=== PATIENT | male | born 1955 | race Caucasian/White ===

== ENCOUNTER 2021-09-06 11:10 | Emergency (ER) | payer MEDICARE, SELFPAY ==
--- NOTE | ~2021-09-06 | CT_ITS ---
EXAMINATION: CT abdomen pelvis w con EXAM DATE: 09/06/2021 12:29 INDICATION: Hematochezia, abdominal pain, GI bleeding, 3 episodes. History of bowel perforation. TECHNIQUE: Spiral CT of the abdomen and pelvis was performed following intravenous injection of 100 m L Omnipaque 350. Axial, coronal and sagittal images of the abdomen and pelvis were reviewed. The do se-length product (DLP) for this examination was 1071.52 mGy-cm. The exposure was tailored according to patient size (auto mA exposure control), and iterative reconstruction (ASIR) was used as addition al dose reduction technique. There is no prior study for comparison. FINDINGS: There is hepatic steatosis without suspicious focal lesion identified. Spleen, adrenal glan ds, pancreas are unremarkable. Gallbladder is unremarkable. No biliary obstruction. Portal and spl enic veins are patent. Kidneys enhance symmetrically. There is no hydronephrosis. 2.7 cm left renal cyst. Mild prostatomegaly. Some diffuse bladder wall thickening, could indicate chronic cystitis. Acute cystitis not excludable. There is no retroperitoneal or pelvic lymphadenopathy. There is mod erate scattered arteriosclerotic disease. Evaluation of the colon demonstrates moderate sigmoid diverticulosis without evidence of diverticulit is. There is some fluid within the sigmoid colon, but not proximally. This could indicate that source of bleeding is somewhere within this region rather than more proximal. The appendix is normal. The stomach and small bowel are unremarkable. No free intraperitoneal gas. Heart is normal in size wi th endocardial fat along the inferior wall, evidence of old infarction. The lung bases are unremarka ble. There are no osteoblastic or osteolytic lesions identified. IMPRESSION: 1. Small amount of sigmoid fluid, moderate diverticulosis. No colonic fluid elsewhere, which could in dicate that source of bleeding is sigmoid region. No perisigmoid inflammation. 2. Endocardial fat along the anterior wall consistent with prior infarction. 3. Hepatic steatosis. Reviewed, dictated and finalized at location A. IMPRESSION: 1. Small amount of sigmoid fluid, moderate diverticulosis. No colonic fluid els ewhere, which could indicate that source of bleeding is sigmoid region. No lolly sigmoid inflammation. 2. Endocardial fat along the anterior wall consistent with prior infarction. 3. Hepatic steatosis.
[2021-09-06 11:13] VITALS: BP 163/85; PULSE 63; RESP 16; TEMP 36.6; O2SAT 97
--- NOTE | 2021-09-06 11:21 | ED.GIBLEED ---
HPI - GI Bleed General Chief complaint: GI Bleed Stated complaint: GI Bleeding Time Seen by Provider: 09/06/21 11:21 Source: patient Mode of arrival: ambulatory Limitations: no limitations History of Present Illness HPI Narrative: Patient is a 65-year-old male with a history of acid reflux, hypertension, coronary artery disease, type 2 diabetes presenting for evaluation of bright red blood per rectum. Patient states that over the course of the morning, he has had 2 bowel movements with bright red blood present in them. Patient denies any pain. He denies any fever, chills, night sweats. No unintentional weight loss. Patient states that he ate shrimp, Mohawk fries for dinner last night. Does not think that any food was undercooked. No recent travel. Patient denies any dark or melanotic stool. No recent Pepto-Bismol, ibuprofen, beet ingestion. Patient denies history of this in the past. Patient states he does have a history of bowel perforation many years ago for which he had 5 pus pockets. Patient states that he required a large surgery of [facility], but never received a diagnosis as to why he had a bowel perforation. Patient does not follow with a french instructor. He is compliant with his medications including Plavix. Related Data Home Medications Medication Instructions Recorded Confirmed famotidine 20 mg tablet 20 mg PO BID tablet 01/07/21 05/17/21 atorvastatin 10 mg tablet 10 mg PO DAILY tablet 05/17/21 05/17/21 glipizide 10 mg tablet 10 mg PO BID tablet 05/17/21 05/17/21 metoprolol tartrate 25 mg tablet 25 mg PO BID tablet 05/17/21 05/17/21 Allergies Allergy/AdvReac Type Severity Reaction Status Date / Time No Known Allergies Allergy Mild Verified 09/06/21 11:18 Review of Systems Review of Systems: CONSTITUTIONAL: Denies fever, chills, or sweats. EYES: Denies visual changes, redness, or discharge. ENT: Denies rhinorrhea, congestion, sore throat, or otalgia. CARDIOVASCULAR: Denies chest pain, palpitations, or edema. RESPIRATORY: Denies cough or dyspnea. GASTROINTESTINAL: Denies abdominal pain, nausea, vomiting, reports loose stools this morning, reports bright red blood per rectum GENITOURINARY: Denies dysuria or hematuria. SKIN: Denies rash or itching. MUSCULOSKELETAL: Denies back pain, joint pain, or myalgia. NEUROLOGIC: Denies headache, numbness, or weakness. [facility] Past Medical History Medical History CAD in [place] artery Coronary artery disease Dyslipidemia, goal LDL below 100 Erectile dysfunction 06/11/2018 Essential (primary) hypertension GERD without esophagitis Myocardial infarction Type 2 diabetes mellitus without complication, without long-term current use of insulin Surgical History Surgical History History of angioplasty (~2010) History of cardiac cath 09/2010 History of coronary artery stent placement (~2010) x2 History of exploratory laparotomy 1980 for perforated intestine Family History Family History Father Family history of cardiovascular disease, Onset Age: 44 Acute myocardial infarction, Onset Age: 44 Family history of coronary artery disease, Onset Age: 44 Other Diabetes mellitus Social History Social History Smoking packs per day: 1 Smoking cigarettes per day: 20.0 Years smoked: 48 Smoking pack-years: 48.00 Smoking status: Current every day smoker Tobacco type: cigarettes Alcohol intake: current Alcohol use details: consumes 5 beers occasionally Substance use: never Substance use type: does not use Exam Narrative: GENERAL: Awake, alert, conversant HEAD: Normocephalic, atraumatic. EYES: PERRLA and EOMI. ENT: Nares clear, no rhinorrhea or epistaxis. Mucous membranes moist. NECK: Supple
[2021-09-06 11:29] LABS: Basophils Absolute Auto 0.1 K/mm3 (0.0-0.1); Eosinophils Absolute Auto 0.3 K/mm3 (0-0.3); Eosinophils Percent Auto 2.4 % (0-4.4); Hematocrit 47.9 % (42.0-52.0); Hemoglobin 15.7 g/dL (14.0-18.0); Immature Granulocyte Absolute 0.02 K/mm3 (0.00-0.031); Immature Granulocyte Percent A 0.2 % (0-0.5); Lymphocytes Absolute Auto 3.18 K/mm3 (0.9-3.2); Lymphocytes Percent Auto 30.3 % (18.3-44.2); Mean Corpuscular HGB Conc 32.8 g/dl (32-36); Mean Corpuscular Hemoglobin 30.4 pg (26-34); Mean Corpuscular Volume 92.6 fl (80-100); Mean Platelet Volume 9.7 fl (7.4-10.4); Monocytes Absolute Auto 0.6 K/mm3 (0.1-0.6); Neutrophils Absolute Auto 6.3 K/mm3 (1.3-6.7); Neutrophils Percent Auto 60.1 % (45.5-73.1); Platelet Count Result 273 k/mm3 (150-375); Red Blood Count 5.17 M/mm3 (4.6-6.20); Red Cell Distribution Width 13.2 % (11.5-14.5); White Blood Count 10.5 K/mm3 (4.5-10.0)
[2021-09-06 11:42] LABS: Prothrombin Time 12.8 Seconds (11.1-14.7)
[2021-09-06 11:43] LABS: Partial Thromboplastin Time 25.5 SECONDS (22.3-36.8)
[2021-09-06 11:54] LABS: Alanine Aminotransferase 43 U/L (4-50); Albumin Level 4.6 g/dL (3.5-5.1); Alkaline Phosphatase 72 U/L (38-126); Anion Gap 7 mmol/L (8-16); Aspartate Amino Transferase 27 U/L (17-59); Bilirubin,Total 0.5 mg/dL (0.2-1.3); Blood Urea Nitrogen 14 mg/dL (9-20); Calcium 10.2 mg/dL (8.4-10.2); Carbon Dioxide 28 mmol/L (22-30); Chloride 105 mmol/L (98-107); Estimated CRCL calculation 79 ml/min; Estimated Glomerular Filt Rate > 60; Glucose 159 mg/dL (65-110); Potassium 4.8 mmol/L (3.4-5.0); Sodium 140 mmol/L (137-145)
[2021-09-06 13:09] VITALS: BP 149/74; PULSE 61; RESP 16; O2SAT 99
== END 2021-09-06 13:12 | disposition home or self-care (01) ==
PROVIDERS: Emergency Provider Emergency Medicine; PCP Family Medicine
DX: K57.90 Diverticulosis of intestine, part unspecified, without perforation or abscess without bleeding (principal); K62.5 Hemorrhage of anus and rectum; I25.10 Atherosclerotic heart disease of native coronary artery without angina pectoris; I10 Essential (primary) hypertension; I25.2 Old myocardial infarction; E78.5 Hyperlipidemia, unspecified; E11.9 Type 2 diabetes mellitus without complications; K21.9 Gastro-esophageal reflux disease without esophagitis; Z95.5 Presence of coronary angioplasty implant and graft; F17.210 Nicotine dependence, cigarettes, uncomplicated; K76.0 Fatty (change of) liver, not elsewhere classified; Z79.84 Long term (current) use of oral hypoglycemic drugs
CPT/HCPCS: 36415; 74177; 80053; 85025; 85610; 85730; 86850; 86900; 86901; 99284; Q9967

== ENCOUNTER 2024-11-25 09:56 | Outpatient (CLI) | payer MEDICARE, SELFPAY ==
--- NOTE | 2024-11-25 | ECHO_ITS ---
Patient Info Name: Jatinder Hassan Age: 69 years : 1955 Gender: Male Ht: 72 in Wt: 215 lbs BSA: 2.25 m2 HR: 82 bpm BP: 122 / 81 mmHg Technical Quality: Fair Exam Date: 11/25/2024 10:24 AM Exam Location: Echo Lab Patient Status: Outpatient Admit Date: 11/25/2024 Staff Ordering Physician: AlexGumaro MD [employer]: Karishma Pacheco RDCS Attending Provider: AlexGumaro MD Referring Physician: Bill RAMIREZ; Exam Type: CA echo dop color flow w con Study Info Indications I10 - Essential (primary) hypertension Complete two-dimensional, color flow and Doppler transthoracic echocardiogram is performed with contrast to opacify the left ventricle and to improve the deliniation of the left ventricle endocardial borders. Contrast/Agitated Saline Contrast/Ag. Saline: Definity Amount: 2.00 ml Administered By: Karishma Pacheco RDCS New IV Access: Antecubital Space and Right Site Condition: No extravasation, Site dressing applied and IV removed Summary 1. Left ventricular systolic function is normal, estimated at 50-55%. 2. Left ventricular septal wall motion is abnormal with septal motion related to bundle branch block. 3. The left ventricular diastolic function is grade I diastolic dysfunction. 4. There is trace tricuspid valve regurgitation. 5. No pulmonary hypertension, estimated pulmonary arterial systolic pressure is 24 mmHg. Left Ventricle Left ventricular chamber dimension is normal. Left ventricular systolic function is normal, estimated at 50-55%. There is no increased left ventricular wall thickness. Left ventricular septal wall motion is abnormal with septal motion related to bundle branch block. The left ventricular diastolic function is grade I diastolic dysfunction. Right Ventricle Right ventricular chamber dimension is normal. Right ventricular systolic function is normal. Left Atria Left atrial chamber dimension is normal. Right Atria Right atrial chamber dimension is normal. Atrial Septum Intact interatrial septum visualized by color flow imaging. Aortic Valve The aortic valve is trileaflet. There is mild aortic valve sclerosis. There is no aortic valve stenosis. There is no aortic valve regurgitation. Pulmonic Valve The pulmonic valve is normal. There is no pulmonic valve stenosis. There is no pulmonic regurgitation. Mitral Valve The mitral valve has normal leaflets. There is no mitral valve stenosis. There is no mitral valve regurgitation. Tricuspid Valve The tricuspid valve leaflets are normal. There is no significant tricuspid valve stenosis. There is trace tricuspid valve regurgitation. No pulmonary hypertension, estimated pulmonary arterial systolic pressure is 24 mmHg. Pericardium/Pleural The pericardium appears normal. There is no pericardial effusion. Inferior Vena Cava Normal inferior vena cava with >50% collapse upon inspiration consistent with Empty right atrial pressure, 5 mmHg. Aorta The aortic root size at the sinus of Valsalva is normal. The prox ascending aorta size is normal. Left Ventricular Outflow Tract Name Value Normal LVOT 2D LVOT Diameter 1.91 cm LVOT Doppler LVOT Peak Gradient 5 mmHg LVOT Mean Gradient 3 mmHg LVOT VTI 19.31 cm LVOT VTI/AV VTI Ratio 0.88 LVOT Stroke Volume 55.49 ml LVOT CO 3.90 l/min LVOT CI 1.74 L/min/m2 Pulmonic Valve Name Value Normal RVOT Doppler RVOT Peak Gradient 2 mmHg PV Doppler PV Peak Gradient 3 mmHg Mitral Valve Name Value Normal MV Doppler MV Decel [place] 248.16 cm/s2 MV PHT 0 s MV Area (PHT) 3.84 cm2 4.00-5.00 MV Diastolic Function MV E Peak Velocity 49.01 cm/s MV A Peak Velocity 84.30 cm/s MV E/A 0.58 MV Decel Time 0 s Tricuspid Valve Name Value Normal TV Regurgitation Doppler TR Peak Velocity 216.54 cm/s TR Peak Gradient 13 mmHg Estimated PAP/RSVP RA Pressure 5 mmHg <=5 PA Systolic Pressure 24 mmHg <36 RV Systolic Pressure 24 mmHg <36 Aorta Name Value Normal Ascending Aorta Ao Root Diameter (MM) 4.21 cm Ao Root Diam Index (MM) 1.87 cm/m2 Aortic Valve Name Value Normal AV Doppler AV Peak Velocity 127.80 cm/s AV Peak Gradient 7 mmHg AV Mean Gradient 4 mmHg AV VTI 22.06 cm AV Area (Cont Eq VTI) 2.52 cm2 >=3.00 AV Area (Cont Eq Dom) 2.42 cm2 AV Regurgitation 2D LVOT Area 2.87 cm2 Ventricles Name Value Normal LV Dimensions 2D/MM IVS Diastolic Thickness (2D) 1.38 cm 0.60-1.00 IVS Diastole Thickness (MM) 0.86 cm 0.60-1.00 LVID Diastole (2D) 4.39 cm 4.20-5.80 LVID Diastole (MM) 7.39 cm 4.20-5.80 LVIW Diastolic Thickness (2D) 0.88 cm 0.60-1.00 LVIW Diastolic Thickness (MM) 1.57 cm 0.60-1.00 LVID Systole (2D) 2.75 cm 2.50-4.00 LVID Systole (MM) 4.35 cm 2.50-4.00 LVOT Diameter 1.91 cm LV Mass (2D Cubed) 174.92 g 88.00-224.00 LV Mass Index (2D Cubed) 0.01 g/cm2 0.00-0.01 Relative Wall Thickness (2D) 0.40 LV Mass (MM Cubed) 453.33 g 88.00-224.00 LV Mass Index (MM Cubed) 0.02 g/cm2 0.00-0.01 Relative Wall Thickness (MM) 0.43 LV Fractional Shortening/Ejection Fraction 2D/MM LV Fractional Shortening (2D) 37 % 25-43 LV Fractional Shortening (MM) 41 % 25-43 LV EF (MM Teicholz) 70 % 52-72 LV EF (2D Teicholz) 68 % 52-72 LV Diastolic Volume (4C MOD) 127.99 ml LV EF (4C MOD) 69 % LV Diastolic Volume (2C MOD) 132.86 ml LV EF (2C MOD) 57 % LV Diastolic Volume (BP MOD) 131.53 ml 62.00-150.00 LV Diastolic Volume Index (BP MOD) 0.06 l/m2 0.03-0.07 LV Systolic Volume (BP MOD) 49.62 ml 21.00-61.00 LV Systolic Volume Index (BP MOD) 0.02 l/m2 0.01-0.03 LV EF (BP MOD) 62 % 52-72 LV Diastolic Length (4C) 7.88 cm LV Systolic Length (4C) 6.58 cm LV Stroke Volume (4C MOD) 87.87 ml Atria Name Value Normal LA Dimensions LA Dimension (MM) 3.73 cm 3.00-4.10 LA Volume (4C A-L) 55.69 ml LA Volume (BP A-L) 61.40 ml RA Dimensions RA Area (4C) 16.85 cm2 <=18.00 Report Signatures
[2024-11-25] MEDS: PERFLUTREN LIPID MICROSPHERES 1.5 ML VIAL DILUTED TO 10 ML TOTAL VOLUME IV PUSH (11:00)
--- NOTE | 2024-11-25 11:18 | IVDEFINITY ---
Prior to administration of IV Definity the patient was educated on the risks and benefits of the imaging enhancing agent including potential adverse side effects. The patient verbalized understanding. Allergies were verified. No exclusion criteria were identified and at least one of the following inclusion criteria were met: 1) physician request, 2) patient technically difficult to image (per the [place] [employer]ocardi[employer] guidelines of two or more segments not discernable within the apical view), or 3) questionable left ventricular function. ?
== END 2024-11-25 09:57 | disposition home or self-care (01) ==
LOC: ANHCARD 09:59
PROVIDERS: PCP Family Medicine; Visit Provider Internal Medicine Cardiovascular Disease
DX: I11.9 Hypertensive heart disease without heart failure (principal); I44.7 Left bundle-branch block, unspecified
CPT/HCPCS: 93306; C8929; Q9957

== ENCOUNTER 2025-09-09 11:09 | Outpatient (CLI) | payer MEDICARE, SELFPAY ==
--- OUTSIDE RECORDS SUMMARY | 2020-09-09 04:20 | XMS_ITS | Continuity of Care Document ---
Author Organization [facility] Address [address] [place] [address] Phone Care Team Providers Care Noodle Maker Name Role Phone Antonio Flores MD, MD Unavailable Unavailable Allergies, Adverse Reactions, Alerts Substance Reaction Status Criticality No Known Allergies Active No Inform ation Medications Medication Instructions Dosage Effective Dates (start - stop) Status Comments Plavix 75 mg tablet - Active metformin 1,000 mg tablet take 1 tablet by oral route 2 times every day with morning and evening meals 1000 MG - Active lisinopril 5 mg tablet - Active metoprolol succinate ER 50 mg tablet,extended release 24 hr - Active atorvastatin 10 mg tablet - Active glipizide 10 mg tablet take 1 tablet by oral route every day before a meal 10 MG - Active Procedures Procedure Date X-ray exam shoulder minimum 2 views Kenalog Triamcinolone acetonide inj Asp/Injection, Major Joint W/ Ultrasound Office/outpatient visit,[facility] 2019 Advance Directives Directive Yes / No Effective Date File Name No Information Encounters Encounter Description Practice Location Reason(s) For Visit Diagnoses Date Provider Providers Copied on Encounter Office/outpa tient visit,new, [facility], [address] [facility] [facility], [place], [place], [id number], [place] tel:[phone] [facility] right shoulder pain (chief complaint) Calcific tendinitis of right shoulderIncomplet e rotatr-cuff tear/ruptr of r shoulder, not traumaBursitis of right shoulder 0 Sandra Alvarez. [address] [facility] [address], [address], [place], [place], [id number] , [place]. tel:[phone] Referring Provider: Antonio Flores MD T, [address] [facility] [address], [place], [address] . tel:[phone] Family History Family Member Type Diagnosis Age At Onset No Information Payers Payer name Insurance type Covered republican ID Authoriza tiian(s) [facility] [id number] Social History Type Description Quantity Date Captured Comments Alcohol Use Details Unknown Caffeine Use Details Unknown Tobacco Use Status Smoking Status Current every day smoker 2019 Non-Smoking Tobacco Use Details : No Details Available : 2.00 per day Sex Male Vital Signs Date / Time: Height Weight BMI Pulse Rate Blood Pressure Temperature Respiratory Rate Body Surface Area Head Circumference Head Circ. Percentile Wt./John. Percentile BMI percentile Pulse Ox Inhaled Ox 11:02 AM 72.00 in 100.698 kg (222.00 lbs) 30.1 1 kg/m anaid (2) Chief Complaint And Reason For Visit From encounter dated '09/09/2020 10:20'. right shoulder pain (chief complaint). Description: Mr Hassan is a 64 year old male who complains of right shoulder pain. He presents with pain on the right side. He states that the symptoms have been acute non-traumatic and began 6 weeks ago. The symptoms occur constantly. The problem is unchanged. Currently the patient states that the symptoms are moderate-severe. The pain is described as aching and stabbing. The symptoms occur with activity. He rates his current pain as 8/10. The symptoms are aggravated by daily activities, lifting away from the body, reaching behind, reaching overhead and sleeping in any position. Jatinder states that the symptoms are relieved by otc medicines and rest. In addition to right shoulder pain the patient is also experiencing decreased mobility, weakness and joint tenderness. Pertinent negatives include fever, joint instability and tingling in the arms. Prior NSAIDs include unspecified NSAIDS. He has had no previous treatment. Patient has not had any pertinent therapy for this condition. Patient has had no prior surgeries. There were no previous episodes. He experienced no previous injury. 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 He presents with pain on the right side. He states that the symptoms have been acute non-traumatic and began 6 weeks ago. The symptoms occur constantly. The problem is unchanged. Currently the patient states that the symptoms are moderate-severe. The pain is described as aching and stabbing. The symptoms occur with activity. He rates his current pain as 8/10. The symptoms are aggravated by daily activities, lifting away from the body, reaching behind, reaching overhead and sleeping in any position. Jatinder states that the symptoms are relieved by otc medicines and rest. In addition to right shoulder pain the patient is also experiencing decreased mobility, weakness and joint tenderness. Pertinent negatives include fever, joint instability and tingling in the arms. Prior NSAIDs include unspecified NSAIDS. He has had no previous treatment. Patient has not had any pertinent therapy for this condition. Patient has had no prior surgeries. There were no previous episodes. He experienced no previous injury. Functional Status Date Functional Assessmen t No Information Instructions Date Instruction Additional Infor mation The patient would li ke to proceed with a subacromial injection today, along with continued icing, NSAIDs/Tylenol, activity modifications, and physical therapy guided rehab and/or home strengthening exercises as appropriate. We discussed we could repeat an injection again in 12 weeks or more vs. more likely obtaining an MRI if not improved. The patient will follow up on an as needed basis and was instructed to call with any issues or concerns. Questions answered, verbalized understanding. Related to Bursitis of right shoulder Assessments Type Assessment Date assessment Calcific tendinitis of right dany ulder assessment Incomplete rotatr-cuff tear/rupt r of r shoulder, not trauma assessment Bursitis of right shoulder impression We discussed in deta il the symptoms, causes, treatment options, and expected outcomes of the patient's rotator cuff calcific tendonitis/bursitis and likely partial thickness tearing. We discussed the role of initial non-operative management strategies, including icing, the judicious use of anti-inflammatory medications with the approval of the patient's primary care physician, activity modifications, physical therapy and/or home exercises. We discussed the role of cortisone injections as well as biologic injections such as PRP, and the possible need for surgical intervention should non-surgical treatments fail. After a detailed discussion the patient and I have elected to proceed with the following plan. Mental Status Date Cognitive Assessment Orientation - [place] ed to time, place, person, situation.Normal Orientation Patient Care Teams Name Effective Dates (start - stop) Status Members No Information
[2025-09-09 13:10] LABS: Alanine Aminotransferase 33 U/L (6-50); Albumin Level 3.4 g/dL (3.5-5.1); Alkaline Phosphatase 211 U/L (38-126); Anion Gap 6 mmol/L (4-12); Aspartate Amino Transferase 36 U/L (17-59); Bilirubin,Total 0.8 mg/dL (0.2-1.3); Blood Urea Nitrogen 41 mg/dL (9-20); Calcium 8.6 mg/dL (8.4-10.2); Carbon Dioxide 27 mmol/L (22-30); Chloride 101 mmol/L (98-107); Estimated Glomerular Filt Rate 52; Glucose 274 mg/dL (65-110); Potassium 4.8 mmol/L (3.4-5.0); Sodium 134 mmol/L (137-145); Total Protein 6.5 g/dL (6.3-8.2)
--- OUTSIDE RECORDS SUMMARY | 2025-09-09 13:27 | XMS_ITS ---
Author Organization [facility] [address] Address [address] [place] [address] Care Team Providers Care Seasonal Customer Service Associate Name Role Phone Skip Quick MD Primary Care Provider Stu Kim MD Unavailable Gumaro Khan MD Unavailable [phone] Miscellaneous, Not In File Unavailable Unava ilable Johnny Nagy MD Unavailable [phone] Lionel Esquivel MD Unavailable [phone] Ryder De Leon MD Unavailable Active Problems Problem Noted Date Diagnosed Date Neuroendocrine carcinoma, high grade 09/03/2025 Peripheral edema 09/01/2025 Acute on chronic systolic heart failure 09/01/20 25 Neuroendocrine tumor 08/30/2025 Hematuria 08/27/2025 Assessment & Plan (08/29/2025 2:43 PM CDT): Patient status post cystoscopy with bleeding prostatic lesion ablation, continued to bleed. Developed bilateral ureteral obstruction. Repeat CT demonstrated interval worsening of the hydronephrosis. Urology attempted cystoscopy for ureteral stent placement without success due to obstructed ureters at outside hospital. Bilateral percutaneous nephrostomy tube placements done 08/27 -renal function improved from 2.64-1.33 today Continue CBI per Urology Monitor closely for postobstructive diuresis Continue with IV fluids for now, may discontinue tomorrow once renal function has improved Monitor renal function and hemoglobin daily Had leukocytosis on admission, 13.92. Continue with IV ceftriaxone Did have Bcx with E.faecalis in past 08/01/24- repeat blood cultures from 08/27 remain negative to date Continue Flomax Per Interventional Radiology, holding off on internalization of stents for 4-6 weeks Assessment & Plan (08/28/2025 1:29 PM CDT): Patient status post cystoscopy with bleeding prostatic lesion ablation, continued to bleed. Developed bilateral ureteral obstruction. Repeat CT demonstrated interval worsening of the hydronephrosis. Urology attempted cystoscopy for ureteral stent placement without success due to obstructed ureters at outside hospital. Bilateral percutaneous nephrostomy tube placements done 08/27 with impoving renal function Will continue CBI per urology Monitor closely for postobstructive diuresis IV fluids Monitor H&H and renal function closely - plan of percutaneous nephrostomy tube placement Noted significant leukocytosis, continue empiric IV Rocephin. Did have Bcx with E.faecalis in past 08/01/24- repeat BCx ordered pending from 08/27 Continue flomax Assessment & Plan (08/27/2025 12:11 PM CDT): Patient status post cystoscopy with bleeding prostatic lesion ablation, continued to bleed. Developed bilateral ureteral obstruction. Repeat CT demonstrated interval worsening of the hydronephrosis. Urology attempted cystoscopy for ureteral stent placement without success due to obstructed ureters. Urology recommended transferring the patient to the tertiary facility with IR availability for percutaneous nephrostomy tube placement and this is reason for transfer to [facility] 08/27. Will continue CBI. Keep NPO IV fluids Monitor H&H and renal function closely today - repeat in pm I have consulted IR today I have consulted urology today - plan of percutaneous nephrostomy tube placement Noted significant leukocytosis, started empirically on IV Rocephin. Did have Bcx with E.faecalis - repeat BCx ordered today Continue flomax Assessment & Plan (08/27/2025 4:52 AM CDT): Patient status post cystoscopy with bleeding prostatic lesion ablation, continued to bleed. Developed bilateral ureteral obstruction. Repeat CT demonstrated interval worsening of the hydronephrosis. Urology attempted cystoscopy for ureteral stent placement without success due to obstructed ureters. Your recommended transferring the patient to the tertiary facility with IR availability for percutaneous nephrostomy tube placement. Will continue CBI. Keep NPO IV fluids Monitor H&H PT INR in a.m. urology consult in a.m. Consult IR in a.m. for tentative plan of percutaneous nephrostomy tube placement Discussed with the patient, he states that he has not going to agree to any procedure without discussing with his urologist 1st. Noted significant leukocytosis, started empirically on IV Rocephin. GERD without esophagitis 08/27/2025 Obstructive uropathy 08/27/2025 Assessment & Plan (08/29/2025 2:43 PM CDT): Patient status post cystoscopy with bleeding prostatic lesion ablation, continued to bleed. Developed bilateral ureteral obstruction. Repeat CT demonstrated interval worsening of the hydronephrosis. Urology attempted cystoscopy for ureteral stent placement without success due to obstructed ureters at outside hospital. Bilateral percutaneous nephrostomy tube placements done 08/27 -renal function improved from 2.64-1.33 today Continue CBI per Urology Monitor closely for postobstructive diuresis Continue with IV fluids for now, may discontinue tomorrow once renal function has improved Monitor renal function and hemoglobin daily Had leukocytosis on admission, 13.92. Continue with IV ceftriaxone Did have Bcx with E.faecalis in past 08/01/24- repeat blood cultures from 08/27 remain negative to date Continue Flomax Per Interventional Radiology, holding off on internalization of stents for 4-6 weeks Assessment & Plan (08/28/2025 1:29 PM CDT): Patient status post cystoscopy with bleeding prostatic lesion ablation, continued to bleed. Developed bilateral ureteral obstruction. Repeat CT demonstrated interval worsening of the hydronephrosis. Urology attempted cystoscopy for ureteral stent placement without success due to obstructed ureters at outside hospital. Bilateral percutaneous nephrostomy tube placements done 08/27 with impoving renal function Will continue CBI per urology Monitor closely for postobstructive diuresis IV fluids Monitor H&H and renal function closely - plan of percutaneous nephrostomy tube placement Noted significant leukocytosis, continue empiric IV Rocephin. Did have Bcx with E.faecalis in past 08/01/24- repeat BCx ordered pending from 08/27 Continue flomax Assessment & Plan (08/27/2025 12:11 PM CDT): Patient status post cystoscopy with bleeding prostatic lesion ablation, continued to bleed. Developed bilateral ureteral obstruction. Repeat CT demonstrated interval worsening of the hydronephrosis. Urology attempted cystoscopy for ureteral stent placement without success due to obstructed ureters. Urology recommended transferring the patient to the tertiary facility with IR availability for percutaneous nephrostomy tube placement and this is reason for transfer to [facility] 08/27. Will continue CBI. Keep NPO IV fluids Monitor H&H and renal function closely today - repeat in pm I have consulted IR today I have consulted urology today - plan of percutaneous nephrostomy tube placement Noted significant leukocytosis, started empirically on IV Rocephin. Did have Bcx with E.faecalis - repeat BCx ordered today Continue flomax Liver lesion 08/27/2025 Assessment & Plan (08/29/2025 2:43 PM CDT): Will need MRI liver to further characterize and her colleagues discussion with Radiology on 09/28, MRI needs to be done with contrast to further characterize and would wait until his renal function improved before ordering My colleague sent a message to IR to see what their thoughts are on getting tissue samples Re-evaluate tomorrow, if renal function improves, consider MRI of the liver with and without contrast for further characterization of liver lesion Assessment & Plan (08/28/2025 1:29 PM CDT): Will need MRI liver to further characterize and I discussed with Radiology today, MRI needs to be done with contrast to further characterize and would wait until his renal function improved before ordering I sent a message to IR to see what their thoughts are on getting tissue samples Assessment & Plan (08/27/2025 12:11 PM CDT): Will need MRI liver to further characterize Acute blood loss anemia 08/27/2025 Assessment & Plan (08/29/2025 2:43 PM CDT): Follow hemoglobin daily Leukocytosis 08/27/2025 Assessment & Plan (08/29/2025 2:43 PM CDT): Continues with IV antibiotics Acute kidney injury 08/21/2025 Assessment & Plan (08/29/2025 2:43 PM CDT): Patient status post cystoscopy with bleeding prostatic lesion ablation, continued to bleed. Developed bilateral ureteral obstruction. Repeat CT demonstrated interval worsening of the hydronephrosis. Urology attempted cystoscopy for ureteral stent placement without success due to obstructed ureters at outside hospital. Bilateral percutaneous nephrostomy tube placements done 08/27 -renal function improved from 2.64-1.33 today Continue CBI per Urology Monitor closely for postobstructive diuresis Continue with IV fluids for now, may discontinue tomorrow once renal function has improved Monitor renal function and hemoglobin daily Had leukocytosis on admission, 13.92. Continue with IV ceftriaxone Did have Bcx with E.faecalis in past 08/01/24- repeat blood cultures from 08/27 remain negative to date Continue Flomax Per Interventional Radiology, holding off on internalization of stents for 4-6 weeks Assessment & Plan (08/28/2025 1:29 PM CDT): Patient status post cystoscopy with bleeding prostatic lesion ablation, continued to bleed. Developed bilateral ureteral obstruction. Repeat CT demonstrated interval worsening of the hydronephrosis. Urology attempted cystoscopy for ureteral stent placement without success due to obstructed ureters at outside hospital. Bilateral percutaneous nephrostomy tube placements done 08/27 with impoving renal function Will continue CBI per urology Monitor closely for postobstructive diuresis IV fluids Monitor H&H and renal function closely - plan of percutaneous nephrostomy tube placement Noted significant leukocytosis, continue empiric IV Rocephin. Did have Bcx with E.faecalis in past 08/01/24- repeat BCx ordered pending from 08/27 Continue flomax Assessment & Plan (08/27/2025 12:11 PM CDT): Patient status post cystoscopy with bleeding prostatic lesion ablation, continued to bleed. Developed bilateral ureteral obstruction. Repeat CT demonstrated interval worsening of the hydronephrosis. Urology attempted cystoscopy for ureteral stent placement without success due to obstructed ureters. Urology recommended transferring the patient to the tertiary facility with IR availability for percutaneous nephrostomy tube placement and this is reason for transfer to [facility] 08/27. Will continue CBI. Keep NPO IV fluids Monitor H&H and renal function closely today - repeat in pm I have consulted IR today I have consulted urology today - plan of percutaneous nephrostomy tube placement Noted significant leukocytosis, started empirically on IV Rocephin. Did have Bcx with E.faecalis - repeat BCx ordered today Continue flomax Prostate mass 08/06/2025 Assessment & Plan (08/29/2025 8:57 AM CDT): Pathology from transurethral resection of the prostate on 08/25 is pending Pending results of pathology, may need to consider biopsy of lymph nodes, liver lesions for definitive diagnosis Assessment & Plan (08/28/2025 1:29 PM CDT): Versus pelvic mass asking IR to review for possible tissue sample Chest wall muscle strain, initial encounter 11/2024 Prostatitis 08/06/2025 PAF (paroxysmal atrial fibrillation) 09/16/2024 Assessment & Plan (08/29/2025 8:57 AM CDT): Continue to hold Eliquis, aspirin, Plavix due to hematuria. It was discontinued by Dr. Hernandez, cardiology, at outside facility. Continue Lipitor. Continue to Lisinopril on hold due to YUDY. Continue Lopressor 100 mg b.i.d. Continue amiodarone. Assessment & Plan (08/28/2025 1:29 PM CDT): Continue to hold Eliquis, aspirin, Plavix due to hematuria. It was discontinued by Dr. Hernandez, cardiology, at outside facility. Continue Lipitor. Continue to Lisinopril on hold due to YUDY. Continue Lopressor 100 mg b.i.d. Continue amiodarone. Assessment & Plan (08/27/2025 12:11 PM CDT): Continue to hold Eliquis, aspirin, Plavix due to hematuria. It was discontinued by Dr. Hernandez, cardiology, at outside facility. Continue Lipitor. Continue to Lisinopril on hold due to YUDY. Continue Lopressor 100 mg b.i.d. Continue amiodarone. Assessment & Plan (08/27/2025 4:52 AM CDT): Will hold Eliquis, aspirin, Plavix due to hematuria. It was discontinued by Dr. Hernandez, cardiology, at outside facility. Continue Lipitor. Lisinopril on hold due to YUDY. Continue Lopressor 100 mg b.i.d., amiodarone. Chest pain, unspecified type 08/01/2024 Lesion of adrenal gland 08/01/2024 Renal lesion 08/01/2024 DM (diabetes mellitus) 08/01/2024 Assessment & Plan (08/29/2025 2:43 PM CDT): Hemoglobin A1c 10 Continue with Lantus 27, increase mealtime insulin to 8 units with meals and a.c. HS correction 2 for 50 above 150 Hold home glipizide and metformin Will likely need to be discharged on insulin, he says he has been on insulin before. He does not have an outpatient implementation services analyst, will need his primary care physician to send referral lighting engineering technician consulted -discussed with Dottie. Plan for another educational meeting on Monday. Assessment & Plan (08/28/2025 1:29 PM CDT): Hemoglobin A1c 10 Continue with Lantus 27 and adjusted to mealtime insulin 5 units with meals and a.c. HS correction 2 for 50 above 150 Holding home glipizide and metformin likely will need discharge on insulin and will ask Diabetes Education to see Assessment & Plan (08/27/2025 12:11 PM CDT): Hemoglobin A1c 10 Continue with Lantus 27 and SSI q 4 hr while npo 2:50 > 200 Assessment & Plan (08/27/2025 4:52 AM CDT): Hemoglobin A1c 10 Continue with Lantus and SSI Coronary artery disease (CAD) excluded CAD (coronary artery disease) 06/14/2024 Assessment & Plan (08/29/2025 8:57 AM CDT): Continue to hold Eliquis, aspirin, Plavix due to hematuria. It was discontinued by Dr. Hernandez, cardiology, at outside facility. Continue Lipitor. Continue to Lisinopril on hold due to YUDY. Continue Lopressor 100 mg b.i.d. Continue amiodarone. Assessment & Plan (08/28/2025 1:29 PM CDT): Continue to hold Eliquis, aspirin, Plavix due to hematuria. It was discontinued by Dr. Hernandez, cardiology, at outside facility. Continue Lipitor. Continue to Lisinopril on hold due to YUDY. Continue Lopressor 100 mg b.i.d. Continue amiodarone. Assessment & Plan (08/27/2025 12:11 PM CDT): Continue to hold Eliquis, aspirin, Plavix due to hematuria. It was discontinued by Dr. Hernandez, cardiology, at outside facility. Continue Lipitor. Continue to Lisinopril on hold due to YUDY. Continue Lopressor 100 mg b.i.d. Continue amiodarone. Assessment & Plan (08/27/2025 4:52 AM CDT): Will hold Eliquis, aspirin, Plavix due to hematuria. It was discontinued by Dr. Hernandez, cardiology, at outside facility. Continue Lipitor. Lisinopril on hold due to YUDY. Continue Lopressor 100 mg b.i.d., amiodarone. Essential hypertension 06/11/2024 Assessment & Plan (08/29/2025 8:57 AM CDT): Continue to hold Eliquis, aspirin, Plavix due to hematuria. It was discontinued by Dr. Hernandez, cardiology, at outside facility. Continue Lipitor. Continue to Lisinopril on hold due to YUDY. Continue Lopressor 100 mg b.i.d. Continue amiodarone. Assessment & Plan (08/28/2025 1:29 PM CDT): Continue to hold Eliquis, aspirin, Plavix due to hematuria. It was discontinued by Dr. Hernandez, cardiology, at outside facility. Continue Lipitor. Continue to Lisinopril on hold due to YUDY. Continue Lopressor 100 mg b.i.d. Continue amiodarone. Assessment & Plan (08/27/2025 12:11 PM CDT): Continue to hold Eliquis, aspirin, Plavix due to hematuria. It was discontinued by Dr. Hernandez, cardiology, at outside facility. Continue Lipitor. Continue to Lisinopril on hold due to YUDY. Continue Lopressor 100 mg b.i.d. Continue amiodarone. Assessment & Plan (08/27/2025 4:52 AM CDT): Will hold Eliquis, aspirin, Plavix due to hematuria. It was discontinued by Dr. Hernandez, cardiology, at outside facility. Continue Lipitor. Lisinopril on hold due to YUDY. Continue Lopressor 100 mg b.i.d., amiodarone. Mixed hyperlipidemia 06/11/2024 Assessment & Plan (08/29/2025 8:57 AM CDT): Continue to hold Eliquis, aspirin, Plavix due to hematuria. It was discontinued by Dr. Hernandez, cardiology, at outside facility. Continue Lipitor. Continue to Lisinopril on hold due to YUDY. Continue Lopressor 100 mg b.i.d. Continue amiodarone. Assessment & Plan (08/28/2025 1:29 PM CDT): Continue to hold Eliquis, aspirin, Plavix due to hematuria. It was discontinued by Dr. Hernandez, cardiology, at outside facility. Continue Lipitor. Continue to Lisinopril on hold due to YUDY. Continue Lopressor 100 mg b.i.d. Continue amiodarone. Assessment & Plan (08/27/2025 12:11 PM CDT): Continue to hold Eliquis, aspirin, Plavix due to hematuria. It was discontinued by Dr. Hernandez, cardiology, at outside facility. Continue Lipitor. Continue to Lisinopril on hold due to YUDY. Continue Lopressor 100 mg b.i.d. Continue amiodarone. Assessment & Plan (08/27/2025 4:52 AM CDT): Will hold Eliquis, aspirin, Plavix due to hematuria. It was discontinued by Dr. Hernandez, cardiology, at outside facility. Continue Lipitor. Lisinopril on hold due to YUDY. Continue Lopressor 100 mg b.i.d., amiodarone. Current Treatment and Therapy Plans CARBOplatin / Etoposide 21 Day Cycles - Small Cell Lung* Plan Start Date: 08/31/2025 Plan Provider:Ryder De Leon MD Linked Problems Neuroendocrine tumor (HCC)Ne uroendocrine carcinoma, high grade (HCC) Treatment Medications Current Day (Day 1 , Cycle 2 - Planned for 09/22/2025) Next Day (Day 2, Cycle 2 - Planned for 09/23/2025) CARBOplatin (PARAPLATIN)CARBOplatin (PARAPLATIN) IVPB in 250 mLdexAMETHasone (DECADRON)etoposide (TOPOSAR)etoposide (VEPESID) IVPB in 500 mL CARBOplatin (PARAPLATIN) 666 mg in sodium chloride 0.9% 250 mL IVPB (By AUC)etoposide (TOPOSAR) 188 mg in sodium chloride 0.9% (PVC-FREE) 500 mL IVPB etoposide (TOPOSAR) 188 mg in sodium chloride 0.9% (PVC-FREE) 500 mL IVPB Past Treatment and Therapy Plans No past plan information found. Lifetime Dose Tracking * Chemical Lifetime Dose Automatic Entry Manual Entr y Fluoro Time 14.8 minutes 11.2 minutes 3.6 minutes etoposide 241.026 mg/m2 (564 mg) 241.026 mg/m2 (564 mg) 0 mg/m2 (0 mg) Air kerma at the reference point (Ka,r) 193.4 mGy 193.4 mGy 0 mGy Resolved Problems Problem Noted Date Diagnosed Date Resolved Date Coronary artery disease of n ative artery of [place] heart with stable angina pectoris 06/11/2024 09/16/2024
--- OUTSIDE RECORDS SUMMARY | 2025-09-09 13:27 | XMS_ITS | Clinical Summary ---
Author Organization [facility] [place] [address] Address [address] [place] [address] Care Team Providers Care Mechanical Design Technician Name Role Phone Skip Quick MD Primary Care Provider Stu Kim MD Unavailable [phone] Gumaro Khan MD Unavailable [phone] Miscellaneous, Not In File Unavailable Unava ilable Johnny Nagy MD Unavailable [phone] Lionel Esquivel MD Unavailable Ryder De Leon MD Unavailable [phone] Allergies No known active allergies Medications glipiZIDE (GLUCOTROL) 10 mg tablet Take 2 tablets (20 mg total) by mouth 2 (two) times a day 024 Active metFORMIN (GLUCOPHAGE) 1,000 mg tablet Take 1 tablet (1,000 mg total) by mouth 2 (two) times a day 024 Active multivitamin tablet Take 1 tablet by mouth daily Active famotidine (PEPCID) 20 mg tablet Take 1 tablet (20 mg total) by mouth daily Active aspirin 81 mg enteric coated tabletIndicati ons:prevention of thrombosis Take 1 tablet (81 mg total) by mouth daily 30 tablet 1 024 Active atorvastatin (LIPITOR) 80 mg tablet Take 1 tablet (80 mg total) by mouth nightly 30 tablet 1 024 2024 Active amiodarone (PACERONE) 200 mg tablet Take 1 tablet (200 mg total) by mouth daily 30 tablet 11 Active Additional Information Patient not taking.Reported on 09/16/2024 metoprolol tartrate (LOPRESSOR) 50 mg immediate release tablet Take 1 tablet (50 mg total) by mouth 2 (two) times a day 60 tablet 11 024 2024 Active potassium chloride ER (KLOR-CON) 20 mEq CR tablet Take 1 tablet (20 mEq total) by mouth daily 60 tablet 2 Active traMADoL (ULTRAM) 50 mg tabletIndicati ons:Chest wall muscle strain, initial encounter Take 1 tablet (50 mg total) by mouth every 8 (eight) hours as needed for pain P.r.n. pain not relieved by nrcm-fso-rdmiicq pain medication. Take with food. Collaborating physician Isac Cade MD 20 tablet Active tiZANidine (ZANAFLEX) 4 mg tabletIndicati ons:Chest wall muscle strain, initial encounter Take 0.5-1 tablets (2-4 mg total) by mouth every 8 (eight) hours as needed (Take as directed to relax muscles) Collaborating physician Isac Cade MD 20 tablet Active lisinopriL (PRINIVIL,ZEST RIL) 10 mg tablet Take 1 tablet (10 mg total) by mouth daily Active naproxen (NAPROSYN) 500 mg tablet Take 1 tablet (500 mg total) by mouth 2 (two) times a day Active oxyBUTYnin XL (DITROPAN-XL) 10 mg 24 hr tablet Take 1 tablet (10 mg total) by mouth daily Active tamsulosin (FLOMAX) 0.4 mg extended release capsule Take 1 capsule (0.4 mg total) by mouth daily Active blood-glucose, charging crane operator,cont (Dexcom G7 Vending Machine Servicer) misc Use as directed. 1 each Active blood-glucose sensor (Dexcom G7 Sensor) device Use as directed. Change sensor every 10 days. 3 each Active blood-glucose meter kit Use as directed. 1 kit Active blood glucose diagnostic (glucose blood) strip Use as directed up to four times a day. 100 each 1 Active lancets misc Use as directed up to 4 times a day. 100 each 1 Active alcohol swabs (Alcohol Wipes) pads, medicated Use as directed. 100 each Active dexAMETHasone (DECADRON) 4 mg tabletIndicati ons:Neuroendoc rine tumor (HCC) Take 8 mg (2 tablets) by mouth once on Day 4 following each chemotherapy cycle. 8 tablet Active prochlorperazi ne (Compazine) 10 mg tabletIndicati ons:Neuroendoc rine tumor (HCC) Take 1 tablet (10 mg total) by mouth every 6 (six) hours as needed for nausea or vomiting Use first for nausea 60 tablet 3 Active ondansetron (ZOFRAN) 8 mg tabletIndicati ons:Neuroendoc rine tumor (HCC) Take 1 tablet (8 mg total) by mouth every 8 (eight) hours as needed for nausea or vomiting Use if prochlorperazine does not stop nausea. 24 tablet 3 Active HYDROcodone-ac etaminophen (NORCO) 10-325 mg per tabletIndicati ons:Pain Take 1 tablet by mouth every 4 (four) hours as needed for pain 20 tablet Active furosemide (LASIX) 20 mg tablet Take 1 tablet (20 mg total) by mouth daily 60 tablet 2025 Active acetaminophen 500 mg capsuleIndicat ions:Pain Take 2 capsules (1,000 mg total) by mouth every 6 (six) hours as needed for pain or headaches 2024 Discontinued docusate sodium (COLACE) 100 mg capsuleIndicat ions:constipat ion Take 1 capsule (100 mg total) by mouth 2 (two) times a day 60 capsule 2024 Discontinued oxyCODONE-acet aminophen (PERCOCET) 5-325 mg per tabletIndicati ons:Pain Take 2 tablets by mouth every 6 (six) hours as needed for pain 24 tablet 2024 Discontinued apixaban (ELIQUIS) 5 mg tabletIndicati ons:atrial fibrillation Take 1 tablet (5 mg total) by mouth every 12 (twelve) hours 60 tablet 2024 Discontinued(S top Taking at Discharge) polyethylene glycol (MIRALAX) 17 gram/dose bulk powderIndicati ons:constipati on Take 17 g by mouth 2 (two) times a day 1020 g 2024 Discontinued furosemide (LASIX) 20 mg tablet Take 1 tablet (20 mg total) by mouth daily 60 tablet 1 2024 Discontinued irbesartan (AVAPRO) 75 mg tablet Take 1 tablet (75 mg total) by mouth nightly 60 tablet 2024 Discontinued(S top Taking at Discharge) clopidogreL (PLAVIX) 75 mg tabletIndicati ons:Acute Coronary Syndrome Take 1 tablet (75 mg total) by mouth daily 90 tablet 3 2024 Discontinued(S top Taking at Discharge) cefdinir (OMNICEF) 300 mg capsuleIndicat ions:Prostatit is, unspecified prostatitis type Take 1 capsule (300 mg total) by mouth 2 (two) times a day for 10 days Antibiotic to treat prostate infection. 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 Will continue CBI. Keep NPO IV [...] and this is reason for transfer to [facility] 08/27. Will continue CBI. Keep NPO IV [...] and this is reason for transfer to [facility] 08/27. Will continue CBI. Keep NPO IV [...] before. 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 Plan for another [...] YUDY. Continue Lopressor 100 mg b.i.d., amiodarone. Resolved Problems Problem Noted Date Diagnosed Date Resolved Date Coronary artery disease of n ative artery of [place] heart with stable angina pectoris 06/11/2024 09/16/2024 Encounters Date Type Department Care Team Description 09/04/2025 11:15 AM CDT Infusion [facility] [address] [place] [phone] Neuroendocrine carcinoma, high grade (HCC); Chemotherapy induced neutropenia 09/04/2025 Orders Only [facility] [address] [place] [phone] Ryder De Leon MD Neuroendocrine carcinoma, high grade (HCC) (Primary Dx) 09/04/2025 Telephone [facility] [address] [place] [phone] Janeen Mathew RN 09/04/2025 Orders Only [facility] [address] [place] [phone] Ryder De Leon MD Neuroendocrine carcinoma, high grade (HCC) (Primary Dx); Chemotherapy induced neutropenia 09/01/2025 Orders Only [facility] [address] [place] [phone] Jody Estevez, [facility] 08/27/2025 Orders Only [facility] - Interventional Radiology [address] [place] [phone] Hossein Veronica RN 08/26/2025 11:38 PM CDT - 09/04/2025 11:53 AM CDT Hospital Encounter [address] [phone] Jeremias Stahl DO Wood, Emily Marie, DO Merza, Thishara, MD Yew, MD Cuong Valdez Juletta, MD Hematuria, unspecified type [R31.9] (Primary Dx); Acute kidney injury; Neuroendocrine tumor (HCC); Peripheral edema [R60.0]; Acute on chronic systolic heart failure (HCC) [I50.23]; Coronary artery disease involving [place] coronary artery of [place] heart without angina pectoris [I25.10]; Essential hypertension [I10]; Mixed hyperlipidemia [E78.2] Discharge Disposition: Discharge to home or self care 08/26/2025 10:54 PM CDT - 08/26/2025 11:59 PM CDT Hospital Encounter [facility] Discharge Disposition: Discharge to home or self care 08/26/2025 Orders Only [facility] Hospitalists [address] [place] [phone] Jeremias Stahl DO 08/25/2025 1:30 PM CDT - 08/25/2025 2:45 PM CDT Surgery [facility] Operating Room [address] [place] [address] Elva Victoria MD CYSTOSCOPY CLOT EVACUATION, RESECTION bleeding prosatic tissue, cystogram, weems placement 08/25/2025 1:19 PM CDT Anesthesia Event [facility] Operating Room [address] [place] [address] Tim Hianes DO 08/21/2025 8:30 AM CDT - 08/26/2025 10:45 PM CDT Hospital Encounter [facility] Surgery Care [address] [place] [address] Liliana Mei MD Akuse, Sewuese Elizabeth, MD Acute kidney injury (Primary Dx); Urinary retention; Hematuria, unspecified type Discharge Disposition: Discharge to a short term hospital for IP 08/06/2025 2:41 PM CDT - 08/06/2025 4:46 PM CDT Emergency [facility] Emergency Department [address] [place] [address] Prostate mass (Primary Dx); Chest wall muscle strain, initial encounter; Prostatitis, unspecified prostatitis type Discharge Disposition: Discharge to home or self care from Last 3 Months Surgical History Surgery Date Site/Laterality Comments CARDIAC STENT PLACEMENT x4 COLECTOMY 11/06/1980 - 11/05/1981 perforation SHOULDER SURGERY Right fx clavicle PERCUTANEOUS NEPHROSTOMY PCN BILATERAL 08/27/2025 Bilateral Medical History Medical History Date Comments Diabetes mellitus Hypertension Hyperlipidemia Coronary artery disease History of coronary angioplasty with insertion o f stent Myocardial infarction (HCC) Shortness of breath on exertion GERD (gastroesophageal reflux disease) Type 2 diabetes mellitus History of transfusion Family History Relation Name Status Comments Father Mother Social History Tobacco Use Types Packs/Day Years Used Date Smoking Tobacco: Every Day Cigarettes 1 53.2 Started: 06/19/1972 Tobacco Cessation:Ready to Q uit: Not Asked; Counseling Given: Not Answered Comments:States he quit last Alcohol Use Standard Drinks/Week Comments Yes 0 (1 standard drink = 0.6 oz pur e alcohol) Social Connection and Isolation Panel Answer Date Recorded In a typical week, how many times do you talk on the phone with family, friends, or neighbors? Twice a week 08/02/2024 How often do you get togethe r with friends or relatives? Three times a week 08/02/2024 How often do you attend chur ch or mormon services? More than 4 times per year 08/02/2024 Do you belong to any clubs o r organizations such as temple groups, unions, fraternal or athletic groups, or school groups? Yes 08/02/2024 How often do you attend meet ings of the clubs or organizations you belong to? More than 4 times per year 08/02/2024 Are you , , di vorced, , never , or living with a partner? 08/02/2024 Overall Financial Resource Strain (CARDIA) Answe r Date Recorded How hard is it for you to pa y for the very basics like food, housing, medical care, and heating? Not hard at all 08/02/2024 PRAPARE - Transportation Answer Date Re corded In the past 12 months, has l ack of transportation kept you from medical appointments or from getting medications? No 07/08 In the past 12 months, has l ack of transportation kept you from meetings, work, or from getting things needed for daily living? No 08/02/2024 Housing Stability Vital Sign Answer Quan e Recorded In the last 12 months, was t here a time when you were not able to pay the mortgage or rent on time? No 08/02/2024 In the past 12 months, how m any times have you moved where you were living? 0 08/02/2024 At any time in the past 12 m [facility], were you homeless or living in a detention (including now)? No 08/02/2024 Social Connection and Isolation Panel Answer Date Recorded In a typical week, how many times do you talk on the phone with family, friends, or neighbors? More than three times a week 08/27/2025 How often do you get togethe r with friends or relatives? More than three times a week 08/27/2025 How often do you attend chur or mormon services? Patient declined 08/27/2025 Do you belong to any clubs o r organizations such as temple groups, unions, fraternal or athletic groups, or school groups? Patient declined 08/27/2025 How often do you attend meet ings of the clubs or organizations you belong to? Patient declined 08/27/2025 Are you , , di vorced, , never , or living with a partner? 08/27/2025 AUDIT-C Answer Date Recorded Q1: How often do you have a drink containing alc ohol? Monthly or less 08/25/2025 Q2: How many drinks containi ng alcohol do you have on a typical day when you are drinking? 1 or 2 08/25/2025 Q3: How often do you have si x or more drinks on one occasion? Never 08/25/2025 Overall Financial Resource Strain (CARDIA) Answe r Date Recorded How hard is it for you to pa y for the very basics like food, housing, medical care, and heating? Not very hard 08/27/2025 Hunger Vital Sign Answer Date Recorded Within the past 12 months, y ou worried that your food would run out before you got the money to buy more. Never true 08/27/20 25 Within the past 12 months, t he food you bought just didn't last and you didn't have money to get more. Never true 08/27/2025 PRAPARE - Transportation Answer Date Re corded In the past 12 months, has l ack of transportation kept you from medical appointments or from getting medications? No 08/07 In the past 12 months, has l ack of transportation kept you from meetings, work, or from getting things needed for daily living? No 08/27/2025 Housing Stability Vital Sign Answer Quan e Recorded In the last 12 months, was t here a time when you were not able to pay the mortgage or rent on time? No 08/27/2025 In the past 12 months, how m any times have you moved where you were living? 0 08/27/2025 At any time in the past 12 m [facility], were you homeless or living in a detention (including now)? No 08/27/2025 [facility] Utilities Answer Date Recorded In the past 12 months has th e electric, gas, oil, or water company threatened to shut off services in your home? No 08/27/2025 Personal Safety Answer Date Recorded Have you ever been in or are you currently in a harmful physical or emotional relationship or is someone making you feel afraid or unsafe? 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 Gender Identity Not on file Sexual Orientation Not on file Last Filed Vital Signs Vital Sign Reading Time Taken Comments Blood Pressure 135/80 09/04/2025 4:40 AM CDT Pulse 86 09/04/2025 7:46 AM CDT Temperature 36.4 C (97.5 F) 09/04/2025 4:40 AM CDT Respiratory Rate 18 09/04/2025 4:40 AM CDT Oxygen Saturation 97% 09/04/2025 4:40 AM CDT Inhaled Oxygen Concentration - - Weight 107.9 kg (237 lb 14 oz) 08/25/2025 1:04 P M CDT Height 182.9 cm (6' 0.01) 08/27/2025 12:45 AM C DT Body Mass Index 32.26 08/25/2025 1:04 PM CDT Plan of Treatment Health Maintenance Due Date Last Done Comments Albumin Creatinine Ratio, Urine 1954 Colon Cancer Screening-Colonoscopy 1954 Depression Screening 1954 Hepatitis C Screening 1954 Dilated Eye Exam 1954 Foot Exam 1954 Hepatitis B Screening 1972 Pneumococcal vaccine 65+ (1 of 2 - PCV) 1973 Zoster Vaccine (1 of 2) 1973 Lung Cancer Screening 2004 Well Visit 65+ 2019 Lipid Panel 06/28/2025 06/28/2024 Covid-19 Vaccine ( - 2024-2 6 season) 2025 07/26/2022, 09/21/2021, 02/09/2021, Additional history exists Influenza Vaccine (#1) 2025 , 11/21/2019, 10/04/2016, Additional history exists DTaP/Tdap/Td Vaccine (2 - Td or Tdap) 10/02/2025 10/02/2015 Hemoglobin A1C 02/20/2026 08/22/2025, 06/19/2024 Fall Risk Assessment 09/03/2026 09/03/2025 eGFR 09/04/2026 09/04/2025, 08/07, 09/02/2025, Additional history exists Prostate Cancer Screening-PSA Discontinued 08/06/2025 Abdominal Aortic Aneurysm (A AA) Screen Completed 08/26/2025 Goals Goal Patient Goal Type Associated Problems Recent Progress Patient-Stated? Author eSyM (Electronic Symptom Management) Care Plan eSyM Medical Oncology Monica Quinn, associate professor Procedure Name Priority Date/Time Associated Diagnosis Comments POCT GLUCOSE DEVICE Routine 09/04/2025 7 :34 AM CDT EGFR Routine 09/04/2025 4:59 AM CDT RENAL FUNCTION PANEL Routine 09/04/2025 4:59 AM CDT CBC WITHOUT DIFFERENTIAL Routine 09/04/2025 4:59 AM CDT POCT GLUCOSE DEVICE Routine 09/03/2025 9 :16 PM CDT POCT GLUCOSE DEVICE Routine 09/03/2025 4 :46 PM CDT POCT GLUCOSE DEVICE Routine 09/03/2025 11:46 AM CDT EGFR Routine 09/03/2025 8:36 AM CDT RENAL FUNCTION PANEL Routine 09/03/2025 8:36 AM CDT CBC WITHOUT DIFFERENTIAL Routine 09/03/2025 8:36 AM CDT POCT GLUCOSE DEVICE Routine 09/03/2025 7 :25 AM CDT POCT GLUCOSE DEVICE Routine 09/02/2025 8 :14 PM CDT POCT GLUCOSE DEVICE Routine 09/02/2025 4 :39 PM CDT POCT GLUCOSE DEVICE Routine 09/02/2025 11:40 AM CDT POCT GLUCOSE DEVICE Routine 09/02/2025 6 :45 AM CDT EGFR Routine 09/02/2025 3:18 AM CDT RENAL FUNCTION PANEL Routine 09/02/2025 3:18 AM CDT CBC WITHOUT DIFFERENTIAL Routine 09/02/2025 3:18 AM CDT POCT GLUCOSE DEVICE Routine 09/01/2025 7 :47 PM CDT POCT GLUCOSE DEVICE Routine 09/01/2025 4 :36 PM CDT POCT GLUCOSE DEVICE Routine 09/01/2025 11:45 AM CDT TRANSTHORACIC ECHO (TTE) COMPLETE W DOPPLER/CF WO CONTRAST Routine 09/01/2025 9:22 AM CDT POCT GLUCOSE DEVICE Routine 09/01/2025 7 :21 AM CDT EGFR Routine 09/01/2025 5:29 AM CDT PRO B-TYPE NATRIURETIC PEPTIDE Routine 09/01/2025 5:29 AM CDT RENAL FUNCTION PANEL Routine 09/01/2025 5:29 AM CDT CBC WITHOUT DIFFERENTIAL Routine 09/01/2025 5:29 AM CDT POCT GLUCOSE DEVICE Routine 08/31/2025 8 :49 PM CDT POCT GLUCOSE DEVICE Routine 08/31/2025 5 :02 PM CDT POCT GLUCOSE DEVICE Routine 08/31/2025 3 :44 PM CDT POCT GLUCOSE DEVICE Routine 08/31/2025 12:13 PM CDT POCT GLUCOSE DEVICE Routine 08/31/2025 8 :07 AM CDT EGFR Routine 08/31/2025 4:59 AM CDT RENAL FUNCTION PANEL Routine 08/31/2025 4:59 AM CDT CBC WITHOUT DIFFERENTIAL Routine 08/31/2025 4:59 AM CDT POCT GLUCOSE DEVICE Routine 08/31/2025 2 :33 AM CDT POCT GLUCOSE DEVICE Routine 08/30/2025 8 :43 PM CDT POCT GLUCOSE DEVICE Routine 08/30/2025 6 :12 PM CDT MRI ABDOMEN LIVER W WO CONTRAST ED Urgent/IP Urgent 08/30/2025 5:59 PM CDT POCT GLUCOSE DEVICE Routine 08/30/2025 12:05 PM CDT POCT GLUCOSE DEVICE Routine 08/30/2025 8 :12 AM CDT EGFR Routine 08/30/2025 5:02 AM CDT RENAL FUNCTION PANEL Routine 08/30/2025 5:02 AM CDT CBC WITHOUT DIFFERENTIAL Routine 08/30/2025 5:02 AM CDT POCT GLUCOSE DEVICE Routine 08/29/2025 11:21 PM CDT POCT GLUCOSE DEVICE Routine 08/29/2025 8 :32 PM CDT POCT GLUCOSE DEVICE Routine 08/29/2025 4 :06 PM CDT POCT GLUCOSE DEVICE Routine 08/29/2025 12:43 PM CDT POCT GLUCOSE DEVICE Routine 08/29/2025 7 :46 AM CDT EGFR Routine 08/29/2025 3:21 AM CDT BASIC METABOLIC PANEL Routine 08/29/2025 3:21 AM CDT CBC WITHOUT DIFFERENTIAL Routine 08/29/2025 3:21 AM CDT MAGNESIUM Routine 08/29/2025 3:21 AM CDT PHOSPHORUS Routine 08/29/2025 3:21 AM CDT POCT GLUCOSE DEVICE Routine 08/28/2025 8 :07 PM CDT POCT GLUCOSE DEVICE Routine 08/28/2025 4 :12 PM CDT POCT GLUCOSE DEVICE Routine 08/28/2025 11:42 AM CDT EGFR Routine 08/28/2025 5:48 AM CDT COMPREHENSIVE METABOLIC PANEL Routine 08/28/2025 5:48 AM CDT CBC WITHOUT DIFFERENTIAL Routine 08/28/2025 5:48 AM CDT MAGNESIUM Routine 08/28/2025 5:48 AM CDT PHOSPHORUS Routine 08/28/2025 5:48 AM CDT POCT GLUCOSE DEVICE Routine 08/28/2025 4 :17 AM CDT POCT GLUCOSE DEVICE Routine 08/28/2025 12:12 AM CDT POCT GLUCOSE DEVICE Routine 08/27/2025 8 :49 PM CDT EGFR Routine 08/27/2025 5:24 PM CDT HEMOGLOBIN AND HEMATOCRIT Routine 08/27/2025 5:24 PM CDT BASIC METABOLIC PANEL Routine 08/27/2025 5:24 PM CDT BLOOD CULTURE Routine 08/27/2025 5:24 PM CDT BLOOD CULTURE Routine 08/27/2025 5:24 PM CDT POCT GLUCOSE DEVICE Routine 08/27/2025 4 :52 PM CDT PERCUTANEOUS NEPHROSTOMY PCN BILATERAL IP Routine 08/27/2025 2:57 PM CDT POCT GLUCOSE DEVICE Routine 08/27/2025 11:39 AM CDT POCT GLUCOSE DEVICE Routine 08/27/2025 8 :29 AM CDT POCT GLUCOSE DEVICE Routine 08/27/2025 5 :03 AM CDT EGFR Routine 08/27/2025 4:45 AM CDT CBC WITHOUT DIFFERENTIAL Routine 08/27/2025 4:45 AM CDT BASIC METABOLIC PANEL Routine 08/27/2025 4:45 AM CDT POCT GLUCOSE DEVICE Routine 08/26/2025 8 :07 PM CDT POCT GLUCOSE DEVICE Routine 08/26/2025 4 :30 PM CDT POCT GLUCOSE DEVICE Routine 08/26/2025 11:[address] ABDOMEN PELVIS WO CONTRAST ED Urgent/IP Urgent 08/26/2025 10:08 AM CDT POCT GLUCOSE DEVICE Routine 08/26/2025 7 :40 AM CDT EGFR Routine 08/26/2025 4:15 AM CDT DIFFERENTIAL AUTO Routine 08/26/2025 4:1 5 AM CDT COMPREHENSIVE METABOLIC PANEL Routine 08/26/2025 4:15 AM CDT CBC WITH AUTO DIFFERENTIAL Routine 08/26/2025 4:15 AM CDT POCT GLUCOSE DEVICE Routine 08/26/2025 2 :28 AM CDT POCT GLUCOSE DEVICE Routine 08/25/2025 8 :08 PM CDT POCT GLUCOSE DEVICE Routine 08/25/2025 4 :36 PM CDT FL RETRO PYELO (IN OR) IP Routine 2:23 PM CDT POCT GLUCOSE DEVICE Routine 08/25/2025 2 :16 PM CDT DC AN ELECTIVE SUPRAGLOTTIC AIRWAY Routine 08/25/2025 1:30 PM CDT CYSTOSCOPY CLOT EVACUATION 08/25/2025 1:19 PM CDT HEMATURIA POCT GLUCOSE DEVICE Routine 08/25/2025 1 :05 PM CDT POCT GLUCOSE DEVICE Routine 08/25/2025 11:50 AM CDT SURGICAL PATHOLOGY Routine 08/25/2025 9: 26 AM CDT Hematuria, unspecified type POCT GLUCOSE DEVICE Routine 08/25/2025 7 :55 AM CDT EGFR Routine 08/25/2025 3:32 AM CDT DIFFERENTIAL AUTO Routine 08/25/2025 3:3 2 AM CDT COMPREHENSIVE METABOLIC PANEL Routine 08/25/2025 3:32 AM CDT CBC WITH AUTO DIFFERENTIAL Routine 08/25/2025 3:32 AM CDT POCT GLUCOSE DEVICE Routine 08/25/2025 2 :21 AM CDT POCT GLUCOSE DEVICE Routine 08/24/2025 8 :18 PM CDT POCT GLUCOSE DEVICE Routine 08/24/2025 4 :32 PM CDT POCT GLUCOSE DEVICE Routine 08/24/2025 11:09 AM CDT POCT GLUCOSE DEVICE Routine 08/24/2025 7 :53 AM CDT EGFR Routine 08/24/2025 3:41 AM CDT DIFFERENTIAL AUTO Routine 08/24/2025 3:4 1 AM CDT COMPREHENSIVE METABOLIC PANEL Routine 08/24/2025 3:41 AM CDT CBC WITH AUTO DIFFERENTIAL Routine 08/24/2025 3:41 AM CDT POCT GLUCOSE DEVICE Routine 08/24/2025 1 :59 AM CDT POCT GLUCOSE DEVICE Routine 08/23/2025 8 :11 PM CDT POCT GLUCOSE DEVICE Routine 08/23/2025 4 :38 PM CDT POCT GLUCOSE DEVICE Routine 08/23/2025 11:35 AM CDT US RETROPERITONEAL COMPLETE IP Routine 08/23/2025 10:06 AM CDT POCT GLUCOSE DEVICE Routine 08/23/2025 8 :00 AM CDT EGFR Routine 08/23/2025 3:52 AM CDT DIFFERENTIAL AUTO Routine 08/23/2025 3:5 2 AM CDT COMPREHENSIVE METABOLIC PANEL Routine 08/23/2025 3:52 AM CDT CBC WITH AUTO DIFFERENTIAL Routine 08/23/2025 3:52 AM CDT POCT GLUCOSE DEVICE Routine 08/23/2025 2 :37 AM CDT POCT GLUCOSE DEVICE Routine 08/22/2025 11:49 PM CDT POCT GLUCOSE DEVICE Routine 08/22/2025 10:09 PM CDT POCT GLUCOSE DEVICE Routine 08/22/2025 8 :12 PM CDT POCT GLUCOSE DEVICE Routine 08/22/2025 4 :29 PM CDT POCT GLUCOSE DEVICE Routine 08/22/2025 11:46 AM CDT POCT GLUCOSE DEVICE Routine 08/22/2025 7 :37 AM CDT EGFR Routine 08/22/2025 4:46 AM CDT DIFFERENTIAL AUTO Routine 08/22/2025 4:4 6 AM CDT HEMOGLOBIN A1C Routine 08/22/2025 4:46 AM CDT COMPREHENSIVE METABOLIC PANEL Routine 08/22/2025 4:46 AM CDT CBC WITH AUTO DIFFERENTIAL Routine 08/22/2025 4:46 AM CDT POCT GLUCOSE DEVICE Routine 08/22/2025 2 :03 AM CDT POCT GLUCOSE DEVICE Routine 08/21/2025 10:32 PM CDT POCT GLUCOSE DEVICE Routine 08/21/2025 9 :34 PM CDT DIFFERENTIAL AUTO Timed 08/21/2025 8:3 6 PM CDT CBC WITH AUTO DIFFERENTIAL Timed 08/21/2025 8:36 PM CDT POCT GLUCOSE DEVICE Routine 08/21/2025 7 :51 PM CDT POCT GLUCOSE DEVICE Routine 08/21/2025 4 :35 PM CDT VITAMIN B12 Add-On 08/21/2025 3:34 PM CDT FOLATE Add-On 08/21/2025 3:34 PM CDT IRON PROFILE W/ IBC Add-On 08/21/2025 3 :34 PM CDT FERRITIN Add-On 08/21/2025 3:34 PM CDT POCT GLUCOSE DEVICE Routine 08/21/2025 12:15 PM CDT URINE CULTURE Routine 08/21/2025 12:08 PM CDT EGFR STAT 08/21/2025 9:14 AM CDT URINALYSIS, MICROSCOPIC ONLY STAT 08/21/2025 9:14 AM CDT DIFFERENTIAL AUTO STAT 08/21/2025 9:1 4 AM CDT CBC WITH AUTO DIFFERENTIAL STAT 08/21/2025 9:14 AM CDT COMPREHENSIVE METABOLIC PANEL STAT 08/21/2025 9:14 AM CDT URINALYSIS AND REFLEX TO MICROSCOPIC AND CULTURE STAT 08/21/2025 9:[address] CHEST WO CONTRAST ED 08/06/2025 1:[address] KUB STONE WO CONTRAST ED 08/06/2025 1:32 PM CDT URINALYSIS, MICROSCOPIC ONLY STAT 08/06/2025 1:24 PM CDT URINALYSIS AND REFLEX TO MICROSCOPIC AND CULTURE STAT 08/06/2025 1:24 PM CDT PSA SCREEN Routine 08/06/2025 12:51 PM CDT EGFR STAT 08/06/2025 12:51 PM CDT DIFFERENTIAL AUTO STAT 08/06/2025 12:51 PM CDT COMPREHENSIVE METABOLIC PANEL STAT 08/06/2025 12:51 PM CDT CBC WITH AUTO DIFFERENTIAL STAT 08/06/2025 12:51 PM CDT LIPID PANEL Routine 06/28/2024 4:57 AM CDT from Last 3 Months or Most Recently Relevant to Health Maintenance Results * (ABNORMAL) POCT glucose (09/04/2025 7:34 AM CDT) Glucose, POC 219(H) 70 - 199 mg/dL Comment: For Glucose values <35 mg/dl when Hematocrit is >60 mg/dl,the test may not accurately detect significant hypoglycemia,and testing in the Laboratory should be considered if clinically indicated. Blood 09/04/2025 7:34 AM CDT 09/04/2025 7:34 AM CDT us Tomi Horton MD LAB POCT ORDERABLES - DEVICE Fi nal Result [facility] [address] Department [place] [address] * eGFR (09/04/2025 4:59 AM CDT) Pathologist [facility] eGFR 84 >=60 mL/min/1. 73 m2 Comment: Interpretive Data Reference Interval Normal >/= 90 mL/min/1.73m2 Mildly decreased* 60 - 89 mL/min/1.73m2 Mildly to moderately decreased 45 - 59 mL/min/1.73m2 Moderately to severely decreased 30 - 44 mL/min/1.73m2 Severely decreased 15 - 29 mL/min/1.73m2 Kidney Failure < 15 mL/min/1.73m2 *Relative to young adult level Estimated glomerular filtration rate is determined by the 2020 CKD-EPI equation recommended by the National Kidney Foundation (A Unifying Approach to GFR Estimation: Recommendations of the NKF-ASK Task Force on Reassessing the Inclusion of Race in Diagnosing Kidney Disease, JASN 2020). The CKD-EPI equation should not be used for patients with unstable renal function and has not been validated in children and those over 70. Current interpretive data was last reviewed 2021. Blood 09/04/2025 4:59 AM CDT 09/04/2025 7:20 AM CDT us Julienne Amaya MD LAB BLOOD ORDERABLES Final Res ult Performing Organization Address [facility] Co de Phone Number [facility] [address] [place] [address] * (ABNORMAL) CBC without differential (09/04/2025 4:59 AM CDT) WBC 11.21(H) 3.80 - 9.90 K/cumm Hgb 9.0(L) 13.0 - 17.5 g/dL [facility] Hct 29.7(L) 38.9 - 50.3 % [facility] Plt 306 150 - 400 K/cumm [facility] MPV 10.3 9.1 - 12.3 fL [facility] RBC 3.37(L) 4.30 - 5.80 M/cumm [facility] MCV 88.1 81.3 - 96.4 fL [facility] MCH 26.7(L) 27.1 - 33.3 pg [facility] MCHC 30.3(L) 32.3 - 35.7 g/dL [facility] RDW CV 15.8(H) 11.1 - 14.9 % [facility] RDW SD 49.8(H) 35.7 - 48.1 fL [facility] NRBC abs 0.00 0.00 - 0.01 K/cumm [facility] Blood 09/04/2025 4:59 AM CDT 09/04/2025 7:21 AM CDT us Taisha De Santiago DO LAB BLOOD ORDERABLES Final R esult Performing Organization Address City/[facility]/ZIP Co de Phone Number [facility] [address] [place] [address] * (ABNORMAL) Renal function panel (09/04/2025 4:59 AM CDT) [facility] Sodium 137 135 - 145 mmol/L Potassium, pl 4.3 3.3 - 4.9 mmol/L [facility] Chloride 98 97 - 110 mmol/L [facility] CO2 33(H) 22 - 32 mmol/L [facility] Anion gap 6 2 - 15 mmol/L [facility] BUN 28(H) 6 - 25 mg/dL [facility] Creatinine 0.97 0.80 - 1.30 mg/dL [facility] Glucose 231(H) 70 - 199 mg/dL [facility] Comment: Interpretive Data Fasting glucose >/= 126 mg/dl is diagnostic for diabetes. Fasting is defined as no caloric intake for at least 8 hours. Fasting glucose between 100 mg/dl to 125 mg/dl is diagnostic of prediabetes. In a patient with classic symptoms of hyperglycemia or hyperglycemic crisis, a random glucose >/= 200 mg/dl is diagnostic for diabetes. In the absence of unequivocal hyperglycemia, results should be confirmed by repeat testing. The classification and Diagnosis of Diabetes Diabetes Care 2021; 46: S19-S40. Current interpretive data was last revised 2022. Calcium 8.3(L) 8.5 - 10.3 mg/dL [facility] Phosphorus, pl 2.8 2.3 - 4.5 mg/dL [facility] Albumin 3.3(L) 3.5 - 5.0 g/dL [facility] Blood 09/04/2025 4:59 AM CDT 09/04/2025 7:20 AM CDT us Julienne Amaya MD LAB BLOOD ORDERABLES Final Res ult [facility] [address] Department [place] [address] * (ABNORMAL) POCT glucose (09/03/2025 9:16 PM CDT) [facility] Glucose, POC 308(H) 70 - 199 mg/dL Comment: For Glucose values <35 mg/dl when Hematocrit is >60 mg/dl,the test may not accurately detect significant hypoglycemia,and testing in the Laboratory should be considered if clinically indicated. Blood 09/03/2025 9:16 PM CDT 09/03/2025 9:16 PM CDT Tomi Horton MD LAB POCT ORDERABLES - DEVICE Fi nal Result Performing Organization Address [facility] Co de Phone Number [facility] [address] [facility] [employer] [place], [place] [id number] * (ABNORMAL) POCT glucose (09/03/2025 4:46 PM CDT) Glucose, POC 330(H) 70 - 199 mg/dL Comment: For Glucose values <35 mg/dl when Hematocrit is >60 mg/dl,the test may not accurately detect significant hypoglycemia,and testing in the Laboratory should be considered if clinically indicated. Glucose comment 1 RN/MD Notified [facility] Blood 09/03/2025 4:46 PM CDT 09/03/2025 4:46 PM CDT Tomi Horton MD LAB POCT ORDERABLES - DEVICE Fi nal Result Performing Organization Address [facility] de Phone Number [facility] [address] [facility] [employer] [place], [place] [id number] * (ABNORMAL) POCT glucose (09/03/2025 11:46 AM CDT) Glucose, POC 292(H) 70 - 199 mg/dL Comment: For Glucose values <35 mg/dl when Hematocrit is >60 mg/dl,the test may not accurately detect significant hypoglycemia,and testing in the Laboratory should be considered if clinically indicated. Blood 09/03/2025 11:4 6 AM CDT 09/03/2025 11:46 AM CDT Tomi Horton MD LAB POCT ORDERABLES - DEVICE Fi nal Result Performing Organization Address [facility] Co de Phone Number [facility] [address] Department of Laboratories [place], [place] [id number] * eGFR (09/03/2025 8:36 AM CDT) Pathologist [facility] eGFR 68 >=60 mL/min/1. 73 m2 Comment: Interpretive Data Reference Interval Normal >/= 90 mL/min/1.73m2 Mildly decreased* 60 - 89 mL/min/1.73m2 Mildly to moderately decreased 45 - 59 mL/min/1.73m2 Moderately to severely decreased 30 - 44 mL/min/1.73m2 Severely decreased 15 - 29 mL/min/1.73m2 Kidney Failure < 15 mL/min/1.73m2 *Relative to young adult level Estimated glomerular filtration rate is determined by the 2020 CKD-EPI equation recommended by the National Kidney Foundation (A Unifying Approach to GFR Estimation: Recommendations of the NKF-ASK Task Force on Reassessing the Inclusion of Race in Diagnosing Kidney Disease, JASN 2020). The CKD-EPI equation should not be used for patients with unstable renal function and has not been validated in children and those over 70. Current interpretive data was last reviewed 2021. Blood 09/03/2025 8:36 AM CDT 09/03/2025 8:45 AM CDT us Julienne Amaya MD LAB BLOOD ORDERABLES Final Res ult [facility] [address] Department [place] [address] * (ABNORMAL) CBC without differential (09/03/2025 8:36 AM CDT) [facility] WBC 13.41(H) 3.80 - 9.90 K/cumm Hgb 9.7(L) 13.0 - 17.5 g/dL [facility] Hct 31.8(L) 38.9 - 50.3 % [facility] Plt 355 150 - 400 K/cumm [facility] MPV 10.1 9.1 - 12.3 fL [facility] RBC 3.62(L) 4.30 - 5.80 M/cumm [facility] MCV 87.8 81.3 - 96.4 fL [facility] MCH 26.8(L) 27.1 - 33.3 pg [facility] MCHC 30.5(L) 32.3 - 35.7 g/dL [facility] RDW CV 15.8(H) 11.1 - 14.9 % [facility] RDW SD 49.3(H) 35.7 - 48.1 fL [facility] NRBC abs 0.00 0.00 - 0.01 K/cumm [facility] Blood 09/03/2025 8:36 AM CDT 09/03/2025 8:45 AM CDT us Taisha De Santiago DO LAB BLOOD ORDERABLES Final R esult [facility] [address] Department [place] [address] * (ABNORMAL) Renal function panel (09/03/2025 8:36 AM CDT) Sodium 137 135 - 145 mmol/L Potassium, pl 4.0 3.3 - 4.9 mmol/L [facility] Chloride 95(L) 97 - 110 mmol/L [facility] CO2 29 22 - 32 mmol/L [facility] Anion gap 13 2 - 15 mmol/L [facility] BUN 27(H) 6 - 25 mg/dL [facility] Creatinine 1.15 0.80 - 1.30 mg/dL [facility] Glucose 389(H) 70 - 199 mg/dL [facility] Comment: Interpretive Data Fasting glucose >/= 126 mg/dl is diagnostic for diabetes. Fasting is defined as no caloric intake for at least 8 hours. Fasting glucose between 100 mg/dl to 125 mg/dl is diagnostic of prediabetes. In a patient with classic symptoms of hyperglycemia or hyperglycemic crisis, a random glucose >/= 200 mg/dl is diagnostic for diabetes. In the absence of unequivocal hyperglycemia, results should be confirmed by repeat testing. The classification and Diagnosis of Diabetes Diabetes Care 2021; 46: S19-S40. Current interpretive data was last revised 2022. Calcium 7.8(L) 8.5 - 10.3 mg/dL [facility] Phosphorus, pl 2.8 2.3 - 4.5 mg/dL [facility] Albumin 3.5 3.5 - 5.0 g/dL [facility] Blood 09/03/2025 8:36 AM CDT 09/03/2025 8:45 AM CDT Julienne Amaya MD LAB BLOOD ORDERABLES Final Res ult Performing Organization Address [facility] Co de Phone Number [facility] [address] Department [place] [address] * (ABNORMAL) POCT glucose (09/03/2025 7:25 AM CDT) Glucose, POC 310(H) 70 - 199 mg/dL Comment: For Glucose values <35 mg/dl when Hematocrit is >60 mg/dl,the test may not accurately detect significant hypoglycemia,and testing in the Laboratory should be considered if clinically indicated. Blood 09/03/2025 7:25 AM CDT 09/03/2025 7:25 AM CDT Tomi Horton MD LAB POCT ORDERABLES - DEVICE Fi nal Result Performing Organization Address [facility] Co de Phone Number [facility] [address] Department [place] [address] * (ABNORMAL) POCT glucose (09/02/2025 8:14 PM CDT) Glucose, POC 318(H) 70 - 199 mg/dL Comment: For Glucose values <35 mg/dl when Hematocrit is >60 mg/dl,the test may not accurately detect significant hypoglycemia,and testing in the Laboratory should be considered if clinically indicated. Blood 09/02/2025 8:14 PM CDT 09/02/2025 8:14 PM CDT Tomi Horton MD LAB POCT ORDERABLES - DEVICE Fi nal Result Performing Organization Address [facility] de Phone Number [facility] [address] [facility] [place] [address] * POCT glucose (09/02/2025 4:39 PM CDT) Glucose, POC 174 70 - 199 mg/dL Comment: For Glucose values <35 mg/dl when Hematocrit is >60 mg/dl,the test may not accurately detect significant hypoglycemia,and testing in the Laboratory should be considered if clinically indicated. Blood 09/02/2025 4:39 PM CDT 09/02/2025 4:39 PM CDT Tomi Horton MD LAB POCT ORDERABLES - DEVICE Fi nal Result Performing Organization Address [facility] de Phone Number [facility] [address] [facility] [place] [address] * (ABNORMAL) POCT glucose (09/02/2025 11:40 AM CDT) Glucose, POC 357(H) 70 - 199 mg/dL Comment: For Glucose values <35 mg/dl when Hematocrit is >60 mg/dl,the test may not accurately detect significant hypoglycemia,and testing in the Laboratory should be considered if clinically indicated. Blood 09/02/2025 11:4 0 AM CDT 09/02/2025 11:40 AM CDT Tomi Horton MD LAB POCT ORDERABLES - DEVICE Fi nal Result Performing Organization Address [facility] de Phone Number [facility] [address] [facility] [place] [address] * (ABNORMAL) POCT glucose (09/02/2025 6:45 AM CDT) Glucose, POC 373(H) 70 - 199 mg/dL Comment: For Glucose values <35 mg/dl when Hematocrit is >60 mg/dl,the test may not accurately detect significant hypoglycemia,and testing in the Laboratory should be considered if clinically indicated. Blood 09/02/2025 6:45 AM CDT 09/02/2025 6:45 AM CDT us Tomi Horton MD LAB POCT ORDERABLES - DEVICE Fi nal Result Performing Organization Address [facility] Co de Phone Number [facility] [address] [place] [address] * eGFR (09/02/2025 3:18 AM CDT) eGFR 61 >=60 mL/min/1. 73 m2 Comment: Interpretive Data Reference Interval Normal >/= 90 mL/min/1.73m2 Mildly decreased* 60 - 89 mL/min/1.73m2 Mildly to moderately decreased 45 - 59 mL/min/1.73m2 Moderately to severely decreased 30 - 44 mL/min/1.73m2 Severely decreased 15 - 29 mL/min/1.73m2 Kidney Failure < 15 mL/min/1.73m2 *Relative to young adult level Estimated glomerular filtration rate is determined by the 2020 CKD-EPI equation recommended by the National Kidney Foundation (A Unifying Approach to GFR Estimation: Recommendations of the NKF-ASK Task Force on Reassessing the Inclusion of Race in Diagnosing Kidney Disease, JASN 2020). The CKD-EPI equation should not be used for patients with unstable renal function and has not been validated in children and those over 70. Current interpretive data was last reviewed 2021. Blood 09/02/2025 3:18 AM CDT 09/02/2025 4:16 AM CDT us Julienne Amaya MD LAB BLOOD ORDERABLES Final Res ult Performing Organization Address [facility]/ZIP Co de Phone Number [facility] [address] [place] [address] * (ABNORMAL) CBC without differential (09/02/2025 3:18 AM CDT) WBC 11.84(H) 3.80 - 9.90 K/cumm Hgb 8.8(L) 13.0 - 17.5 g/dL [facility] Hct 30.2(L) 38.9 - 50.3 % [facility] Plt 338 150 - 400 K/cumm [facility] MPV 10.6 9.1 - 12.3 fL [facility] RBC 3.40(L) 4.30 - 5.80 M/cumm [facility] MCV 88.8 81.3 - 96.4 fL [facility] MCH 25.9(L) 27.1 - 33.3 pg [facility] MCHC 29.1(L) 32.3 - 35.7 g/dL [facility] RDW CV 15.6(H) 11.1 - 14.9 % [facility] RDW SD 49.4(H) 35.7 - 48.1 fL [facility] NRBC abs 0.03(H) 0.00 - 0.01 K/cumm [facility] Blood 09/02/2025 3:18 AM CDT 09/02/2025 4:17 AM CDT us Taisha De Santiago DO LAB BLOOD ORDERABLES Final R esult [facility] [address] Department [place] [address] * (ABNORMAL) Renal function panel (09/02/2025 3:18 AM CDT) Sodium 138 135 - 145 mmol/L Potassium, pl 4.1 3.3 - 4.9 mmol/L [facility] Chloride 97 97 - 110 mmol/L [facility] CO2 28 22 - 32 mmol/L [facility] Anion gap 13 2 - 15 mmol/L [facility] BUN 22 6 - 25 mg/dL [facility] Creatinine 1.27 0.80 - 1.30 mg/dL [facility] Glucose 513(C) 70 - 199 mg/dL [facility] Comment: Critical result called to and read back by Fan Venegas RN on 09/02/2025 @[id number] to [id number] Interpretive Data Fasting glucose >/= 126 mg/dl is diagnostic for diabetes. Fasting is defined as no caloric intake for at least 8 hours. Fasting glucose between 100 mg/dl to 125 mg/dl is diagnostic of prediabetes. In a patient with classic symptoms of hyperglycemia or hyperglycemic crisis, a random glucose >/= 200 mg/dl is diagnostic for diabetes. In the absence of unequivocal hyperglycemia, results should be confirmed by repeat testing. The classification and Diagnosis of Diabetes Diabetes Care 2021; 46: S19-S40. Current interpretive data was last revised 2022. Calcium 7.7(L) 8.5 - 10.3 mg/dL [facility] Phosphorus, pl 2.5 2.3 - 4.5 mg/dL [facility] Albumin 3.1(L) 3.5 - 5.0 g/dL [facility] Blood 09/02/2025 3:18 AM CDT 09/02/2025 4:16 AM CDT Julienne Amaya MD LAB BLOOD ORDERABLES Final Res ult Performing Organization Address City/[facility]/ZIP Co de Phone Number [facility] [address] [place] [address] * (ABNORMAL) POCT glucose (09/01/2025 7:47 PM CDT) [facility] Glucose, POC 355(H) 70 - 199 mg/dL Comment: For Glucose values <35 mg/dl when Hematocrit is >60 mg/dl,the test may not accurately detect significant hypoglycemia,and testing in the Laboratory should be considered if clinically indicated. Blood 09/01/2025 7:47 PM CDT 09/01/2025 7:47 PM CDT us Tomi Horton MD LAB POCT ORDERABLES - DEVICE Fi nal Result Performing Organization Address [facility]/ZIP Co de Phone Number [facility] [address] [place] [address] * (ABNORMAL) POCT glucose (09/01/2025 4:36 PM CDT) Glucose, POC 368(H) 70 - 199 mg/dL Comment: For Glucose values <35 mg/dl when Hematocrit is >60 mg/dl,the test may not accurately detect significant hypoglycemia,and testing in the Laboratory should be considered if clinically indicated. Blood 09/01/2025 4:36 PM CDT 09/01/2025 4:36 PM CDT Tomi Horton MD LAB POCT ORDERABLES - DEVICE Fi nal Result Performing Organization Address [facility] Co de Phone Number [facility] [address] [facility] [place] [address] * POCT glucose (09/01/2025 11:45 AM CDT) Glucose, POC 184 70 - 199 mg/dL Comment: For Glucose values <35 mg/dl when Hematocrit is >60 mg/dl,the test may not accurately detect significant hypoglycemia,and testing in the Laboratory should be considered if clinically indicated. Blood 09/01/2025 11:4 5 AM CDT 09/01/2025 11:45 AM CDT Tomi Horton MD LAB POCT ORDERABLES - DEVICE Fi nal Result Performing Organization Address [facility] Co de Phone Number [facility] [address] [place] [address] * TRANSTHORACIC ECHO (TTE) COMPLETE W DOPPLER/CF WO CONTRAST (09/01/2025 9:22 AM CDT) Pathologist [facility] Estimated EF 60-65 % CONS SCIMAGE EF Mod BP 60 % CONS SCIMAGE Anatomical Region Laterality Modality Ultrasound 09/01/2025 7:21 AM CDT Narrative 09/01/2025 10:22 AM CDT [facility] [address] 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 INDICATIONS: Atrial fibrillation. MEASUREMENTS: 2D/MM Value Range Doppler Value Range IVSd 2D 0.90 cm [ 0.60 - 1.00 ] AV Peak Dom 1.73 m/s [ 1.00 - 1.70 ] LVIDd 2D 6.02 cm [ 4.20 - 5.80 ] AV Peak PG 12.0 mmHg LVIDs 2D 4.41 cm [ 2.50 - 4.00 ] AV Mean PG 5.9 mmHg LVPWd 2D 1.19 cm [ 0.60 - 1.00 ] AV VTI 32.8 cm EF Mod BP 60 % [ 52 - 72 ] KAT V max 2.3 cm2 Estimated EF 60-65 % KAT VTI 2.4 cm2 LA Dimension 2D 4.31 cm [ 3.00 - 4.00 ] LVOT Peak Dom 1.07 m/s [ 0.70 - 1.10 ] AoR Diam 2D 3.62 cm [ 3.10 - 3.70 ] LVOT Diam 2.2 cm AoR Diam 2D Index 1.55 LVOT Peak PG 4.6 mmHg RA Volume 27.10 ml LVOT VTI 20.9 cm TAPSE 2.18 cm [ 1.71 - 5.00 ] MV Peak PG 5.6 mmHg MV Mean PG 2.1 mmHg MV E Peak Dom 1.1 m/s [ 0.6 - 1.3 ] MV A Peak Dom 0.3 m/s [ 1.0 - 1.2 ] MV PHT 85.0 ms [ 20.0 - 100.0 ] MV Decel Time 178.0 ms [ 104.0 - 258.0 ] MVA PHT 2.6 ms MV E/A Ratio 3.7 TR Peak Dom 2.8 m/s [ 1.0 - 2.8 ] TR Peak PG 45 mmHg RVSP 48.4 mmHg [ 10.0 - 36.0 ] RA Pressure 3.0 mmHg PV Peak Dom 1.0 m/s [ 0.4 - 0.8 ] PV Peak PG 3.6 mmHg Lat E` Dom 0.10 m/s [ 0.10 - 0.15 ] Septal E` 0.05 m/s [ 0.08 - 0.15 ] E/E` 11.00 RV S` 0.13 m/s 2D/MM Value Range Doppler Value Range - FINDINGS: Study Quality: The study was technically adequate. BP: Blood pressure: 152/87 mmHg. Left Ventricle: Normal global and regional left ventricular systolic function. Ejection Fraction is estimated at 60-65 %. Mild enlargement of left ventricle. LV wall thickness is within normal limits. Right Ventricle: Normal right ventricular systolic function. Normal right ventricular size. Left Atrium: The left atrium is normal in size. Right Atrium: The right atrium is normal in size. Atrial Septum: Normal appearing atrial septum. Mitral Valve: Normal appearance of the mitral valve leaflets. Mild mitral valve regurgitation. Aortic Valve: Normal aortic valve appearance and function. Tricuspid Valve: Normal appearance of the tricuspid leaflets. Mild tricuspid regurgitation. There is mild pulmonary hypertension. Pulmonic Valve: Grossly normal appearing pulmonic valve. Pericardium: Normal appearing pericardial thickness. No significant pericardial effusion. Aortic Root and Aorta: Normal caliber aortic root. Aortic Arch: Normal caliber aortic arch. IVC: Normal appearance of the inferior vena cava. CONCLUSIONS: 1. Normal global and regional left ventricular systolic function. Ejection Fraction is estimated at 60-65 %. Mild enlargement of left ventricle. LV wall thickness is within normal limits. 2. Normal appearance of the mitral valve leaflets. Mild mitral valve regurgitation. 3. Normal appearance of the tricuspid leaflets. Mild tricuspid regurgitation. There is mild pulmonary hypertension. 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 INDICATIONS: Atrial fibrillation. MEASUREMENTS: 2D/MM Value Range Doppler ValueRange IVSd 2D 0.90 cm [ 0.60 - 1.00 ] AV Peak Dom 1.73m/s [ 1.00 - 1.70 ] LVIDd 2D 6.02 cm [ 4.20 - 5.80 ] AV Peak PG 12.0mmHg LVIDs 2D 4.41 cm [ 2.50 - 4.00 ] AV Mean PG 5.9mmHg LVPWd 2D 1.19 cm [ 0.60 - 1.00 ] AV VTI 32.8cm EF Mod BP 60 % [ 52 - 72 ] KAT V max 2.3cm2 Estimated EF 60-65 % KAT VTI 2.4cm2 LA Dimension 2D 4.31 cm [ 3.00 - 4.00 ] LVOT Peak Dom 1.07m/s [ 0.70 - 1.10 ] AoR Diam 2D 3.62 cm [ 3.10 - 3.70 ] LVOT Diam 2.2cm AoR Diam 2D Index 1.55 LVOT Peak PG 4.6mmHg RA Volume 27.10 ml LVOT VTI 20.9cm TAPSE 2.18 cm [ 1.71 - 5.00 ] MV Peak PG 5.6mmHg MV Mean PG 2.1 mmHg MV E Peak Dom 1.1 m/s [ 0.6 - 1.3 ] MV A Peak Dom 0.3 m/s [ 1.0 - 1.2 ] MV PHT 85.0 ms [ 20.0 - 100.0 ] MV Decel Time 178.0 ms [ 104.0 - 258.0 ] MVA PHT 2.6 ms MV E/A Ratio 3.7 TR Peak Dom 2.8 m/s [ 1.0 - 2.8 ] TR Peak PG 45 mmHg RVSP 48.4 mmHg [ 10.0 - 36.0 ] RA Pressure 3.0 mmHg PV Peak Dom 1.0 m/s [ 0.4 - 0.8 ] PV Peak PG 3.6 mmHg Lat E` Dom 0.10 m/s [ 0.10 - 0.15 ] Septal E` 0.05 m/s [ 0.08 - 0.15 ] E/E` 11.00 RV S` 0.13 m/s 2D/MM Value Range Doppler ValueRange - FINDINGS: Study Quality: The study was technically adequate. BP: Blood pressure: 152/87 mmHg. Left Ventricle: Normal global and regional left ventricular systolicfunction. Ejection Fraction is estimated at 60-65 %. Mild enlargement of left ventricle. LVwall thickness is within normal limits. Right Ventricle: Normal right ventricular systolic function. Normal rightventricular size. Left Atrium: The left atrium is normal in size. Right Atrium: The right atrium is normal in size. Atrial Septum: Normal appearing atrial septum. Mitral Valve: Normal appearance of the mitral valve leaflets. Mild mitralvalve regurgitation. Aortic Valve: Normal aortic valve appearance and function. Tricuspid Valve: Normal appearance of the tricuspid leaflets. Mildtricuspid regurgitation. There is mild pulmonary hypertension. Pulmonic Valve: Grossly normal appearing pulmonic valve. Pericardium: Normal appearing pericardial thickness. No significantpericardial effusion. Aortic Root and Aorta: Normal caliber aortic root. Aortic Arch: Normal caliber aortic arch. IVC: Normal appearance of the inferior vena cava. CONCLUSIONS: 1. Normal global and regional left ventricular systolic function. EjectionFraction is estimated at 60-65 %. Mild enlargement of left ventricle. LV wallthickness is within normal limits. 2. Normal appearance of the mitral valve leaflets. Mild mitral valveregurgitation. 3. Normal appearance of the tricuspid leaflets. Mild tricuspidregurgitation. There is mild pulmonary hypertension. Electronically Signed By: Johnny Philip MD 09/01/2025 10:22:18 AM CDT Tomi Horton MD CV ECHO PROCEDURES Final Result * POCT glucose (09/01/2025 7:21 AM CDT) Glucose, POC 169 70 - 199 mg/dL Comment: For Glucose values <35 mg/dl when Hematocrit is >60 mg/dl,the test may not accurately detect significant hypoglycemia,and testing in the Laboratory should be considered if clinically indicated. Blood 09/01/2025 7:21 AM CDT 09/01/2025 7:21 AM CDT Tomi Horton MD LAB POCT ORDERABLES - DEVICE Fi nal Result [facility] [address] Department [place] [address] * eGFR (09/01/2025 5:29 AM CDT) eGFR 78 >=60 mL/min/1. 73 m2 Comment: Interpretive Data Reference Interval Normal >/= 90 mL/min/1.73m2 Mildly decreased* 60 - 89 mL/min/1.73m2 Mildly to moderately decreased 45 - 59 mL/min/1.73m2 Moderately to severely decreased 30 - 44 mL/min/1.73m2 Severely decreased 15 - 29 mL/min/1.73m2 Kidney Failure < 15 mL/min/1.73m2 *Relative to young adult level Estimated glomerular filtration rate is determined by the 2020 CKD-EPI equation recommended by the National Kidney Foundation (A Unifying Approach to GFR Estimation: Recommendations of the NKF-ASK Task Force on Reassessing the Inclusion of Race in Diagnosing Kidney Disease, JASN 202). The CKD-EPI equation should not be used for patients with unstable renal function and has not been validated in children and those over 70. Current interpretive data was last reviewed 2021. Blood 09/01/2025 5:29 AM CDT 09/01/2025 6:23 AM CDT us Julienne Amaya MD LAB BLOOD ORDERABLES Final Res ult [facility] [address] Department [place] [address] * (ABNORMAL) Pro B-type natriuretic peptide (09/01/2025 5:29 AM CDT) NT-proBNP 4,105(H) <=300 pg/mL Comment: Interpretive Comments: A. Dyspnea in Acute Care Setting All Ages: < 300 pg/ml, acute heart failure unlikely. < 50 yrs: 300 - 450 pg/ml, further investigation warranted. > 450 pg/ml, acute heart failure likely. 50 - 74 yrs: 300 - 900 pg/ml, further investigation warranted. > 900 pg/ml, acute heart failure likely . > or = 75 yrs: 450 - 1800 pg/ml, further investigation warranted. > 1800 pg/ml, acute heart failure likely. B. Non-acute Setting < 75 yrs < 125 pg/ml, rules out heart failure. > or = 125 pg/ml, further investigation warranted. > or = 75 yrs < 450 pg/ml, rules out heart failure. > or = 450 pg/ml, further investigation warranted. - Knowledge of each individual patient's NT-proBNP range may be more useful than using similar cut-points for every patient. Please note that marked elevations in NT-proBNP levels may be observed in state other than Left Ventricular Congestive Failure, including: acute coronary syndromes, right heart strain/failure (including pulmonary embolism and cor pulmonale), critical illness, renal failure, as well as advanced age. - References: 1. Serenity SENIOR et.al. Eur Heart J. 2006:27:330-337. 2. Rock RW, Martha MANE. J. AM Samir Cardiol: Cardiovasc Imag. 2009;2: 216- 225. Interpretive Data Last Revised Date: 2018. Blood 09/01/2025 5:29 AM CDT 09/01/2025 6:23 AM CDT us Ev Payne [employer] LAB BLOOD ORDERABLES Final Re sult [facility] [address] Department [place] [address] * (ABNORMAL) CBC without differential (09/01/2025 5:29 AM CDT) WBC 16.60(H) 3.80 - 9.90 K/cumm Hgb 10.5(L) 13.0 - 17.5 g/dL [facility] Hct 33.3(L) 38.9 - 50.3 % [facility] Plt 429(H) 150 - 400 K/cumm [facility] MPV 10.1 9.1 - 12.3 fL [facility] RBC 3.87(L) 4.30 - 5.80 M/cumm [facility] MCV 86.0 81.3 - 96.4 fL [facility] MCH 27.1 27.1 - 33.3 pg [facility] MCHC 31.5(L) 32.3 - 35.7 g/dL [facility] RDW CV 15.6(H) 11.1 - 14.9 % [facility] RDW SD 48.0 35.7 - 48.1 fL [facility] NRBC abs 0.14(H) 0.00 - 0.01 K/cumm [facility] Blood 09/01/2025 5:29 AM CDT 09/01/2025 6:23 AM CDT Taisha De Santiago DO LAB BLOOD ORDERABLES Final R esult Performing Organization Address [facility]/ZIP Co de Phone Number [facility] [address] Department [place] [address] * (ABNORMAL) Renal function panel (09/01/2025 5:29 AM CDT) Sodium 141 135 - 145 mmol/L Potassium, pl 3.2(L) 3.3 - 4.9 mmol/L [facility] Chloride 97 97 - 110 mmol/L [facility] CO2 31 22 - 32 mmol/L [facility] Anion gap 13 2 - 15 mmol/L [facility] BUN 17 6 - 25 mg/dL [facility] Creatinine 1.03 0.80 - 1.30 mg/dL [facility] Glucose 161 70 - 199 mg/dL [facility] Comment: Interpretive Data Fasting glucose >/= 126 mg/dl is diagnostic for diabetes. Fasting is defined as no caloric intake for at least 8 hours. Fasting glucose between 100 mg/dl to 125 mg/dl is diagnostic of prediabetes. In a patient with classic symptoms of hyperglycemia or hyperglycemic crisis, a random glucose >/= 200 mg/dl is diagnostic for diabetes. In the absence of unequivocal hyperglycemia, results should be confirmed by repeat testing. The classification and Diagnosis of Diabetes Diabetes Care 202; 46: S19-S40. Current interpretive data was last revised 2022. Calcium 8.2(L) 8.5 - 10.3 mg/dL [facility] Phosphorus, pl 2.2(L) 2.3 - 4.5 mg/dL [facility] Albumin 3.8 3.5 - 5.0 g/dL [facility] Blood 09/01/2025 5:29 AM CDT 09/01/2025 6:23 AM CDT us Julienne Amaya MD LAB BLOOD ORDERABLES Final Res ult Performing Organization Address [facility]/ZIP Co de Phone Number [facility] [address] Department [email or web address] [address] * (ABNORMAL) POCT glucose (08/31/2025 8:49 PM CDT) Glucose, POC 224(H) 70 - 199 mg/dL Comment: For Glucose values <35 mg/dl when Hematocrit is >60 mg/dl,the test may not accurately detect significant hypoglycemia,and testing in the Laboratory should be considered if clinically indicated. Blood 08/31/2025 8:49 PM CDT 08/31/2025 8:49 PM CDT Tomi Horton MD LAB POCT ORDERABLES - DEVICE Fi nal Result Performing Organization Address [facility] Co de Phone Number [facility] [address] [facility] [employer] [place], [place] [id number] * (ABNORMAL) POCT glucose (08/31/2025 5:02 PM CDT) Glucose, POC 362(H) 70 - 199 mg/dL Comment: For Glucose values <35 mg/dl when Hematocrit is >60 mg/dl,the test may not accurately detect significant hypoglycemia,and testing in the Laboratory should be considered if clinically indicated. Blood 08/31/2025 5:02 PM CDT 08/31/2025 5:02 PM CDT Tomi Horton MD LAB POCT ORDERABLES - DEVICE Fi nal Result Performing Organization Address [facility] Co de Phone Number [facility] [address] [facility] [place] [place] [address] * (ABNORMAL) POCT glucose (08/31/2025 3:44 PM CDT) Glucose, POC 279(H) 70 - 199 mg/dL Comment: For Glucose values <35 mg/dl when Hematocrit is >60 mg/dl,the test may not accurately detect significant hypoglycemia,and testing in the Laboratory should be considered if clinically indicated. Glucose comment 1 RN/MD Notified [facility] Blood 08/31/2025 3:44 PM CDT 08/31/2025 3:44 PM CDT Tomi Horton MD LAB POCT ORDERABLES - DEVICE Fi nal Result Performing Organization Address [facility] Co de Phone Number [facility] [address] [facility] [employer] [place], [place] [id number] * (ABNORMAL) POCT glucose (08/31/2025 12:13 PM CDT) Glucose, POC 226(H) 70 - 199 mg/dL Comment: For Glucose values <35 mg/dl when Hematocrit is >60 mg/dl,the test may not accurately detect significant hypoglycemia,and testing in the Laboratory should be considered if clinically indicated. Blood 08/31/2025 12:1 3 PM CDT 08/31/2025 12:13 PM CDT Tomi Horton MD LAB POCT ORDERABLES - DEVICE Fi nal Result Performing Organization Address [facility] de Phone Number [facility] [address] [facility] [place] [place] [address] * POCT glucose (08/31/2025 8:07 AM CDT) Glucose, POC 167 70 - 199 mg/dL Comment: For Glucose values <35 mg/dl when Hematocrit is >60 mg/dl,the test may not accurately detect significant hypoglycemia,and testing in the Laboratory should be considered if clinically indicated. Blood 08/31/2025 8:07 AM CDT 08/31/2025 8:07 AM CDT Tomi Horton MD LAB POCT ORDERABLES - DEVICE Fi nal Result Performing Organization Address [facility] Co de Phone Number [facility] [address] [facility] [employer] [place], [place] [id number] * eGFR (08/31/2025 4:59 AM CDT) eGFR 74 >=60 mL/min/1. 73 m2 Comment: Interpretive Data Reference Interval Normal >/= 90 mL/min/1.73m2 Mildly decreased* 60 - 89 mL/min/1.73m2 Mildly to moderately decreased 45 - 59 mL/min/1.73m2 Moderately to severely decreased 30 - 44 mL/min/1.73m2 Severely decreased 15 - 29 mL/min/1.73m2 Kidney Failure < 15 mL/min/1.73m2 *Relative to young adult level Estimated glomerular filtration rate is determined by the 2020 CKD-EPI equation recommended by the National Kidney Foundation (A Unifying Approach to GFR Estimation: Recommendations of the NKF-ASK Task Force on Reassessing the Inclusion of Race in Diagnosing Kidney Disease, JASN 2020). The CKD-EPI equation should not be used for patients with unstable renal function and has not been validated in children and those over 70. Current interpretive data was last reviewed 2021. Blood 08/31/2025 4:59 AM CDT 08/31/2025 5:59 AM CDT us Julienne Amaya MD LAB BLOOD ORDERABLES Final Res ult [facility] [address] Department [place] [address] * (ABNORMAL) CBC without differential (08/31/2025 4:59 AM CDT) WBC 11.34(H) 3.80 - 9.90 K/cumm Hgb 8.5(L) 13.0 - 17.5 g/dL [facility] Hct 27.1(L) 38.9 - 50.3 % [facility] Plt 300 150 - 400 K/cumm [facility] MPV 10.2 9.1 - 12.3 fL [facility] RBC 3.14(L) 4.30 - 5.80 M/cumm [facility] MCV 86.3 81.3 - 96.4 fL [facility] MCH 27.1 27.1 - 33.3 pg [facility] MCHC 31.4(L) 32.3 - 35.7 g/dL [facility] RDW CV 15.5(H) 11.1 - 14.9 % [facility] RDW SD 48.3(H) 35.7 - 48.1 fL [facility] NRBC abs 0.00 0.00 - 0.01 K/cumm [facility] Blood 08/31/2025 4:59 AM CDT 08/31/2025 6:00 AM CDT Taisha De Santiago DO LAB BLOOD ORDERABLES Final R esult [facility] [address] Department [place] [address] * (ABNORMAL) Renal function panel (08/31/2025 4:59 AM CDT) Sodium 142 135 - 145 mmol/L Potassium, pl 3.1(L) 3.3 - 4.9 mmol/L [facility] Chloride 102 97 - 110 mmol/L [facility] CO2 33(H) 22 - 32 mmol/L [facility] Anion gap 7 2 - 15 mmol/L [facility] BUN 19 6 - 25 mg/dL [facility] Creatinine 1.08 0.80 - 1.30 mg/dL [facility] Glucose 154 70 - 199 mg/dL [facility] Comment: Interpretive Data Fasting glucose >/= 126 mg/dl is diagnostic for diabetes. Fasting is defined as no caloric intake for at least 8 hours. Fasting glucose between 100 mg/dl to 125 mg/dl is diagnostic of prediabetes. In a patient with classic symptoms of hyperglycemia or hyperglycemic crisis, a random glucose >/= 200 mg/dl is diagnostic for diabetes. In the absence of unequivocal hyperglycemia, results should be confirmed by repeat testing. The classification and Diagnosis of Diabetes Diabetes Care 202; 46: S19-S40. Current interpretive data was last revised 2022. Calcium 7.6(L) 8.5 - 10.3 mg/dL [facility] Phosphorus, pl 2.3 2.3 - 4.5 mg/dL [facility] Albumin 3.1(L) 3.5 - 5.0 g/dL [facility] Blood 08/31/2025 4:59 AM CDT 08/31/2025 5:59 AM CDT Julienne Amaya MD LAB BLOOD ORDERABLES Final Res ult Performing Organization Address [facility] Co de Phone Number [facility] [address] [place] [address] * POCT glucose (08/31/2025 2:33 AM CDT) Glucose, POC 150 70 - 199 mg/dL Comment: For Glucose values <35 mg/dl when Hematocrit is >60 mg/dl,the test may not accurately detect significant hypoglycemia,and testing in the Laboratory should be considered if clinically indicated. Blood 08/31/2025 2:33 AM CDT 08/31/2025 2:33 AM CDT Tomi Horton MD LAB POCT ORDERABLES - DEVICE Fi nal Result Performing Organization Address [facility] Co de Phone Number [facility] [address] [facility] [place] [place] [address] * (ABNORMAL) POCT glucose (08/30/2025 8:43 PM CDT) Glucose, POC 330(H) 70 - 199 mg/dL Comment: For Glucose values <35 mg/dl when Hematocrit is >60 mg/dl,the test may not accurately detect significant hypoglycemia,and testing in the Laboratory should be considered if clinically indicated. Blood 08/30/2025 8:43 PM CDT 08/30/2025 8:43 PM CDT Tomi Horton MD LAB POCT ORDERABLES - DEVICE Fi nal Result Performing Organization Address [facility] Co de Phone Number [facility] [address] [facility] [place] [address] * (ABNORMAL) POCT glucose (08/30/2025 6:12 PM CDT) Glucose, POC 309(H) 70 - 199 mg/dL Comment: For Glucose values <35 mg/dl when Hematocrit is >60 mg/dl,the test may not accurately detect significant hypoglycemia,and testing in the Laboratory should be considered if clinically indicated. Blood 08/30/2025 6:12 PM CDT 08/30/2025 6:12 PM CDT us Tomi Horton MD LAB POCT ORDERABLES - DEVICE Fi nal Result [facility] [address] Department [place] [address] * MRI Abdomen Liver W WO Contrast (08/30/2025 5:59 PM CDT) Anatomical Region Laterality Modality Body N/A Magnetic Resonan ce 08/31/2025 8:49 AM CDT Impressions 08/31/2025 11:30 AM CDT 1. Numerous bilateral hepatic metastases. 2. Diffuse osseous metastases. Dictated by: Daly Burnett MD, MPHS The radiology attending physician has personally reviewed this study, and had reviewed and/or edited this written report and agrees with it. Electronically signed by: Yo Zhong M.D. Narrative 08/31/2025 11:30 AM CDT EXAMINATION: MAGNETIC RESONANCE IMAGING OF THE ABDOMEN WITH AND WITHOUT CONTRAST HISTORY: 69-year-old male with newly diagnosed prostate neuroendocrine carcinoma, high-grade. Concern for hepatic metastasis. TECHNIQUE: Magnetic resonance imaging of the abdomen was performed prior to and following the administration of intravenous contrast. Protocol: Liver Contrast: Eovist (gadoxetate) 10 mL COMPARISON: CT 08/26/2025, 08/06/2025, 08/01/2024. FINDINGS: Liver: No fat or iron deposition. Normal morphology. - Bile ducts: No intra or extrahepatic bile duct dilation. - Focal liver lesions: There are diffuse bilateral hepatic targetoid lesions with hepatobiliary phase hypointensity, numbering greater than at least 20 in total, compatible with metastases. [employer] lesions include: -4.9 cm lesion in segment 5 (series 45/59). -2.5 cm lesion in series 3 (series 45/32). - Vasculature: Patent hepatic and portal veins. Replaced right hepatic artery arising from the SMA. Gallbladder: Cholecystectomy. Pancreas: No masses or ductal dilation. Normal T1 signal intensity. 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 Spleen: Normal size. Adrenals: Nodular enlargement of the left greater than right adrenal glands. Adrenal SI in-phase: 139. Adrenal SI iza-kb-fowfu: 136. Spleen SI in-phase: 132. Spleen SI tql-pn-jahif: 132. Adrenal to spleen CSI ratio: 0.95 (< 0.71 suggests lipid-rich adenoma). Adrenal SII: 0 (>16.5% suggests lipid-rich adenoma). 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 Kidneys: Interval placement of bilateral nephrostomy tubes with resolution of hydronephrosis. Small amount of blood products in the right collecting system. No masses. Scattered simple and hemorrhagic/proteinaceous cysts bilaterally. Other Findings: Normal lung bases. Normal heart size. No pericardial fluid. No mesenteric masses or fluid collections. Scattered subcentimeter retroperitoneal lymph nodes are technically indeterminate (series 33/70, for example). Normal caliber abdominal aorta. The mesenteric veins are patent. No bowel wall thickening or obstruction. No abdominal wall fluid collections or masses. There are numerous diffusion restricting throughout the imaged spine, ribs, and pelvic bones, suspicious for osseous metastases (series 41/6, 14, 25 and 47, for example). Procedure Note Yo Zhong MD - 08/31/2025 EXAMINATION: MAGNETIC RESONANCE IMAGING OF THE ABDOMEN WITH AND WITHOUT CONTRAST HISTORY: 69-year-old male with newly diagnosed prostate neuroendocrine carcinoma, high-grade. Concern for hepatic metastasis. TECHNIQUE: Magnetic resonance imaging of the abdomen was performed prior to and following the administration of intravenous contrast. Protocol: Liver Contrast: Eovist (gadoxetate) 10 mL COMPARISON: CT 08/26/2025, 08/06/2025, 08/01/2024. FINDINGS: Liver: No fat or iron deposition. Normal morphology. - Bile ducts: No intra or extrahepatic bile duct dilation. - Focal liver lesions: There are diffuse bilateral hepatic targetoid lesions with hepatobiliary phase hypointensity, numbering greater than at least 20 in total, compatible with metastases. [employer]ocket [employer] lesions include: -4.9 cm lesion in segment 5 (series 45/59). -2.5 cm lesion in series 3 (series 45/32). - Vasculature: Patent hepatic and portal veins. Replaced right hepatic artery arising from the SMA. Gallbladder: Cholecystectomy. Pancreas: No masses or ductal dilation. Normal T1 signal intensity. 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 Spleen: Normal size. Adrenals: Nodular enlargement of the left greater than right adrenal glands. Adrenal SI in-phase: 139. Adrenal SI tpm-al-rawyq: 136. Spleen SI in-phase: 132. Spleen SI nbb-ht-hrwtr: 132. Adrenal to spleen CSI ratio: 0.95 (< 0.71 suggests lipid-rich adenoma). Adrenal SII: 0 (>16.5% suggests lipid-rich adenoma). 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 Kidneys: Interval placement of bilateral nephrostomy tubes with resolution of hydronephrosis. Small amount of blood products in the right collecting system. No masses. Scattered simple and hemorrhagic/proteinaceous cysts bilaterally. Other Findings: Normal lung bases. Normal heart size. No pericardial fluid. No mesenteric masses or fluid collections. Scattered subcentimeter retroperitoneal lymph nodes are technically indeterminate (series 33/70, for example). Normal caliber abdominal aorta. The mesenteric veins are patent. No bowel wall thickening or obstruction. No abdominal wall fluid collections or masses. There are numerous diffusion restricting throughout the imaged spine, ribs, and pelvic bones, suspicious for osseous metastases (series 41/6, 14, 25 and 47, for example). IMPRESSION: 1. Numerous bilateral hepatic metastases. 2. Diffuse osseous metastases. Dictated by: Daly Burnett MD, MPHS The radiology attending physician has personally reviewed this study, and had reviewed and/or edited this written report and agrees with it. Electronically signed by: Yo Zhong M.D. us Ryder De Leon MD IM MRI PROCEDURES Final Result * POCT glucose (08/30/2025 12:05 PM CDT) Glucose, POC 180 70 - 199 mg/dL Comment: For Glucose values <35 mg/dl when Hematocrit is >60 mg/dl,the test may not accurately detect significant hypoglycemia,and testing in the Laboratory should be considered if clinically indicated. Blood 08/30/2025 12:0 5 PM CDT 08/30/2025 12:05 PM CDT Tomi Horton MD LAB POCT ORDERABLES - DEVICE Fi nal Result Performing Organization Address [facility] de Phone Number [facility] [address] Department of [employer] [place], [place] [id number] * POCT glucose (08/30/2025 8:12 AM CDT) [facility] Glucose, POC 181 70 - 199 mg/dL Comment: For Glucose values <35 mg/dl when Hematocrit is >60 mg/dl,the test may not accurately detect significant hypoglycemia,and testing in the Laboratory should be considered if clinically indicated. Blood 08/30/2025 8:12 AM CDT 08/30/2025 8:12 AM CDT us Tomi Horton MD LAB POCT ORDERABLES - DEVICE Fi nal Result Performing Organization Address [facility] de Phone Number [facility] [address] Department [place] [address] * eGFR (08/30/2025 5:02 AM CDT) Pathologist [facility] eGFR 76 >=60 mL/min/1. 73 m2 Comment: Interpretive Data Reference Interval Normal >/= 90 mL/min/1.73m2 Mildly decreased* 60 - 89 mL/min/1.73m2 Mildly to moderately decreased 45 - 59 mL/min/1.73m2 Moderately to severely decreased 30 - 44 mL/min/1.73m2 Severely decreased 15 - 29 mL/min/1.73m2 Kidney Failure < 15 mL/min/1.73m2 *Relative to young adult level Estimated glomerular filtration rate is determined by the 2020 CKD-EPI equation recommended by the National Kidney Foundation (A Unifying Approach to GFR Estimation: Recommendations of the NKF-ASK Task Force on Reassessing the Inclusion of Race in Diagnosing Kidney Disease, JASN 2020). The CKD-EPI equation should not be used for patients with unstable renal function and has not been validated in children and those over 70. Current interpretive data was last reviewed 2021. Blood 08/30/2025 5:02 AM CDT 08/30/2025 5:53 AM CDT us Julienne Amaya MD LAB BLOOD ORDERABLES Final Res ult [facility] [address] Department [place] [address] * (ABNORMAL) CBC without differential (08/30/2025 5:02 AM CDT) WBC 11.72(H) 3.80 - 9.90 K/cumm Hgb 8.3(L) 13.0 - 17.5 g/dL [facility] Hct 27.0(L) 38.9 - 50.3 % [facility] Plt 296 150 - 400 K/cumm [facility] MPV 10.0 9.1 - 12.3 fL [facility] RBC 3.12(L) 4.30 - 5.80 M/cumm [facility] MCV 86.5 81.3 - 96.4 fL [facility] MCH 26.6(L) 27.1 - 33.3 pg [facility] MCHC 30.7(L) 32.3 - 35.7 g/dL [facility] RDW CV 15.7(H) 11.1 - 14.9 % [facility] RDW SD 48.7(H) 35.7 - 48.1 fL [facility] NRBC abs 0.03(H) 0.00 - 0.01 K/cumm [facility] Blood 08/30/2025 5:02 AM CDT 08/30/2025 5:52 AM CDT us Taisha De Santiago LAB BLOOD ORDERABLES Final R esult Performing Organization Address [facility]/ZIP Co de Phone Number [facility] [address] [place] [address] * (ABNORMAL) Renal function panel (08/30/2025 5:02 AM CDT) Sodium 143 135 - 145 mmol/L Potassium, pl 3.9 3.3 - 4.9 mmol/L [facility] Chloride 105 97 - 110 mmol/L [facility] CO2 28 22 - 32 mmol/L [facility] Anion gap 10 2 - 15 mmol/L [facility] BUN 19 6 - 25 mg/dL [facility] Creatinine 1.05 0.80 - 1.30 mg/dL [facility] Glucose 172 70 - 199 mg/dL [facility] Comment: Interpretive Data Fasting glucose >/= 126 mg/dl is diagnostic for diabetes. Fasting is defined as no caloric intake for at least 8 hours. Fasting glucose between 100 mg/dl to 125 mg/dl is diagnostic of prediabetes. In a patient with classic symptoms of hyperglycemia or hyperglycemic crisis, a random glucose >/= 200 mg/dl is diagnostic for diabetes. In the absence of unequivocal hyperglycemia, results should be confirmed by repeat testing. The classification and Diagnosis of Diabetes Diabetes Care 202; 46: S19-S40. Current interpretive data was last revised 2022. Calcium 7.9(L) 8.5 - 10.3 mg/dL [facility] Phosphorus, pl 2.2(L) 2.3 - 4.5 mg/dL [facility] Albumin 3.0(L) 3.5 - 5.0 g/dL [facility] Blood 08/30/2025 5:02 AM CDT 08/30/2025 5:53 AM CDT Julienne Amaya MD LAB BLOOD ORDERABLES Final Res ult Performing Organization Address City/[facility]/ZIP Co de Phone Number [facility] [address] [place] [address] * (ABNORMAL) POCT glucose (08/29/2025 11:21 PM CDT) Glucose, POC 212(H) 70 - 199 mg/dL Comment: For Glucose values <35 mg/dl when Hematocrit is >60 mg/dl,the test may not accurately detect significant hypoglycemia,and testing in the Laboratory should be considered if clinically indicated. Blood 08/29/2025 11:2 1 PM CDT 08/29/2025 11:21 PM CDT Julienne Amaya MD LAB POCT ORDERABLES - DEVICE F inal Result Performing Organization Address [facility]/[place] Co de Phone Number [facility] [address] [facility] [email or web address] [address] * (ABNORMAL) POCT glucose (08/29/2025 8:32 PM CDT) Glucose, POC 271(H) 70 - 199 mg/dL Comment: For Glucose values <35 mg/dl when Hematocrit is >60 mg/dl,the test may not accurately detect significant hypoglycemia,and testing in the Laboratory should be considered if clinically indicated. Blood 08/29/2025 8:32 PM CDT 08/29/2025 8:32 PM CDT Julienne Amaya MD LAB POCT ORDERABLES - DEVICE F inal Result Performing Organization Address [facility] de Phone Number [facility] [address] [facility] [place] [address] * (ABNORMAL) POCT glucose (08/29/2025 4:06 PM CDT) Glucose, POC 339(H) 70 - 199 mg/dL Comment: For Glucose values <35 mg/dl when Hematocrit is >60 mg/dl,the test may not accurately detect significant hypoglycemia,and testing in the Laboratory should be considered if clinically indicated. Blood 08/29/2025 4:06 PM CDT 08/29/2025 4:06 PM CDT Julienne Amaya MD LAB POCT ORDERABLES - DEVICE F inal Result Performing Organization Address [facility] Co de Phone Number [facility] [address] Department [employer] [place], [place] [id number] * (ABNORMAL) POCT glucose (08/29/2025 12:43 PM CDT) Glucose, POC 333(H) 70 - 199 mg/dL Comment: For Glucose values <35 mg/dl when Hematocrit is >60 mg/dl,the test may not accurately detect significant hypoglycemia,and testing in the Laboratory should be considered if clinically indicated. Blood 08/29/2025 12:4 3 PM CDT 08/29/2025 12:43 PM CDT Julienne Amaya MD LAB POCT ORDERABLES - DEVICE F inal Result Performing Organization Address [facility] de Phone Number [facility] [address] Department [employer] [place], [place] [id number] * (ABNORMAL) POCT glucose (08/29/2025 7:46 AM CDT) Glucose, POC 228(H) 70 - 199 mg/dL Comment: For Glucose values <35 mg/dl when Hematocrit is >60 mg/dl,the test may not accurately detect significant hypoglycemia,and testing in the Laboratory should be considered if clinically indicated. Blood 08/29/2025 7:46 AM CDT 08/29/2025 7:46 AM CDT Julienne Amaya MD LAB POCT ORDERABLES - DEVICE F inal Result Performing Organization Address [facility] Co de Phone Number [facility] [address] [facility] [email or web address] [place], [place] [id number] * (ABNORMAL) eGFR (08/29/2025 3:21 AM CDT) eGFR 58(L) >=60 mL/min/1. 73 m2 Comment: Interpretive Data Reference Interval Normal >/= 90 mL/min/1.73m2 Mildly decreased* 60 - 89 mL/min/1.73m2 Mildly to moderately decreased 45 - 59 mL/min/1.73m2 Moderately to severely decreased 30 - 44 mL/min/1.73m2 Severely decreased 15 - 29 mL/min/1.73m2 Kidney Failure < 15 mL/min/1.73m2 *Relative to young adult level Estimated glomerular filtration rate is determined by the 2020 CKD-EPI equation recommended by the National Kidney Foundation (A Unifying Approach to GFR Estimation: Recommendations of the NKF-ASK Task Force on Reassessing the Inclusion of Race in Diagnosing Kidney Disease, JASN 2020). The CKD-EPI equation should not be used for patients with unstable renal function and has not been validated in children and those over 70. Current interpretive data was last reviewed 2021. Blood 08/29/2025 3:21 AM CDT 08/29/2025 4:14 AM CDT us Taisha De Santiago DO LAB BLOOD ORDERABLES Final R esult [facility] [address] Department [place] [address] * (ABNORMAL) CBC without differential (08/29/2025 3:21 AM CDT) WBC 8.98 3.80 - 9.90 K/cumm Hgb 7.8(L) 13.0 - 17.5 g/dL [facility] Hct 25.2(L) 38.9 - 50.3 % [facility] Plt 271 150 - 400 K/cumm [facility] MPV 10.3 9.1 - 12.3 fL [facility] RBC 2.96(L) 4.30 - 5.80 M/cumm [facility] MCV 85.1 81.3 - 96.4 fL [facility] MCH 26.4(L) 27.1 - 33.3 pg [facility] MCHC 31.0(L) 32.3 - 35.7 g/dL [facility] RDW CV 15.4(H) 11.1 - 14.9 % [facility] RDW SD 47.0 35.7 - 48.1 fL [facility] NRBC abs 0.02(H) 0.00 - 0.01 K/cumm [facility] Blood 08/29/2025 3:21 AM CDT 08/29/2025 4:14 AM CDT [facility] BLOOD ORDERABLES Final R esult Performing Organization Address City/[facility]/[place] Co de Phone Number [facility] [address] [facility] [place] [email or web address] [address] * (ABNORMAL) Phosphorus (08/29/2025 3:21 AM CDT) Phosphorus, pl 2.2(L) 2.3 - 4.5 mg/dL Blood 08/29/2025 3:21 AM CDT 08/29/2025 4:14 AM CDT [facility] BLOOD ORDERABLES Final R esult Performing Organization Address [facility] Co de Phone Number [facility] [address] Department [employer] [place], [place] [id number] * Magnesium (08/29/2025 3:21 AM CDT) Pathologist [facility] Magnesium 1.7 1.4 - 2.5 mg/dL Blood 08/29/2025 3:21 AM CDT 08/29/2025 4:14 AM CDT [facility] BLOOD ORDERABLES Final R esult Performing Organization Address [facility] Co de Phone Number [facility] [address] [facility] [email or web address] [place], [place] [phone] * (ABNORMAL) Basic metabolic panel (08/29/2025 3:21 AM CDT) Sodium 139 135 - 145 mmol/L Potassium, pl 4.2 3.3 - 4.9 mmol/L [facility] Chloride 107 97 - 110 mmol/L [facility] CO2 24 22 - 32 mmol/L [facility] Anion gap 8 2 - 15 mmol/L [facility] BUN 25 6 - 25 mg/dL [facility] Creatinine 1.33(H) 0.80 - 1.30 mg/dL [facility] Comment:Reviewed Glucose 220(H) 70 - 199 mg/dL [facility] Comment: Interpretive Data Fasting glucose >/= 126 mg/dl is diagnostic for diabetes. Fasting is defined as no caloric intake for at least 8 hours. Fasting glucose between 100 mg/dl to 125 mg/dl is diagnostic of prediabetes. In a patient with classic symptoms of hyperglycemia or hyperglycemic crisis, a random glucose >/= 200 mg/dl is diagnostic for diabetes. In the absence of unequivocal hyperglycemia, results should be confirmed by repeat testing. The classification and Diagnosis of Diabetes Diabetes Care 2021; 46: S19-S40. Current interpretive data was last revised 2022. Calcium 7.7(L) 8.5 - 10.3 mg/dL [facility] Blood 08/29/2025 3:21 AM CDT 08/29/2025 4:14 AM CDT us Taisha De Santiago DO LAB BLOOD ORDERABLES Final R esult [facility] [address] Department [place] [address] * POCT glucose (08/28/2025 8:07 PM CDT) [facility] Glucose, POC 149 70 - 199 mg/dL Comment: For Glucose values <35 mg/dl when Hematocrit is >60 mg/dl,the test may not accurately detect significant hypoglycemia,and testing in the Laboratory should be considered if clinically indicated. Blood 08/28/2025 8:07 PM CDT 08/28/2025 8:07 PM CDT us Taisha Simse Wood DO LAB POCT ORDERABLES - DEVICE Final Result Performing Organization Address [facility] Co de Phone Number [facility] Thor BhargaviHugh Robbie Roa [facility] [email or web address] [place], [place] [phone] * (ABNORMAL) POCT glucose (08/28/2025 4:12 PM CDT) Glucose, POC 315(H) 70 - 199 mg/dL Comment: For Glucose values <35 mg/dl when Hematocrit is >60 mg/dl,the test may not accurately detect significant hypoglycemia,and testing in the Laboratory should be considered if clinically indicated. Blood 08/28/2025 4:12 PM CDT 08/28/2025 4:12 PM CDT [facility] POCT ORDERABLES - DEVICE Final Result Performing Organization Address [facility] de Phone Number [facility] [address] [place] [address] * (ABNORMAL) POCT glucose (08/28/2025 11:42 AM CDT) Glucose, POC 337(H) 70 - 199 mg/dL Comment: For Glucose values <35 mg/dl when Hematocrit is >60 mg/dl,the test may not accurately detect significant hypoglycemia,and testing in the Laboratory should be considered if clinically indicated. Blood 08/28/2025 11:4 2 AM CDT 08/28/2025 11:42 AM CDT [facility] POCT ORDERABLES - DEVICE Final Result Performing Organization Address [facility] Co de Phone Number [facility] [address] [facility] [email or web address] [place], [place] [phone] * (ABNORMAL) eGFR (08/28/2025 5:48 AM CDT) eGFR 25(L) >=60 mL/min/1. 73 m2 Comment: Interpretive Data Reference Interval Normal >/= 90 mL/min/1.73m2 Mildly decreased* 60 - 89 mL/min/1.73m2 Mildly to moderately decreased 45 - 59 mL/min/1.73m2 Moderately to severely decreased 30 - 44 mL/min/1.73m2 Severely decreased 15 - 29 mL/min/1.73m2 Kidney Failure < 15 mL/min/1.73m2 *Relative to young adult level Estimated glomerular filtration rate is determined by the 2020 CKD-EPI equation recommended by the National Kidney Foundation (A Unifying Approach to GFR Estimation: Recommendations of the NKF-ASK Task Force on Reassessing the Inclusion of Race in Diagnosing Kidney Disease, JASN 2020). The CKD-EPI equation should not be used for patients with unstable renal function and has not been validated in children and those over 70. Current interpretive data was last reviewed 2021. Blood 08/28/2025 5:48 AM CDT 08/28/2025 6:29 AM CDT us Taisha De Santiago DO LAB BLOOD ORDERABLES Final R esult [facility] [address] Department [place] [address] * (ABNORMAL) CBC without differential (08/28/2025 5:48 AM CDT) WBC 10.96(H) 3.80 - 9.90 K/cumm Hgb 9.7(L) 13.0 - 17.5 g/dL [facility] Hct 31.5(L) 38.9 - 50.3 % [facility] Plt 411(H) 150 - 400 K/cumm [facility] MPV 10.1 9.1 - 12.3 fL [facility] RBC 3.71(L) 4.30 - 5.80 M/cumm [facility] MCV 84.9 81.3 - 96.4 fL [facility] MCH 26.1(L) 27.1 - 33.3 pg [facility] MCHC 30.8(L) 32.3 - 35.7 g/dL [facility] RDW CV 15.3(H) 11.1 - 14.9 % [facility] RDW SD 46.9 35.7 - 48.1 fL [facility] NRBC abs 0.03(H) 0.00 - 0.01 K/cumm [facility] Blood 08/28/2025 5:48 AM CDT 08/28/2025 6:27 AM CDT [facility] BLOOD ORDERABLES Final R esult Performing Organization Address City/[facility]/ZIP Co de Phone Number [facility] [address] [facility] [place] [place] [address] * Phosphorus (08/28/2025 5:48 AM CDT) Pathologist [facility] Phosphorus, pl 3.6 2.3 - 4.5 mg/dL Blood 08/28/2025 5:48 AM CDT 08/28/2025 6:29 AM CDT [facility] BLOOD ORDERABLES Final R esult Performing Organization Address [facility] Co de Phone Number [facility] [address] [facility] [place] [address] * Magnesium (08/28/2025 5:48 AM CDT) Pathologist [facility] Magnesium 2.1 1.4 - 2.5 mg/dL Blood 08/28/2025 5:48 AM CDT 08/28/2025 6:29 AM CDT [facility] BLOOD ORDERABLES Final R esult Performing Organization Address City/[facility] Co de Phone Number [facility] [address] [facility] [employer] [place], [place] [phone] * (ABNORMAL) Comprehensive metabolic panel (08/28/2025 5:48 AM CDT) Pathologist [facility] Sodium 145 135 - 145 mmol/L Potassium, pl 4.4 3.3 - 4.9 mmol/L [facility] Chloride 109 97 - 110 mmol/L [facility] CO2 21(L) 22 - 32 mmol/L [facility] Anion gap 15 2 - 15 mmol/L [facility] BUN 47(H) 6 - 25 mg/dL [facility] Creatinine 2.64(H) 0.80 - 1.30 mg/dL [facility] Comment:Reviewed Glucose 145 70 - 199 mg/dL [facility] Comment: Interpretive Data Fasting glucose >/= 126 mg/dl is diagnostic for diabetes. Fasting is defined as no caloric intake for at least 8 hours. Fasting glucose between 100 mg/dl to 125 mg/dl is diagnostic of prediabetes. In a patient with classic symptoms of hyperglycemia or hyperglycemic crisis, a random glucose >/= 200 mg/dl is diagnostic for diabetes. In the absence of unequivocal hyperglycemia, results should be confirmed by repeat testing. The classification and Diagnosis of Diabetes Diabetes Care 2021; 46: S19-S40. Current interpretive data was last revised 2022. Calcium 8.4(L) 8.5 - 10.3 mg/dL [facility] Bilirubin, total 0.3 0.1 - 1.2 mg/dL [facility] Protein, pl 7.0 6.5 - 8.5 g/dL [facility] Albumin 3.5 3.5 - 5.0 g/dL [facility] Alk phos 231(H) 40 - 130 Units/L [facility] ALT 28 7 - 55 Units/L [facility] AST 45 10 - 50 Units/L [facility] Blood 08/28/2025 5:48 AM CDT 08/28/2025 6:29 AM CDT us Taisha De Santiago DO LAB BLOOD ORDERABLES Final R esult [facility] [address] Department [place] [address] * POCT glucose (08/28/2025 4:17 AM CDT) [facility] Glucose, POC 137 70 - 199 mg/dL Comment: For Glucose values <35 mg/dl when Hematocrit is >60 mg/dl,the test may not accurately detect significant hypoglycemia,and testing in the Laboratory should be considered if clinically indicated. Blood 08/28/2025 4:17 AM CDT 08/28/2025 4:17 AM CDT Taisha Olmstead [facility] LAB POCT ORDERABLES - DEVICE Final Result Performing Organization Address [facility] de Phone Number [facility] [address] [facility] [place] [place] [address] * (ABNORMAL) POCT glucose (08/28/2025 12:12 AM CDT) Glucose, POC 335(H) 70 - 199 mg/dL Comment: For Glucose values <35 mg/dl when Hematocrit is >60 mg/dl,the test may not accurately detect significant hypoglycemia,and testing in the Laboratory should be considered if clinically indicated. Blood 08/28/2025 12:1 2 AM CDT 08/28/2025 12:12 AM CDT Taisha Olmstead [facility] POCT ORDERABLES - DEVICE Final Result Performing Organization Address [facility] de Phone Number [facility] [address] [place] [address] * (ABNORMAL) POCT glucose (08/27/2025 8:49 PM CDT) Glucose, POC 310(H) 70 - 199 mg/dL Comment: For Glucose values <35 mg/dl when Hematocrit is >60 mg/dl,the test may not accurately detect significant hypoglycemia,and testing in the Laboratory should be considered if clinically indicated. Blood 08/27/2025 8:49 PM CDT 08/27/2025 8:49 PM CDT Taisha Olmstead [facility] POCT ORDERABLES - DEVICE Final Result Performing Organization Address [facility] de Phone Number [facility] [address] Department [place] [address] * (ABNORMAL) eGFR (08/27/2025 5:24 PM CDT) eGFR 11(L) >=60 mL/min/1. 73 m2 Comment: Interpretive Data Reference Interval Normal >/= 90 mL/min/1.73m2 Mildly decreased* 60 - 89 mL/min/1.73m2 Mildly to moderately decreased 45 - 59 mL/min/1.73m2 Moderately to severely decreased 30 - 44 mL/min/1.73m2 Severely decreased 15 - 29 mL/min/1.73m2 Kidney Failure < 15 mL/min/1.73m2 *Relative to young adult level Estimated glomerular filtration rate is determined by the 2020 CKD-EPI equation recommended by the National Kidney Foundation (A Unifying Approach to GFR Estimation: Recommendations of the NKF-ASK Task Force on Reassessing the Inclusion of Race in Diagnosing Kidney Disease, JASN 2020). The CKD-EPI equation should not be used for patients with unstable renal function and has not been validated in children and those over 70. Current interpretive data was last reviewed 2021. Blood 08/27/2025 5:24 PM CDT 08/27/2025 5:42 PM CDT us Taisha Olmstead [facility] [employer] BLOOD ORDERABLES Final R esult [facility] [address] Department [place] [address] * (ABNORMAL) Hemoglobin and hematocrit (08/27/2025 5:24 PM CDT) Hgb 9.0(L) 13.0 - 17.5 g/dL Hct 28.9(L) 38.9 - 50.3 % [facility] Blood 08/27/2025 5:24 PM CDT 08/27/2025 5:42 PM CDT [facility] BLOOD ORDERABLES Final R esult Performing Organization Address [facility]/ZIP Co de Phone Number [facility] [address] Department [place] [address] * Blood culture Blood (08/27/2025 5:24 PM CDT) Report Final Report: No growth Blood 08/27/2025 5:24 PM CDT 08/27/2025 5:40 PM CDT Narrative [facility] - 09/02/2025 7:01 AM CDT From a different site than #1. Collection->Peripheral Interpretive Data 1. Blood cultures are incubated and monitored continuously for 5 days (120 hours). The first negative report is issued within 24 hours of receipt in the laboratory. 2. All positive cultures are resulted and called to physicians/care providers as soon as they are detected. 3. A rapid molecular test for organism identification may be performed using the [employer]To[employer] Blood Culture Identification panel. This assay detects microbial DNA in a blood culture broth. This assay has been cleared by the [place] Food and Drug Administration and its performance characteristics have been verified by the [facility]. Interpretive data was last revised on December 08, 2022. Taisha De Santiago DO LAB MICROBIOLOGY - GENERAL O RDERABLES Final Result Performing Organization Address [facility] Co de Phone Number [facility] [address] [place] Department [place] [address] * Blood culture Blood (08/27/2025 5:24 PM CDT) Report Final Report: No growth Blood 08/27/2025 5:24 PM CDT 08/27/2025 5:41 PM CDT Narrative [facility] - 09/02/2025 7:01 AM CDT Collection->Peripheral Interpretive Data 1. Blood cultures are incubated and monitored continuously for 5 days (120 hours). The first negative report is issued within 24 hours of receipt in the laboratory. 2. All positive cultures are resulted and called to physicians/care providers as soon as they are detected. 3. A rapid molecular test for organism identification may be performed using the [employer] Blood Culture Identification panel. This assay detects microbial DNA in a blood culture broth. This assay has been cleared by the [place] Food and Drug Administration and its performance characteristics have been verified by the [facility]. Interpretive data was last revised on December 08, 2022. us Taisha De Santiago DO LAB MICROBIOLOGY - GENERAL O RDERABLES Final Result [facility] [facility] [address] Department [place] [address] * (ABNORMAL) Basic metabolic panel (08/27/2025 5:24 PM CDT) Sodium 138 135 - 145 mmol/L Potassium, pl 4.8 3.3 - 4.9 mmol/L [facility] Chloride 104 97 - 110 mmol/L [facility] CO2 17(L) 22 - 32 mmol/L [facility] Anion gap 17(H) 2 - 15 mmol/L [facility] BUN 69(H) 6 - 25 mg/dL [facility] Creatinine 5.40(H) 0.80 - 1.30 mg/dL [facility] Glucose 156 70 - 199 mg/dL [facility] Comment: Interpretive Data Fasting glucose >/= 126 mg/dl is diagnostic for diabetes. Fasting is defined as no caloric intake for at least 8 hours. Fasting glucose between 100 mg/dl to 125 mg/dl is diagnostic of prediabetes. In a patient with classic symptoms of hyperglycemia or hyperglycemic crisis, a random glucose >/= 200 mg/dl is diagnostic for diabetes. In the absence of unequivocal hyperglycemia, results should be confirmed by repeat testing. The classification and Diagnosis of Diabetes Diabetes Care 202; 46: S19-S40. Current interpretive data was last revised 2022. Calcium 7.8(L) 8.5 - 10.3 mg/dL [facility] Blood 08/27/2025 5:24 PM CDT 08/27/2025 5:42 PM CDT us Taisha De Santiago DO LAB BLOOD ORDERABLES Final R esult Performing Organization Address [facility] Co de Phone Number [facility] [address] [email or web address] [address] * POCT glucose (08/27/2025 4:52 PM CDT) Glucose, POC 148 70 - 199 mg/dL Comment: For Glucose values <35 mg/dl when Hematocrit is >60 mg/dl,the test may not accurately detect significant hypoglycemia,and testing in the Laboratory should be considered if clinically indicated. Blood 08/27/2025 4:52 PM CDT 08/27/2025 4:52 PM CDT [facility] POCT ORDERABLES - DEVICE Final Result Performing Organization Address [facility] Co de Phone Number [facility] [address] Department [place] [address] * IR Percutaneous Nephrostomy Bilateral (08/27/2025 2:57 PM CDT) Anatomical Region Laterality Modality Body Bilateral X-Ray Angiograph y 08/27/2025 4:24 PM CDT Impressions 08/27/2025 4:24 PM CDT Successful bilateral percutaneous nephrostomy. PLAN: Patient needs to have followup after 6-8 weeks for catheter exchange or internalization or possible removal if no definitive surgical plan is made in the interim. Electronically signed by: Christopher Maria MD Narrative 08/27/2025 4:24 PM CDT EXAMINATION : BILATERAL PERCUTANEOUS NEPHROSTOMY CATHETER PLACEMENT HISTORY/INDICATION: 69-year-old male, with hematuria and bilateral hydronephrosis, presenting for bilateral PCN placement ATTENDING PRESENCE: Christopher Maria MD, the attending radiologist was present from the beginning to the end of the procedure. SEDATION: Procedural sedation was administered under the attending physician's direction and continuous monitoring by a trained nurse specialist who was independent from those actually performing the procedure. Total monitored sedation time was 60 minutes. TECHNIQUE/FINDINGS: The risks, benefits and alternatives were discussed and informed consent was obtained. Prior to beginning the procedure, [place] Protocol was performed to confirm the patient's identity and the planned procedure. The fluoroscopy time has been recorded in the electronic medical record. Maximum sterile barriers including cap, mask, hand hygiene, sterile gloves, sterile gown, large sterile drape and 2% chlorhexidine for cutaneous antisepsis were used. Initial ultrasound imaging was done to localize the kidney and to assess the collecting system as well to identify a possible calyx for initial access. The overlying skin was then prepped and draped in the usual sterile manner and 1% Lidocaine was used to achieve local anesthesia. A 21-gauge Chiba needle was then used to access the left renal collecting system under real-time ultrasound guidance with appropriate needle tip positioning documented by the aspiration of urine and by fluoroscopy following the injection of contrast. Limited contrast injection demonstrated mild to moderate hydronephrosis. Air was then injected to localize a posterior calyx and the overlying skin was infiltrated with 1% lidocaine. The midpole posterior calyx below the 12th rib was accessed using an 21-gauge needle with appropriate needle tip positioning documented by fluoroscopy. A guidewire was passed into the collecting system and the tract was dilated before placing a 10-Qatari cope catheter. The retaining loop was formed and the catheter was secured to the skin with a single stitch of 0-Prolene. The catheter was then connected to gravity drainage. The same procedure was subsequently performed on the opposite side with ultimate placement of a 10-Qatari cope Final fluoroscopic spot images demonstrated bilateral catheters well positioned within the renal pelvis. ESTIMATED BLOOD LOSS: Minimal. CONDITION: Stable DISCHARGED TO: Recovery and then back to inpatient floor FINDINGS: Initial ultrasound images demonstrated mild to moderate bilateral hydronephrosis. Intraprocedural images demonstrated midpole access in the left side and upper pole access in the right side. Procedure Note Christopher Gunn MD - 08/27/2025 EXAMINATION : BILATERAL PERCUTANEOUS NEPHROSTOMY CATHETER PLACEMENT HISTORY/INDICATION: 69-year-old male, with hematuria and bilateral hydronephrosis, presenting for bilateral PCN placement ATTENDING PRESENCE: Christopher Maria MD, the attending radiologist was present from the beginning to the end of the procedure. SEDATION: Procedural sedation was administered under the attending physician's direction and continuous monitoring by a trained nurse specialist who was independent from those actually performing the procedure. Total monitored sedation time was 60 minutes. TECHNIQUE/FINDINGS: The risks, benefits and alternatives were discussed and informed consent was obtained. Prior to beginning the procedure, [place] Protocol was performed to confirm the patient's identity and the planned procedure. The fluoroscopy time has been recorded in the electronic medical record. Maximum sterile barriers including cap, mask, hand hygiene, sterile gloves, sterile gown, large sterile drape and 2% chlorhexidine for cutaneous antisepsis were used. Initial ultrasound imaging was done to localize the kidney and to assess the collecting system as well to identify a possible calyx for initial access. The overlying skin was then prepped and draped in the usual sterile manner and 1% Lidocaine was used to achieve local anesthesia. A 21-gauge Chiba needle was then used to access the left renal collecting system under real-time ultrasound guidance with appropriate needle tip positioning documented by the aspiration of urine and by fluoroscopy following the injection of contrast. Limited contrast injection demonstrated mild to moderate hydronephrosis. Air was then injected to localize a posterior calyx and the overlying skin was infiltrated with 1% lidocaine. The midpole posterior calyx below the 12th rib was accessed using an 21-gauge needle with appropriate needle tip positioning documented by fluoroscopy. A guidewire was passed into the collecting system and the tract was dilated before placing a 10-Qatari cope catheter. The retaining loop was formed and the catheter was secured to the skin with a single stitch of 0-Prolene. The catheter was then connected to gravity drainage. The same procedure was subsequently performed on the opposite side with ultimate placement of a 10-Qatari cope Final fluoroscopic spot images demonstrated bilateral catheters well positioned within the renal pelvis. ESTIMATED BLOOD LOSS: Minimal. CONDITION: Stable DISCHARGED TO: Recovery and then back to inpatient floor FINDINGS: Initial ultrasound images demonstrated mild to moderate bilateral hydronephrosis. Intraprocedural images demonstrated midpole access in the left side and upper pole access in the right side. IMPRESSION: Successful bilateral percutaneous nephrostomy. PLAN: Patient needs to have followup after 6-8 weeks for catheter exchange or internalization or possible removal if no definitive surgical plan is made in the interim. Electronically signed by: Christopher Maria MD us Taisha De Santiago DO IMG IR PROCEDURES Final Resu lt * POCT glucose (08/27/2025 11:39 AM CDT) Glucose, POC 183 70 - 199 mg/dL Comment: For Glucose values <35 mg/dl when Hematocrit is >60 mg/dl,the test may not accurately detect significant hypoglycemia,and testing in the Laboratory should be considered if clinically indicated. Blood 08/27/2025 11:3 9 AM CDT 08/27/2025 11:39 AM CDT [facility] POCT ORDERABLES - DEVICE Final Result Performing Organization Address [facility] Co de Phone Number [facility] [address] [facility] [email or web address] [address] * POCT glucose (08/27/2025 8:29 AM CDT) Glucose, POC 182 70 - 199 mg/dL Comment: For Glucose values <35 mg/dl when Hematocrit is >60 mg/dl,the test may not accurately detect significant hypoglycemia,and testing in the Laboratory should be considered if clinically indicated. Glucose comment 1 RN/MD Notified [facility] Blood 08/27/2025 8:29 AM CDT 08/27/2025 8:29 AM CDT [facility] POCT ORDERABLES - DEVICE Final Result Performing Organization Address [facility] Co de Phone Number [facility] [address] [facility] [place] [email or web address] [address] * POCT glucose (08/27/2025 5:03 AM CDT) Glucose, POC 174 70 - 199 mg/dL Comment: For Glucose values <35 mg/dl when Hematocrit is >60 mg/dl,the test may not accurately detect significant hypoglycemia,and testing in the Laboratory should be considered if clinically indicated. Blood 08/27/2025 5:03 AM CDT 08/27/2025 5:03 AM CDT Jeremias Stahl DO LAB POCT ORDERABLES - DE VICE Final Result Performing Organization Address [facility]/ZIP Co de Phone Number [facility] [address] Department [place] [address] * (ABNORMAL) eGFR (08/27/2025 4:45 AM CDT) eGFR 10(L) >=60 mL/min/1. 73 m2 Comment: Interpretive Data Reference Interval Normal >/= 90 mL/min/1.73m2 Mildly decreased* 60 - 89 mL/min/1.73m2 Mildly to moderately decreased 45 - 59 mL/min/1.73m2 Moderately to severely decreased 30 - 44 mL/min/1.73m2 Severely decreased 15 - 29 mL/min/1.73m2 Kidney Failure < 15 mL/min/1.73m2 *Relative to young adult level Estimated glomerular filtration rate is determined by the 2020 CKD-EPI equation recommended by the National Kidney Foundation (A Unifying Approach to GFR Estimation: Recommendations of the NKF-ASK Task Force on Reassessing the Inclusion of Race in Diagnosing Kidney Disease, JASN 2020). The CKD-EPI equation should not be used for patients with unstable renal function and has not been validated in children and those over 70. Current interpretive data was last reviewed 2021. Blood 08/27/2025 4:45 AM CDT 08/27/2025 5:36 AM CDT us Jeremias Stahl DO LAB BLOOD ORDERABLES Fin al Result [facility] [address] Department of Laboratories [place], [place] [id number] * (ABNORMAL) CBC without differential (08/27/2025 4:45 AM CDT) WBC 12.28(H) 3.80 - 9.90 K/cumm Hgb 9.0(L) 13.0 - 17.5 g/dL [facility] Hct 29.2(L) 38.9 - 50.3 % [facility] Plt 315 150 - 400 K/cumm [facility] MPV 10.2 9.1 - 12.3 fL [facility] RBC 3.30(L) 4.30 - 5.80 M/cumm [facility] MCV 88.5 81.3 - 96.4 fL [facility] MCH 27.3 27.1 - 33.3 pg [facility] MCHC 30.8(L) 32.3 - 35.7 g/dL [facility] RDW CV 15.3(H) 11.1 - 14.9 % [facility] RDW SD 49.5(H) 35.7 - 48.1 fL [facility] NRBC abs 0.00 0.00 - 0.01 K/cumm [facility] Blood 08/27/2025 4:45 AM CDT 08/27/2025 5:36 AM CDT Jeremias Stahl DO LAB BLOOD ORDERABLES Fin al Result [facility] [address] Department [place] [address] * (ABNORMAL) Basic metabolic panel (08/27/2025 4:45 AM CDT) Sodium 140 135 - 145 mmol/L Potassium, pl 5.0(H) 3.3 - 4.9 mmol/L [facility] Chloride 106 97 - 110 mmol/L [facility] CO2 20(L) 22 - 32 mmol/L [facility] Anion gap 14 2 - 15 mmol/L [facility] BUN 68(H) 6 - 25 mg/dL [facility] Creatinine 5.71(H) 0.80 - 1.30 mg/dL [facility] Glucose 167 70 - 199 mg/dL [facility] Comment: Interpretive Data Fasting glucose >/= 126 mg/dl is diagnostic for diabetes. Fasting is defined as no caloric intake for at least 8 hours. Fasting glucose between 100 mg/dl to 125 mg/dl is diagnostic of prediabetes. In a patient with classic symptoms of hyperglycemia or hyperglycemic crisis, a random glucose >/= 200 mg/dl is diagnostic for diabetes. In the absence of unequivocal hyperglycemia, results should be confirmed by repeat testing. The classification and Diagnosis of Diabetes Diabetes Care 2021; 46: S19-S40. Current interpretive data was last revised 2022. Calcium 7.8(L) 8.5 - 10.3 mg/dL [facility] Blood 08/27/2025 4:45 AM CDT 08/27/2025 5:36 AM CDT Jeremias Stahl DO LAB BLOOD ORDERABLES Fin al Result [facility] [address] Department [place] [address] * POCT glucose (08/26/2025 8:07 PM CDT) Glucose, POC 171 70 - 199 mg/dL Blood 08/26/2025 8:07 PM CDT 08/26/2025 8:07 PM CDT Porter Cooper MD LAB POCT ORDERABLES - DEVICE Final Result Performing Organization Address City/[facility]/ZIP Co de Phone Number [place] [facility] ([facility]) [address] [facility] [place] [address] * POCT glucose (08/26/2025 4:30 PM CDT) Glucose, POC 182 70 - 199 mg/dL Blood 08/26/2025 4:30 PM CDT 08/26/2025 4:30 PM CDT us Porter Cooper MD LAB POCT ORDERABLES - DEVICE Final Result Performing Organization Address City/[facility]/ZIP Co de Phone Number [facility] ([place]) 1 [facility] [email or web address] [address] * POCT glucose (08/26/2025 11:51 AM CDT) Glucose, POC 163 70 - 199 mg/dL Blood 08/26/2025 11:5 1 AM CDT 08/26/2025 11:51 AM CDT Porter Cooper MD LAB POCT ORDERABLES - DEVICE Final Result [facility] 1 [facility] Department [place] [address] * CT Abdomen Pelvis WO Contrast (08/26/2025 10:08 AM CDT) Anatomical Region Laterality Modality Body N/A Computed Tomogra phy 08/26/2025 10:2 6 AM CDT Narrative 08/26/2025 10:46 AM CDT EXAM DESCRIPTION: CT ABDOMEN PELVIS WO CONTRAST REASON FOR STUDY: Eval for hydro Evaluate for hydro, pt has gross hematuria, weems catheter was replaced yesterday, and pt had cystoscopy with clot evacuation. TECHNIQUE: CT scan of the abdomen and pelvis performed without intravenous and without oral contrast using helical scanning technique. Reconstructed coronal and sagittal MPR images reviewed. All images stored on PACS. Automated exposure control was used as a dose optimization technique for this examination. COMPARISON: CT abdomen and pelvis 08/06/2025 FINDINGS: The sensitivity for detection of visceral lesions is diminished without the use of intravenous contrast. LOWER CHEST: No significant pulmonary abnormalities. No effusion. LIVER: Which appear to have increased in size and number when compared to prior. For example in the right hepatic dome, measures 3.8 x 3.7 cm, previously 3.0 x 3.3 cm (213), in the inferior right hepatic lobe measures 4.3 x 4.3 cm, previously 4.1 x 4.3 cm (248). GALLBLADDER: Surgically absent BILE DUCTS: No intrahepatic or extrahepatic ductal dilatation. SPLEEN: Normal size. No focal lesions. PANCREAS: No identified cystic or solid masses. No significant calcifications. No adjacent inflammation or peripancreatic fluid collections. Pancreatic duct not dilated. ADRENALS: Nodular left thyroid gland, stable. No right adrenal nodule. KIDNEYS/URINARY TRACT: Normal-sized kidneys. Mild increase in bilateral mild hydronephrosis and dilated renal pelvises. Stable 1.2 cm exophytic left renal cyst. No solid mass. Decompressed urinary bladder with Weems catheter. The urinary bladder contains high-density fluid, representing blood products. There is circumferential urinary bladder wall thickening and mild surrounding fat stranding, suspicious for acute cystitis. GI: No dilated bowel loops. No obvious wall thickening. Normal appendix. No significant diverticular disease. PERITONEUM: Soft tissue mass in the right pelvis measures 3.8 x 4.1 cm, previously 3.4 x 3.1 cm (2/117). 1.9 cm right internal iliac node (2/112), previously 1.3 cm RETROPERITONEUM: No mass or adenopathy. REPRODUCTIVE: Enlarged heterogeneous prostate containing calcifications, measuring 5.9 cm. There is masslike enlargement of the seminal vesicles, incompletely evaluated. VASCULATURE: Atherosclerotic disease in the aorta, aortic branches, and iliacs MUSCULOSKELETAL: No significant abnormality. OTHER: No other abnormality. IMPRESSION: 1. Mild increase in bilateral (rlcvl-yigpbni-pqxh-left) mild hydronephrosis and dilated renal pelvises. 2. Decompressed urinary bladder with Weems catheter. High-density fluid within the urinary bladder, representing blood products. Circumferential urinary bladder wall thickening and mild surrounding fat stranding, suspicious for acute cystitis. 3. Enlarged heterogeneous prostate containing calcifications. Masslike enlargement of the seminal vesicles, incompletely evaluated. Recommend further evaluation with prostate MRI 4. Interval increase in size of the soft tissue mass in the right pelvis and right internal iliac lymph node, suspicious for metastatic disease. Recommend soft tissue sampling 5. Interval increase in size and number of the hepatic lesions, suspicious for metastatic disease. This can be further evaluated with MRI liver mass protocol THIS IS AN ELECTRONICALLY VERIFIED FINAL REPORT 08/26/2025 10:46 AM - Electronically signed by Sintia Smith M.D. FT: FT Report ID: [id number] Reading Location: [place] [address] Procedure Note Sintia Callahan MD - 08/26/2025 EXAM DESCRIPTION: CT ABDOMEN PELVIS WO CONTRAST REASON FOR STUDY: Eval for hydro Evaluate for hydro, pt has gross hematuria, weems catheter was replaced yesterday, and pt had cystoscopy with clot evacuation. TECHNIQUE: CT scan of the abdomen and pelvis performed without intravenousand without oral contrast using helical scanning technique. Reconstructed coronal and sagittal MPR images reviewed. All images stored on PACS.Automated exposure control was used as a dose optimization technique for this examination. COMPARISON: CT abdomen and pelvis 08/06/2025 FINDINGS: The sensitivity for detection of visceral lesions is diminished withoutthe use of intravenous contrast. LOWER CHEST: No significant pulmonary abnormalities. No effusion. LIVER: Which appear to have increased in size and number when comparedto prior. For example in the right hepatic dome, measures 3.8 x 3.7 cm, previously 3.0 x 3.3 cm (2/13), in the inferior right hepatic lobemeasures 4.3 x 4.3 cm, previously 4.1 x 4.3 cm (2/48). GALLBLADDER: Surgically absent BILE DUCTS: No intrahepatic or extrahepatic ductal dilatation. SPLEEN: Normal size. No focal lesions. PANCREAS: No identified cystic or solid masses. No significant calcifications. No adjacent inflammation or peripancreatic fluidcollections. Pancreatic duct not dilated. ADRENALS: Nodular left thyroid gland, stable. No right adrenal nodule. KIDNEYS/URINARY TRACT: Normal-sized kidneys. Mild increase in bilateral mild hydronephrosis and dilated renal pelvises. Stable 1.2 cm exophyticleft renal cyst. No solid mass. Decompressed urinary bladder with Weems catheter. The urinary bladder contains high-density fluid, representingblood products. There is circumferential urinary bladder wall thickening andmild surrounding fat stranding, suspicious for acute cystitis. GI: No dilated bowel loops. No obvious wall thickening. Normalappendix. No significant diverticular disease. PERITONEUM: Soft tissue mass in the right pelvis measures 3.8 x 4.1 cm, previously 3.4 x 3.1 cm (2/117). 1.9 cm right internal iliac node(2/112), previously 1.3 cm RETROPERITONEUM: No mass or adenopathy. REPRODUCTIVE: Enlarged heterogeneous prostate containing calcifications, measuring 5.9 cm. There is masslike enlargement of the seminal vesicles, incompletely evaluated. VASCULATURE: Atherosclerotic disease in the aorta, aortic branches, and iliacs MUSCULOSKELETAL: No significant abnormality. OTHER: No other abnormality. IMPRESSION: 1. Mild increase in bilateral (jsgwe-ijcogry-idmi-left) mildhydronephrosis and dilated renal pelvises. 2. Decompressed urinary bladder with Weems catheter. High-density fluid within the urinary bladder, representing blood products. Circumferential urinary bladder wall thickening and mild surrounding fat stranding,suspicious for acute cystitis. 3. Enlarged heterogeneous prostate containing calcifications. Masslike enlargement of the seminal vesicles, incompletely evaluated. Recommend further evaluation with prostate MRI 4. Interval increase in size of the soft tissue mass in the right pelvisand right internal iliac lymph node, suspicious for metastatic disease.Recommend soft tissue sampling 5. Interval increase in size and number of the hepatic lesions,suspicious for metastatic disease. This can be further evaluated with MRI liver mass protocol THIS IS AN ELECTRONICALLY VERIFIED FINAL REPORT 08/26/2025 10:46 AM - Electronically signed by Sintia Smith M.D. FT: FT Report ID: [id number] Reading Location: [place] [address] Elva Mathis MD IMG CT PROCEDURES Final Result * (ABNORMAL) POCT glucose (08/26/2025 7:40 AM CDT) [facility] Glucose, POC 203(H) 70 - 199 mg/dL Blood 08/26/2025 7:40 AM CDT 08/26/2025 7:40 AM CDT Porter Cooper MD LAB POCT ORDERABLES - DEVICE Final Result [facility] [place] [address] [facility] Department [place] [address] * (ABNORMAL) eGFR (08/26/2025 4:15 AM CDT) Pathologist [facility] eGFR 12(L) >=60 mL/min/1. 73 m2 Comment: Interpretive Data Reference Interval Normal >/= 90 mL/min/1.73m2 Mildly decreased* 60 - 89 mL/min/1.73m2 Mildly to moderately decreased 45 - 59 mL/min/1.73m2 Moderately to severely decreased 30 - 44 mL/min/1.73m2 Severely decreased 15 - 29 mL/min/1.73m2 Kidney Failure < 15 mL/min/1.73m2 *Relative to young adult level Estimated glomerular filtration rate is determined by the 2020 CKD-EPI equation recommended by the National Kidney Foundation (A Unifying Approach to GFR Estimation: Recommendations of the NKF-ASK Task Force on Reassessing the Inclusion of Race in Diagnosing Kidney Disease, JASN 2020). The CKD-EPI equation should not be used for patients with unstable renal function and has not been validated in children and those over 70. Current interpretive data was last reviewed 2021. Blood 08/26/2025 4:15 AM CDT 08/26/2025 4:27 AM CDT Angella Melendez NP LAB BLOOD ORDERABLES Final Result [facility] ([place]) 1 [facility] Department [place] [address] * (ABNORMAL) Differential, auto (08/26/2025 4:15 AM CDT) Neutrophil abs 11.61(H) 1.50 - 6.50 K/cumm Imm gran abs 0.08 0.00 - 0.10 K/cumm [facility] ([place]) Lymphocyte abs 1.19 0.80 - 3.30 K/cumm [facility] ([place]) Monocyte abs 1.00(H) 0.20 - 0.80 K/cumm [facility] ([place]) Eosinophil abs 0.02 0.00 - 0.50 K/cumm [facility] ([place]) Basophil abs 0.02 0.00 - 0.10 K/cumm [facility] ([place]) Neutrophil pct 83.5 % [facility] ([place]) Comment: Interpretive Data Percent cell count reference ranges are not reported, since discordance with absolute values may lead to misinterpretation of CBC data. Current Interpretive Data was last revised on 2018. Imm gran pct 0.6 % [facility] ([place]) Comment: Interpretive Data Percent cell count reference ranges are not reported, since discordance with absolute values may lead to misinterpretation of CBC data. Current Interpretive Data was last revised on 2018. Lymphocyte pct 8.5 % [facility] ([place]) Comment: Interpretive Data Percent cell count reference ranges are not reported, since discordance with absolute values may lead to misinterpretation of CBC data. Current Interpretive Data was last revised on 2018. Monocyte pct 7.2 % [facility] ([place]) Comment: Interpretive Data Percent cell count reference ranges are not reported, since discordance with absolute values may lead to misinterpretation of CBC data. Current Interpretive Data was last revised on 2018. Eosinophil pct 0.1 % [facility] ([place]) Comment: Interpretive Data Percent cell count reference ranges are not reported, since discordance with absolute values may lead to misinterpretation of CBC data. Current Interpretive Data was last revised on 2018. Basophil pct 0.1 % [facility] ([place]) Comment: Interpretive Data Percent cell count reference ranges are not reported, since discordance with absolute values may lead to misinterpretation of CBC data. Current Interpretive Data was last revised on 2018. Blood 08/26/2025 4:15 AM CDT 08/26/2025 4:27 AM CDT Angella Melendez NP LAB BLOOD ORDERABLES Final Result [facility] ([place]) 1 [facility] Department [place] [address] * (ABNORMAL) CBC with auto differential (08/26/2025 4:15 AM CDT) WBC 13.92(H) 3.80 - 9.90 K/cumm Hgb 9.4(L) 13.0 - 17.5 g/dL [facility] ([place]) Hct 30.4(L) 38.9 - 50.3 % [facility] ([place]) Plt 315 150 - 400 K/cumm [facility] ([place]) MPV 10.0 9.1 - 12.3 fL [facility] RBC 3.53(L) 4.30 - 5.80 M/cumm [facility] ([place]) MCV 86.1 81.3 - 96.4 fL [facility] ([place]) MCH 26.6(L) 27.1 - 33.3 pg [facility] ([place]) MCHC 30.9(L) 32.3 - 35.7 g/dL [facility] ([place]) RDW CV 15.1(H) 11.1 - 14.9 % [facility] ([place]) RDW SD 47.5 35.7 - 48.1 fL [facility] NRBC abs 0.00 0.00 - 0.01 K/cumm [facility] ([place] Blood 08/26/2025 4:15 AM CDT 08/26/2025 4:27 AM CDT Angella Melendez NP LAB BLOOD ORDERABLES Final Result [facility] ([place]) 1 [facility] Department [place] [address] * (ABNORMAL) Comprehensive metabolic panel (08/26/2025 4:15 AM CDT) Sodium 138 135 - 145 mmol/L Potassium, pl 5.0(H) 3.3 - 4.9 mmol/L [facility] Chloride 104 97 - 110 mmol/L [facility]) CO2 21(L) 22 - 32 mmol/L [facility] ([place]) Anion gap 13 2 - 15 mmol/L [facility] BUN 62(H) 6 - 25 mg/dL [facility]) Creatinine 5.07(H) 0.80 - 1.30 mg/dL [facility] ([place]) Glucose 190 70 - 199 mg/dL [facility] ([place] Comment: Interpretive Data Fasting glucose >/= 126 mg/dl is diagnostic for diabetes. Fasting is defined as no caloric intake for at least 8 hours. Fasting glucose between 100 mg/dl to 125 mg/dl is diagnostic of prediabetes. In a patient with classic symptoms of hyperglycemia or hyperglycemic crisis, a random glucose >/= 200 mg/dl is diagnostic for diabetes. In the absence of unequivocal hyperglycemia, results should be confirmed by repeat testing. The classification and Diagnosis of Diabetes Diabetes Care 2021; 46: S19-S40. Current interpretive data was last revised 2022. Calcium 8.3(L) 8.5 - 10.3 mg/dL [facility] ([place]) Bilirubin, total 0.2 0.1 - 1.2 mg/dL [facility] ([place]) Protein, pl 6.1(L) 6.5 - 8.5 g/dL [facility] ([place]) Albumin 3.0(L) 3.5 - 5.0 g/dL [facility] ([place]) Alk phos 167(H) 40 - 130 Units/L [facility] ([place]) ALT 36 7 - 55 Units/L [facility] ([place]) AST 30 10 - 50 Units/L [facility] ([place]) Blood 08/26/2025 4:15 AM CDT 08/26/2025 4:27 AM CDT us Angella Melendez NP LAB BLOOD ORDERABLES Final Result [facility] ([place]) 1 [facility] [place] [address] * (ABNORMAL) POCT glucose (08/26/2025 2:28 AM CDT) [facility] Signature Glucose, POC 253(H) 70 - 199 mg/dL Blood 08/26/2025 2:28 AM CDT 08/26/2025 2:28 AM CDT us Liliana Mei MD LAB POCT ORDERABLES - DEVICE F inal Result [facility] ([place]) 1 [facility] [place] [place] [address] * (ABNORMAL) POCT glucose (08/25/2025 8:08 PM CDT) Glucose, POC 262(H) 70 - 199 mg/dL Blood 08/25/2025 8:08 PM CDT 08/25/2025 8:08 PM CDT Liliana Mei MD LAB POCT ORDERABLES - DEVICE F inal Result Performing Organization Address [facility] Co de Phone Number [facility] ([place]) 1 [facility] [place] [address] * POCT glucose (08/25/2025 4:36 PM CDT) Glucose, POC 165 70 - 199 mg/dL Blood 08/25/2025 4:36 PM CDT 08/25/2025 4:36 PM CDT Liliana Mei MD LAB POCT ORDERABLES - DEVICE F inal Result Performing Organization Address [facility] de Phone Number [facility] ([place]) 1 [facility] [place] [address] * FL Retro Pyelo (In Or) (08/25/2025 2:23 PM CDT) Anatomical Region Laterality Modality Body N/A Radio Fluoroscop y 08/25/2025 4:23 PM CDT Narrative 08/25/2025 4:26 PM CDT EXAM DESCRIPTION: FL RETRO PYELO (IN OR) HISTORY: pain Cystoscopy FL time 0.1 minutes Dose 0.4 mGy COMPARISON: CT abdomen pelvis 08/06/2025 RADIATION DOSE: Dose: 24.59 uGym2 Dose Area Product (DAP) TECHNIQUE/FINDINGS: 2 fluoroscopic intraoperative images were submitted. On the final fluoroscopic intraoperative image there appears to be contrast within the urinary bladder. There does not appear to have been placement of a stent. See surgeon's operative report for further details. IMPRESSION: Fluoroscopic imaging without stent placement. See surgeon's operative report for further details. THIS IS AN ELECTRONICALLY VERIFIED FINAL REPORT 08/25/2025 4:26 PM - Electronically signed by Rosendo De La Rosa M.D. AM: AM Report ID: [id number] Reading Location: [id number] Procedure Note Rosendo De La Rosa MD - 08/25/2025 EXAM DESCRIPTION: FL RETRO PYELO (IN OR) HISTORY: pain Cystoscopy FL time 0.1 minutes Dose 0.4 mGy COMPARISON: CT abdomen pelvis 08/06/2025 RADIATION DOSE: Dose: 24.59 uGym2 Dose Area Product (DAP) TECHNIQUE/FINDINGS: 2 fluoroscopic intraoperative images were submitted. On the final fluoroscopic intraoperative image there appears to be contrast within the urinary bladder. There does not appear to have been placement of a stent. See surgeon's operative report for further details. IMPRESSION: Fluoroscopic imaging without stent placement. See surgeon's operativereport for further details. THIS IS AN ELECTRONICALLY VERIFIED FINAL REPORT 08/25/2025 4:26 PM - Electronically signed by Rosendo De La Rosa M.D. AM: AM Report ID: [id number] Reading Location: [id number] Elva Mathis MD IMG FLUOROSCOPY PROCEDURES Fin al Result * POCT glucose (08/25/2025 2:16 PM CDT) Glucose, POC 151 70 - 199 mg/dL Blood 08/25/2025 2:16 PM CDT 08/25/2025 2:16 PM CDT Liliana Mei MD LAB POCT ORDERABLES - DEVICE F inal Result [facility] ([place]) 1 [facility] Department [place] [address] * DC AN ELECTIVE SUPRAGLOTTIC AIRWAY (08/25/2025 1:30 PM CDT) Narrative Sascha Dias CRNA - 08/25/2025 1:30 PM CDT Sascha Dias CRNA 08/25/2025 1:31 PM Airway Patient location: OR Urgency: elective Indications for airway management: anesthesia and airway protection Difficult airway: no Staff: Placed by: BREASTFEEDING EDUCATOR: Sascha Dias CRNA Emergent airway documentation: Risks and benefits discussed: yes Consent obtained: yes Consent given by: patient Airway prep: Preoxygenated: yes Patient position: sniffing Mask difficulty assessment: 0 - not attempted Spontaneous ventilation during airway: absent Sedation level during airway: GA Final airway details: Final airway type: supraglottic airway Final supraglottic airway: unique SGA size: 5 Number of attempts: 1 Additional comments: Atraumatic LMA placement. Tim Haines DO ANESTHESIA ORDERABL ES Final Result * (ABNORMAL) POCT glucose (08/25/2025 1:05 PM CDT) Glucose, POC 204(H) 70 - 199 mg/dL Blood 08/25/2025 1:05 PM CDT 08/25/2025 1:05 PM CDT Liliana Mei MD LAB POCT ORDERABLES - DEVICE F inal Result Performing Organization Address [facility] Co de Phone Number [employer] [facility] ([place]) 1 [facility] [place] [address] * (ABNORMAL) POCT glucose (08/25/2025 11:50 AM CDT) Glucose, POC 204(H) 70 - 199 mg/dL Blood 08/25/2025 11:5 0 AM CDT 08/25/2025 11:50 AM CDT Liliana Mei MD LAB POCT ORDERABLES - DEVICE F inal Result Performing Organization Address [facility] Co de Phone Number [facility] ([place]) 1 [facility] [place] [address] * Surgical pathology (08/25/2025 9:26 AM CDT) Tissue (Prostate, transurethral resection) 08/25/2025 1:42 PM CDT Narrative PATHOLOGY [facility] ([place]) - 08/29/2025 12:42 PM CDT EPIC results best viewed via link to PDF [facility] Department of Pathology [address] [place] [address] Note to Patients: This report may contain a detailed description of human tissue sent by a health care provider to the laboratory for pathologic evaluation. The content of this report is essential for diagnosis and may provide important critical findings. This information may be unfamiliar to patients to review without a medical professional present. It is advised that the patient review this report in the presence of a health care provider who can answer questions and explain the details. Final Report Patient Name: EARLE HASSAN Address: [address] [place] [address] Gender: M : 1955 (Age: 69) Service: Medical Location: [facility] Hospital #: [id number] Patient Type: [facility] Taken: 08/25/2025 Received: 08/26/2025 Accessioned: 08/26/2025 Reported: 08/29/2025 Physician(s):Elva Mathis MD Diagnosis: Prostate tissue, transurethral resection/biopsy: - Consistent with high-grade neuroendocrine carcinoma. Lee Dailey M.D. Report Electronically Reviewed and Signed Out By Lee Dailey M.D. 08/29/2025 12:42:45 Specimen(s) Received: A: Prostate tissue Microscopic Description: Sections show several fragments of prostatic parenchyma which is involved by a high-grade appearing epithelial neoplasm characterized by angulated nests of malignant cells. Some areas show crush artifact and necrosis. Cytologically, the cells show fairly dispersed chromatin without prominent nucleoli. There is a background of apoptotic debris and mitotic figures seen. The morphologic findings suggest neuroendocrine differentiation. In order to confirm the diagnosis, a panel of immunohistochemical stains was performed with adequate controls on block A1. The lesional cells are positive for pancytokeratin AE1/AE3, synaptophysin, chromogranin, CD56, CAM5.2, and TTF-1 (patchy). They are negative for RADHA-3, PSA, and CDX2. The Ki-67 is high at 90%. 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 Clinical History: Hematuria. Cystoscopy clot evacuation with possible resection bladder tumor. Gross Description: The specimen is submitted in a single container labeled EARLE HASSAN and prostate chips. It is a(n) 2 gram aggregate of multiple pale hardin to pink-hardin rubbery tissue fragments and blood clot. All in A1 and A2 Maureen Bonilla R.N., Kina/Krysta Glass M.D. REPORT IMAGES AND SCANNED DOCUMENTS, IF INCLUDED, ONLY VIEWABLE IN PDF VERSION OF REPORT The performance characteristics of some immunohistochemical stains, fluorescence in-situ hybridization tests and immunophenotyping by flow cytometry cited in this report (if any) were determined by the Surgical Pathology Department at [facility] as part of an ongoing water quality tester program and in compliance with federally mandated regulations drawn from the Clinical Laboratory Improvement Act of 1988 (CLIA '88). Some of these tests rely on the use of analyte specific reagents and are subject to specific labeling requirements by the US Food and Drug Administration. Such diagnostic tests may only be performed in a facility that is certified by the Department of Health and Human Services as a high complexity laboratory under CLIA '88. The FDA has determined that such clearance or approval is not necessary. This test is used for clinical purposes. It should not be regarded as investigational or for research. Nevertheless, federal rules concerning the medical use of analyte specific reagents require that the following disclaimer be attached to the report: This test was developed and its performance characteristics determined by the Surgical Pathology Department [facility]. It has not been cleared or approved by the U. S. Food and Drug Administration. Note for decalcified specimens: This assay has not been validated on decalcified tissues. Results should be interpreted with caution given the possibility of false negativity on decalcified specimens Elva Mathis MD LAB PATHOLOGY ORDERABLES Final Result PATHOLOGY [facility] ([place]) 1 [place] [address] * POCT glucose (08/25/2025 7:55 AM CDT) Glucose, POC 199 70 - 199 mg/dL Blood 08/25/2025 7:55 AM CDT 08/25/2025 7:55 AM CDT Liliana Mei MD LAB POCT ORDERABLES - DEVICE F inal Result [facility] ([place]) 1 [facility] [place] [address] * (ABNORMAL) eGFR (08/25/2025 3:32 AM CDT) eGFR 14(L) >=60 mL/min/1. 73 m2 Comment: Interpretive Data Reference Interval Normal >/= 90 mL/min/1.73m2 Mildly decreased* 60 - 89 mL/min/1.73m2 Mildly to moderately decreased 45 - 59 mL/min/1.73m2 Moderately to severely decreased 30 - 44 mL/min/1.73m2 Severely decreased 15 - 29 mL/min/1.73m2 Kidney Failure < 15 mL/min/1.73m2 *Relative to young adult level Estimated glomerular filtration rate is determined by the 2020 CKD-EPI equation recommended by the National Kidney Foundation (A Unifying Approach to GFR Estimation: Recommendations of the NKF-ASK Task Force on Reassessing the Inclusion of Race in Diagnosing Kidney Disease, JASN 2020). The CKD-EPI equation should not be used for patients with unstable renal function and has not been validated in children and those over 70. Current interpretive data was last reviewed 2021. Blood 08/25/2025 3:32 AM CDT 08/25/2025 4:18 AM CDT us Angella Melendez NP LAB BLOOD ORDERABLES Final Result [facility] ([place]) 1 [facility] [place] [address] * (ABNORMAL) Differential, auto (08/25/2025 3:32 AM CDT) Neutrophil abs 9.31(H) 1.50 - 6.50 K/cumm Imm gran abs 0.04 0.00 - 0.10 K/cumm [facility] ([place]) Lymphocyte abs 1.11 0.80 - 3.30 K/cumm [facility] ([place]) Monocyte abs 0.89(H) 0.20 - 0.80 K/cumm [facility] ([place]) Eosinophil abs 0.12 0.00 - 0.50 K/cumm [facility] ([place]) Basophil abs 0.05 0.00 - 0.10 K/cumm [facility] ([place]) Neutrophil pct 81.0 % [facility] ([place]) Comment: Interpretive Data Percent cell count reference ranges are not reported, since discordance with absolute values may lead to misinterpretation of CBC data. Current Interpretive Data was last revised on 2018. Imm gran pct 0.3 % [facility] ([place]) Comment: Interpretive Data Percent cell count reference ranges are not reported, since discordance with absolute values may lead to misinterpretation of CBC data. Current Interpretive Data was last revised on 2018. Lymphocyte pct 9.6 % [facility] ([place]) Comment: Interpretive Data Percent cell count reference ranges are not reported, since discordance with absolute values may lead to misinterpretation of CBC data. Current Interpretive Data was last revised on 2018. Monocyte pct 7.7 % [facility] ([place]) Comment: Interpretive Data Percent cell count reference ranges are not reported, since discordance with absolute values may lead to misinterpretation of CBC data. Current Interpretive Data was last revised on 2018. Eosinophil pct 1.0 % [facility] ([place]) Comment: Interpretive Data Percent cell count reference ranges are not reported, since discordance with absolute values may lead to misinterpretation of CBC data. Current Interpretive Data was last revised on 2018. Basophil pct 0.4 % [facility] ([place]) Comment: Interpretive Data Percent cell count reference ranges are not reported, since discordance with absolute values may lead to misinterpretation of CBC data. Current Interpretive Data was last revised on 2018. Blood 08/25/2025 3:32 AM CDT 08/25/2025 4:18 AM CDT Angella Melendez [employer] LAB BLOOD ORDERABLES Final Result [facility] ([place]) 1 [facility] [place] [place] [address] * (ABNORMAL) CBC with auto differential (08/25/2025 3:32 AM CDT) Pathologist [facility] WBC 11.52(H) 3.80 - 9.90 K/cumm Hgb 9.7(L) 13.0 - 17.5 g/dL [facility] ([place]) Hct 31.6(L) 38.9 - 50.3 % [facility] ([place]) Plt 291 150 - 400 K/cumm [facility] ([place]) MPV 10.3 9.1 - 12.3 fL [facility] ([place]) RBC 3.71(L) 4.30 - 5.80 M/cumm [facility] ([place]) MCV 85.2 81.3 - 96.4 fL [facility] ([place]) MCH 26.1(L) 27.1 - 33.3 pg [facility] ([place]) MCHC 30.7(L) 32.3 - 35.7 g/dL [facility] ([place]) RDW CV 14.9 11.1 - 14.9 % [facility] ([place]) RDW SD 46.5 35.7 - 48.1 fL [facility] ([place]) NRBC abs 0.00 0.00 - 0.01 K/cumm [facility] ([place]) Blood 08/25/2025 3:32 AM CDT 08/25/2025 4:18 AM CDT Angella Melendez [employer] LAB BLOOD ORDERABLES Final Result [facility] ([place]) 1 [facility] [place] [place] [address] * (ABNORMAL) Comprehensive metabolic panel (08/25/2025 3:32 AM CDT) Sodium 139 135 - 145 mmol/L Potassium, pl 5.0(H) 3.3 - 4.9 mmol/L [facility] ([place]) Chloride 103 97 - 110 mmol/L [facility] ([place]) CO2 24 22 - 32 mmol/L [facility] ([place]) Anion gap 12 2 - 15 mmol/L [facility] ([place]) BUN 49(H) 6 - 25 mg/dL [facility] ([place]) Creatinine 4.22(H) 0.80 - 1.30 mg/dL [facility] ([place]) Glucose 218(H) 70 - 199 mg/dL [facility] ([place]) Comment: Interpretive Data Fasting glucose >/= 126 mg/dl is diagnostic for diabetes. Fasting is defined as no caloric intake for at least 8 hours. Fasting glucose between 100 mg/dl to 125 mg/dl is diagnostic of prediabetes. In a patient with classic symptoms of hyperglycemia or hyperglycemic crisis, a random glucose >/= 200 mg/dl is diagnostic for diabetes. In the absence of unequivocal hyperglycemia, results should be confirmed by repeat testing. The classification and Diagnosis of Diabetes Diabetes Care 2021; 46: S19-S40. Current interpretive data was last revised 2022. Calcium 8.9 8.5 - 10.3 mg/dL [facility] ([place]) Bilirubin, total 0.3 0.1 - 1.2 mg/dL [facility] ([place]) Protein, pl 6.0(L) 6.5 - 8.5 g/dL [facility] ([place]) Albumin 2.9(L) 3.5 - 5.0 g/dL [facility] ([place]) Alk phos 160(H) 40 - 130 Units/L [facility] ([place]) ALT 43 7 - 55 Units/L [facility] ([place]) AST 31 10 - 50 Units/L [facility] ([place]) Blood 08/25/2025 3:32 AM CDT 08/25/2025 4:18 AM CDT Angella Melendez NP LAB BLOOD ORDERABLES Final Result [facility] ([place]) 1 [facility] [place] [place] [address] * (ABNORMAL) POCT glucose (08/25/2025 2:21 AM CDT) Glucose, POC 233(H) 70 - 199 mg/dL Blood 08/25/2025 2:21 AM CDT 08/25/2025 2:21 AM CDT Liliana Mei MD LAB POCT ORDERABLES - DEVICE F inal Result Performing Organization Address [facility] Co de Phone Number [facility] ([place]) 1 [facility] [place] [address] * POCT glucose (08/24/2025 8:18 PM CDT) Glucose, POC 183 70 - 199 mg/dL Blood 08/24/2025 8:18 PM CDT 08/24/2025 8:18 PM CDT Liliana Mei MD LAB POCT ORDERABLES - DEVICE F inal Result Performing Organization Address [facility] Co de Phone Number [facility] ([place]) 1 [facility] [place] [address] * (ABNORMAL) POCT glucose (08/24/2025 4:32 PM CDT) Glucose, POC 202(H) 70 - 199 mg/dL Comment:Glu2: RN/MD Notified Blood 08/24/2025 4:32 PM CDT 08/24/2025 4:32 PM CDT us Liliana Mei MD LAB POCT ORDERABLES - DEVICE F inal Result [facility] ([place]) 1 [facility] [place] [address] * (ABNORMAL) POCT glucose (08/24/2025 11:09 AM CDT) Glucose, POC 271(H) 70 - 199 mg/dL Comment:Glu2: RN/ Notified Blood 08/24/2025 11:0 9 AM CDT 08/24/2025 11:09 AM CDT Liliana Mei MD LAB POCT ORDERABLES - DEVICE F inal Result [facility] ([place]) [address] [facility] [place] [place] [address] * (ABNORMAL) POCT glucose (08/24/2025 7:53 AM CDT) Glucose, POC 253(H) 70 - 199 mg/dL Comment:Glu2: RN/ Notified Blood 08/24/2025 7:53 AM CDT 08/24/2025 7:53 AM CDT Liliana Mei MD LAB POCT ORDERABLES - DEVICE F inal Result Performing Organization Address [facility] Co de Phone Number [facility] ([place]) [address] [place] [address] [place] [address] * (ABNORMAL) eGFR (08/24/2025 3:41 AM CDT) Pathologist [facility] eGFR 38(L) >=60 mL/min/1. 73 m2 Comment: Interpretive Data Reference Interval Normal >/= 90 mL/min/1.73m2 Mildly decreased* 60 - 89 mL/min/1.73m2 Mildly to moderately decreased 45 - 59 mL/min/1.73m2 Moderately to severely decreased 30 - 44 mL/min/1.73m2 Severely decreased 15 - 29 mL/min/1.73m2 Kidney Failure < 15 mL/min/1.73m2 *Relative to young adult level Estimated glomerular filtration rate is determined by the 2020 CKD-EPI equation recommended by the National Kidney Foundation (A Unifying Approach to GFR Estimation: Recommendations of the NKF-ASK Task Force on Reassessing the Inclusion of Race in Diagnosing Kidney Disease, JASN 2020). The CKD-EPI equation should not be used for patients with unstable renal function and has not been validated in children and those over 70. Current interpretive data was last reviewed 2021. Blood 08/24/2025 3:41 AM CDT 08/24/2025 4:16 AM CDT Angella Melendez NP LAB BLOOD ORDERABLES Final Result [facility] ([place]) 1 [facility] [place] [address] * (ABNORMAL) Differential, auto (08/24/2025 3:41 AM CDT) Neutrophil abs 10.07(H) 1.50 - 6.50 K/cumm Imm gran abs 0.05 0.00 - 0.10 K/cumm [facility] ([place]) Lymphocyte abs 0.99 0.80 - 3.30 K/cumm [facility] ([place]) Monocyte abs 1.05(H) 0.20 - 0.80 K/cumm [facility] ([place]) Eosinophil abs 0.14 0.00 - 0.50 K/cumm [facility] ([place]) Basophil abs 0.07 0.00 - 0.10 K/cumm [facility] ([place]) Neutrophil pct 81.4 % [facility] ([place]) Comment: Interpretive Data Percent cell count reference ranges are not reported, since discordance with absolute values may lead to misinterpretation of CBC data. Current Interpretive Data was last revised on 2018. Imm gran pct 0.4 % [facility] ([place]) Comment: Interpretive Data Percent cell count reference ranges are not reported, since discordance with absolute values may lead to misinterpretation of CBC data. Current Interpretive Data was last revised on 2018. Lymphocyte pct 8.0 % [facility] ([place]) Comment: Interpretive Data Percent cell count reference ranges are not reported, since discordance with absolute values may lead to misinterpretation of CBC data. Current Interpretive Data was last revised on 2018. Monocyte pct 8.5 % [facility] ([place]) Comment: Interpretive Data Percent cell count reference ranges are not reported, since discordance with absolute values may lead to misinterpretation of CBC data. Current Interpretive Data was last revised on 2018. Eosinophil pct 1.1 % [facility] ([place]) Comment: Interpretive Data Percent cell count reference ranges are not reported, since discordance with absolute values may lead to misinterpretation of CBC data. Current Interpretive Data was last revised on 2018. Basophil pct 0.6 % [facility] ([place]) Comment: Interpretive Data Percent cell count reference ranges are not reported, since discordance with absolute values may lead to misinterpretation of CBC data. Current Interpretive Data was last revised on 2018. Blood 08/24/2025 3:41 AM CDT 08/24/2025 4:16 AM CDT Angella Melendez VAPOR COATER LAB BLOOD ORDERABLES Final Result [facility] ([place]) 1 [facility] Department of Laboratories [place], [place] [id number] * (ABNORMAL) CBC with auto differential (08/24/2025 3:41 AM CDT) WBC 12.37(H) 3.80 - 9.90 K/cumm Hgb 11.3(L) 13.0 - 17.5 g/dL [facility] ([place]) Hct 36.4(L) 38.9 - 50.3 % [facility] ([place]) Plt 295 150 - 400 K/cumm [facility] ([place]) MPV 10.1 9.1 - 12.3 fL [facility] ([place]) RBC 4.30 4.30 - 5.80 M/cumm [facility] ([place]) MCV 84.7 81.3 - 96.4 fL [facility] ([place]) MCH 26.3(L) 27.1 - 33.3 pg [facility] ([place]) MCHC 31.0(L) 32.3 - 35.7 g/dL [facility] ([place]) RDW CV 14.8 11.1 - 14.9 % [facility] RDW SD 45.4 35.7 - 48.1 fL [facility] ([place]) NRBC abs 0.00 0.00 - 0.01 K/cumm [facility] ([place]) Blood 08/24/2025 3:41 AM CDT 08/24/2025 4:16 AM CDT us Angella Melendez NP LAB BLOOD ORDERABLES Final Result [facility] ([place]) 1 [facility] Department [place] [address] * (ABNORMAL) Comprehensive metabolic panel (08/24/2025 3:41 AM CDT) Sodium 138 135 - 145 mmol/L Potassium, pl 4.2 3.3 - 4.9 mmol/L [facility] ([place]) Chloride 104 97 - 110 mmol/L [facility] ([place]) CO2 22 22 - 32 mmol/L [facility] ([place]) Anion gap 12 2 - 15 mmol/L [facility] ([place]) BUN 32(H) 6 - 25 mg/dL [facility] ([place]) Creatinine 1.88(H) 0.80 - 1.30 mg/dL [facility] ([place]) Glucose 234(H) 70 - 199 mg/dL [facility] ([place]) Comment: Interpretive Data Fasting glucose >/= 126 mg/dl is diagnostic for diabetes. Fasting is defined as no caloric intake for at least 8 hours. Fasting glucose between 100 mg/dl to 125 mg/dl is diagnostic of prediabetes. In a patient with classic symptoms of hyperglycemia or hyperglycemic crisis, a random glucose >/= 200 mg/dl is diagnostic for diabetes. In the absence of unequivocal hyperglycemia, results should be confirmed by repeat testing. The classification and Diagnosis of Diabetes Diabetes Care 2021; 46: S19-S40. Current interpretive data was last revised 2022. Calcium 9.0 8.5 - 10.3 mg/dL [facility] ([place]) Bilirubin, total 0.4 0.1 - 1.2 mg/dL [facility] ([place]) Protein, pl 6.6 6.5 - 8.5 g/dL [facility] ([place]) Albumin 3.2(L) 3.5 - 5.0 g/dL [facility] ([place]) Alk phos 168(H) 40 - 130 Units/L [facility] ([place]) ALT 51 7 - 55 Units/L [facility] ([place]) AST 37 10 - 50 Units/L [facility] ([place]) Blood 08/24/2025 3:41 AM CDT 08/24/2025 4:16 AM CDT Angella Melendez NP LAB BLOOD ORDERABLES Final Result Performing Organization Address [facility]/ZIP Co de Phone Number KELVIN ONTIVER[facility] ([place]) 1 [facility] [place] [address] * (ABNORMAL) POCT glucose (08/24/2025 1:59 AM CDT) Glucose, POC 266(H) 70 - 199 mg/dL Blood 08/24/2025 1:59 AM CDT 08/24/2025 1:59 AM CDT Liliana Mei MD LAB POCT ORDERABLES - DEVICE F inal Result Performing Organization Address [facility]/[place] Co de Phone Number [facility]IN [facility] ([place]) 1 [facility] [place] [address] * (ABNORMAL) POCT glucose (08/23/2025 8:11 PM CDT) Glucose, POC 262(H) 70 - 199 mg/dL Blood 08/23/2025 8:11 PM CDT 08/23/2025 8:11 PM CDT Liliana Mei MD LAB POCT ORDERABLES - DEVICE F inal Result Performing Organization Address [facility]/[place] Co de Phone Number KELVIN ONTIVEROS ([place]) 1 [facility] [place] [address] * (ABNORMAL) POCT glucose (08/23/2025 4:38 PM CDT) Glucose, POC 229(H) 70 - 199 mg/dL Comment:Glu2: RN/ Notified Blood 08/23/2025 4:38 PM CDT 08/23/2025 4:38 PM CDT Liliana Mei MD LAB POCT ORDERABLES - DEVICE F inal Result Performing Organization Address City/[facility]/[place] Co de Phone Number KELVIN ONTIVEROS ([place]) 1 [facility] [place] [address] * (ABNORMAL) POCT glucose (08/23/2025 11:35 AM CDT) Glucose, POC 279(H) 70 - 199 mg/dL Comment:Glu2: RN/ Notified Blood 08/23/2025 11:3 5 AM CDT 08/23/2025 11:35 AM CDT Liliana Mei MD LAB POCT ORDERABLES - DEVICE F inal Result Performing Organization Address City/[facility]/[place] Co de Phone Number KELVIN ONTIVEROS ([place]) 1 [facility] [place] [address] * US Retroperitoneal Complete (08/23/2025 10:06 AM CDT) Anatomical Region Laterality Modality Abdomen N/A Ultrasound 08/23/2025 10:1 4 AM CDT Narrative 08/23/2025 10:22 AM CDT EXAM DESCRIPTION: US RETROPERITONEAL COMPLETE REASON FOR STUDY: Hydronephrosis TECHNIQUE: Ultrasound of the kidneys and urinary bladder was performed with grayscale imaging. COMPARISON: Renal ultrasound 08/02/2024 FINDINGS: RIGHT KIDNEY: The right kidney measures 14.4 cm in length. There is mild hydronephrosis. There is normal cortical thickness and echogenicity. LEFT KIDNEY: The left kidney measures 12.9 cm in length. There is no hydronephrosis. There is normal cortical thickness and echogenicity. There is a 1.5 x 0.9 x 1.7 cm anechoic avascular simple cyst. URINARY BLADDER: Decompressed by a Weems catheter and not well evaluated. OTHER: There is incidental note of solid-appearing lesions in the liver which are better evaluated on the recent CT abdomen pelvis from 08/06/2025. IMPRESSION: 1. Mild right hydronephrosis. 2. Incidental note of solid-appearing lesions in the liver. Recommend further evaluation with liver mass protocol MRI. THIS IS AN ELECTRONICALLY VERIFIED FINAL REPORT 08/23/2025 10:22 AM - Electronically signed by Rosendo De La Rosa M.D. AM: AM Report ID: [id number] Reading Location: [place] [address] Procedure Note Rosendo De La Rosa MD - 08/23/2025 EXAM DESCRIPTION: US RETROPERITONEAL COMPLETE REASON FOR STUDY: Hydronephrosis TECHNIQUE: Ultrasound of the kidneys and urinary bladder was performedwith grayscale imaging. COMPARISON: Renal ultrasound 08/02/2024 FINDINGS: RIGHT KIDNEY: The right kidney measures 14.4 cm in length. There is mild hydronephrosis. There is normal cortical thickness and echogenicity. LEFT KIDNEY: The left kidney measures 12.9 cm in length. There is no hydronephrosis. There is normal cortical thickness and echogenicity.There is a 1.5 x 0.9 x 1.7 cm anechoic avascular simple cyst. URINARY BLADDER: Decompressed by a Weems catheter and not wellevaluated. OTHER: There is incidental note of solid-appearing lesions in the liver which are better evaluated on the recent CT abdomen pelvis from08/06/2025. IMPRESSION: 1. Mild right hydronephrosis. 2. Incidental note of solid-appearing lesions in the liver. Recommend further evaluation with liver mass protocol MRI. THIS IS AN ELECTRONICALLY VERIFIED FINAL REPORT 08/23/2025 10:22 AM - Electronically signed by Rosendo De La Rosa M.D. AM: AM Report ID: [id number] Reading Location: [id number] us Joseph Sterling VAPOR COATER IMG US PROCEDURES Final Resu lt * (ABNORMAL) POCT glucose (08/23/2025 8:00 AM CDT) Glucose, POC 264(H) 70 - 199 mg/dL Comment:Glu2: RN/MD Notified Blood 08/23/2025 8:00 AM CDT 08/23/2025 8:00 AM CDT us Liliana Mei MD LAB POCT ORDERABLES - DEVICE F inal Result [facility] ([place]) 1 [facility] Department [place] [address] * (ABNORMAL) eGFR (08/23/2025 3:52 AM CDT) eGFR 38(L) >=60 mL/min/1. 73 m2 Comment: Interpretive Data Reference Interval Normal >/= 90 mL/min/1.73m2 Mildly decreased* 60 - 89 mL/min/1.73m2 Mildly to moderately decreased 45 - 59 mL/min/1.73m2 Moderately to severely decreased 30 - 44 mL/min/1.73m2 Severely decreased 15 - 29 mL/min/1.73m2 Kidney Failure < 15 mL/min/1.73m2 *Relative to young adult level Estimated glomerular filtration rate is determined by the 2020 CKD-EPI equation recommended by the National Kidney Foundation (A Unifying Approach to GFR Estimation: Recommendations of the NKF-ASK Task Force on Reassessing the Inclusion of Race in Diagnosing Kidney Disease, JASN 202). The CKD-EPI equation should not be used for patients with unstable renal function and has not been validated in children and those over 70. Current interpretive data was last reviewed 2021. Blood 08/23/2025 3:52 AM CDT 08/23/2025 3:59 AM CDT us Angella Melendez VAPOR COATER LAB BLOOD ORDERABLES Final Result [facility] ([place]) 1 [facility] Department [place] [address] * (ABNORMAL) Differential, auto (08/23/2025 3:52 AM CDT) Neutrophil abs 9.01(H) 1.50 - 6.50 K/cumm Imm gran abs 0.07 0.00 - 0.10 K/cumm [facility] ([place]) Lymphocyte abs 1.04 0.80 - 3.30 K/cumm [facility] ([place]) Monocyte abs 0.96(H) 0.20 - 0.80 K/cumm [facility] ([place]) Eosinophil abs 0.18 0.00 - 0.50 K/cumm [facility] ([place]) Basophil abs 0.04 0.00 - 0.10 K/cumm [facility] ([place]) Neutrophil pct 79.7 % [facility] ([place]) Comment: Interpretive Data Percent cell count reference ranges are not reported, since discordance with absolute values may lead to misinterpretation of CBC data. Current Interpretive Data was last revised on 2018. Imm gran pct 0.6 % [facility] ([place]) Comment: Interpretive Data Percent cell count reference ranges are not reported, since discordance with absolute values may lead to misinterpretation of CBC data. Current Interpretive Data was last revised on 2018. Lymphocyte pct 9.2 % [facility] ([place]) Comment: Interpretive Data Percent cell count reference ranges are not reported, since discordance with absolute values may lead to misinterpretation of CBC data. Current Interpretive Data was last revised on 2018. Monocyte pct 8.5 % [facility] ([place]) Comment: Interpretive Data Percent cell count reference ranges are not reported, since discordance with absolute values may lead to misinterpretation of CBC data. Current Interpretive Data was last revised on 2018. Eosinophil pct 1.6 % [facility] ([place]) Comment: Interpretive Data Percent cell count reference ranges are not reported, since discordance with absolute values may lead to misinterpretation of CBC data. Current Interpretive Data was last revised on 2018. Basophil pct 0.4 % [facility] ([place]) Comment: Interpretive Data Percent cell count reference ranges are not reported, since discordance with absolute values may lead to misinterpretation of CBC data. Current Interpretive Data was last revised on 2018. Blood 08/23/2025 3:52 AM CDT 08/23/2025 3:59 AM CDT us Angella Melendez NP LAB BLOOD ORDERABLES Final Result [facility] 1 [facility] Department [place] [address] * (ABNORMAL) CBC with auto differential (08/23/2025 3:52 AM CDT) WBC 11.30(H) 3.80 - 9.90 K/cumm Hgb 11.0(L) 13.0 - 17.5 g/dL [facility] ([place]) Hct 35.5(L) 38.9 - 50.3 % [facility] ([place]) Plt 264 150 - 400 K/cumm [facility] ([place]) MPV 9.9 9.1 - 12.3 fL [facility] ([place]) RBC 4.16(L) 4.30 - 5.80 M/cumm [facility] ([place]) MCV 85.3 81.3 - 96.4 fL [facility] ([place]) MCH 26.4(L) 27.1 - 33.3 pg [facility] ([place]) MCHC 31.0(L) 32.3 - 35.7 g/dL [facility] ([place]) RDW CV 14.9 11.1 - 14.9 % [facility] ([place]) RDW SD 46.2 35.7 - 48.1 fL [facility] ([place]) NRBC abs 0.00 0.00 - 0.01 K/cumm [facility] ([place]) Blood 08/23/2025 3:52 AM CDT 08/23/2025 3:59 AM CDT us Angella Melendez NP LAB BLOOD ORDERABLES Final Result [facility] ([place]) 1 [facility] Department [place] [address] * (ABNORMAL) Comprehensive metabolic panel (08/23/2025 3:52 AM CDT) Sodium 139 135 - 145 mmol/L Potassium, pl 4.3 3.3 - 4.9 mmol/L [facility] ([place]) Chloride 104 97 - 110 mmol/L [facility] ([place]) CO2 26 22 - 32 mmol/L [facility] ([place]) Anion gap 9 2 - 15 mmol/L [facility] ([place]) BUN 31(H) 6 - 25 mg/dL [facility] ([place]) Creatinine 1.86(H) 0.80 - 1.30 mg/dL [facility] ([place]) Glucose 236(H) 70 - 199 mg/dL [facility] ([place]) Comment: Interpretive Data Fasting glucose >/= 126 mg/dl is diagnostic for diabetes. Fasting is defined as no caloric intake for at least 8 hours. Fasting glucose between 100 mg/dl to 125 mg/dl is diagnostic of prediabetes. In a patient with classic symptoms of hyperglycemia or hyperglycemic crisis, a random glucose >/= 200 mg/dl is diagnostic for diabetes. In the absence of unequivocal hyperglycemia, results should be confirmed by repeat testing. The classification and Diagnosis of Diabetes Diabetes Care 2021; 46: S19-S40. Current interpretive data was last revised 2022. Calcium 9.0 8.5 - 10.3 mg/dL [facility] ([place]) Bilirubin, total 0.4 0.1 - 1.2 mg/dL [facility] ([place]) Protein, pl 6.4(L) 6.5 - 8.5 g/dL [facility] ([place]) Albumin 3.2(L) 3.5 - 5.0 g/dL [facility] ([place]) Alk phos 155(H) 40 - 130 Units/L [facility] ([place]) ALT 44 7 - 55 Units/L [facility] ([place]) AST 28 10 - 50 Units/L [facility] ([place]) Blood 08/23/2025 3:52 AM CDT 08/23/2025 3:59 AM CDT Angella Melendez VAPOR [employer]ATER LAB BLOOD ORDERABLES Final Result Performing Organization Address City/[facility]/ZIP Co de Phone Number [facility]IN ONTIVEROS ([place]) 1 [facility] [place] [address] * (ABNORMAL) POCT glucose (08/23/2025 2:37 AM CDT) Glucose, POC 204(H) 70 - 199 mg/dL Blood 08/23/2025 2:37 AM CDT 08/23/2025 2:37 AM CDT Liliana Mei MD LAB POCT ORDERABLES - DEVICE F inal Result Performing Organization Address City/[facility]/[place] Co de Phone Number K[facility]IN ONTIVER[facility] ([place]) 1 [facility] [place] [address] * (ABNORMAL) POCT glucose (08/22/2025 11:49 PM CDT) Glucose, POC 218(H) 70 - 199 mg/dL Blood 08/22/2025 11:4 9 PM CDT 08/22/2025 11:49 PM CDT Liliana Mei MD LAB POCT ORDERABLES - DEVICE F inal Result Performing Organization Address [facility]/ZIP Co de Phone Number KELVIN ONTIVEROS ([place]) 1 [facility] [email or web address] [address] * (ABNORMAL) POCT glucose (08/22/2025 10:09 PM CDT) Glucose, POC 364(H) 70 - 199 mg/dL Blood 08/22/2025 10:0 9 PM CDT 08/22/2025 10:09 PM CDT Liliana Mei MD LAB POCT ORDERABLES - DEVICE F inal Result Performing Organization Address [facility]/[place] Co de Phone Number KELVIN ONTIVEROS ([place]) 1 [facility] [place] [address] * (ABNORMAL) POCT glucose (08/22/2025 8:12 PM CDT) Glucose, POC 331(H) 70 - 199 mg/dL Blood 08/22/2025 8:12 PM CDT 08/22/2025 8:12 PM CDT Liliana Mei MD LAB POCT ORDERABLES - DEVICE F inal Result Performing Organization Address [facility] de Phone Number KELVIN ONTIVEROS ([place]) 1 [facility] [place] [address] * (ABNORMAL) POCT glucose (08/22/2025 4:29 PM CDT) Glucose, POC 274(H) 70 - 199 mg/dL Comment:Glu2: RN/MD Notified Blood 08/22/2025 4:29 PM CDT 08/22/2025 4:29 PM CDT Liliana Mei MD LAB POCT ORDERABLES - DEVICE F inal Result Performing Organization Address [facility]/[place] Co de Phone Number KELVIN [facility] ([place]) 1 [facility] [place] [address] * (ABNORMAL) POCT glucose (08/22/2025 11:46 AM CDT) Glucose, POC 237(H) 70 - 199 mg/dL Blood 08/22/2025 11:4 6 AM CDT 08/22/2025 11:46 AM CDT us Liliana Mei MD LAB POCT ORDERABLES - DEVICE F inal Result KELVIN ONTIVEROS ([place]) 1 [facility] [place] [address] * (ABNORMAL) POCT glucose (08/22/2025 7:37 AM CDT) Glucose, POC 274(H) 70 - 199 mg/dL Blood 08/22/2025 7:37 AM CDT 08/22/2025 7:37 AM CDT us Liliana Mei MD LAB POCT ORDERABLES - DEVICE F inal Result Performing Organization Address [facility]/[place] Co de Phone Number KELVIN ONTIVEROS ([place]) 1 [facility] [place] [address] * (ABNORMAL) eGFR (08/22/2025 4:46 AM CDT) eGFR 55(L) >=60 mL/min/1. 73 m2 Comment: Interpretive Data Reference Interval Normal >/= 90 mL/min/1.73m2 Mildly decreased* 60 - 89 mL/min/1.73m2 Mildly to moderately decreased 45 - 59 mL/min/1.73m2 Moderately to severely decreased 30 - 44 mL/min/1.73m2 Severely decreased 15 - 29 mL/min/1.73m2 Kidney Failure < 15 mL/min/1.73m2 *Relative to young adult level Estimated glomerular filtration rate is determined by the 2020 CKD-EPI equation recommended by the National Kidney Foundation (A Unifying Approach to GFR Estimation: Recommendations of the NKF-ASK Task Force on Reassessing the Inclusion of Race in Diagnosing Kidney Disease, JASN 2020). The CKD-EPI equation should not be used for patients with unstable renal function and has not been validated in children and those over 70. Current interpretive data was last reviewed 2021. Blood 08/22/2025 4:46 AM CDT 08/22/2025 4:58 AM CDT us Angella Melendez VAPOR COATER LAB BLOOD ORDERABLES Final Result K[facility]IN ONTIVEROS ([place]) 1 [facility] Department [place] [address] * (ABNORMAL) Differential, auto (08/22/2025 4:46 AM CDT) Neutrophil abs 10.05(H) 1.50 - 6.50 K/cumm Imm gran abs 0.06 0.00 - 0.10 K/cumm [facility] ([place]) Lymphocyte abs 1.03 0.80 - 3.30 K/cumm [facility] ([place]) Monocyte abs 1.00(H) 0.20 - 0.80 K/cumm [facility] ([place]) Eosinophil abs 0.16 0.00 - 0.50 K/cumm [facility] ([place]) Basophil abs 0.04 0.00 - 0.10 K/cumm [facility] ([place]) Neutrophil pct 81.5 % [facility] ([place]) Comment: Interpretive Data Percent cell count reference ranges are not reported, since discordance with absolute values may lead to misinterpretation of CBC data. Current Interpretive Data was last revised on 2018. Imm gran pct 0.5 % [facility] ([place]) Comment: Interpretive Data Percent cell count reference ranges are not reported, since discordance with absolute values may lead to misinterpretation of CBC data. Current Interpretive Data was last revised on 2018. Lymphocyte pct 8.3 % [facility] ([place]) Comment: Interpretive Data Percent cell count reference ranges are not reported, since discordance with absolute values may lead to misinterpretation of CBC data. Current Interpretive Data was last revised on 2018. Monocyte pct 8.1 % [facility] ([place]) Comment: Interpretive Data Percent cell count reference ranges are not reported, since discordance with absolute values may lead to misinterpretation of CBC data. Current Interpretive Data was last revised on 2018. Eosinophil pct 1.3 % [facility] ([place]) Comment: Interpretive Data Percent cell count reference ranges are not reported, since discordance with absolute values may lead to misinterpretation of CBC data. Current Interpretive Data was last revised on 2018. Basophil pct 0.3 % [facility] ([place]) Comment: Interpretive Data Percent cell count reference ranges are not reported, since discordance with absolute values may lead to misinterpretation of CBC data. Current Interpretive Data was last revised on 2018. Blood 08/22/2025 4:46 AM CDT 08/22/2025 4:58 AM CDT Angella Melendez VAPOR COATER LAB BLOOD ORDERABLES Final Result [facility] ([place]) 1 [facility] [place] [address] * (ABNORMAL) CBC with auto differential (08/22/2025 4:46 AM CDT) WBC 12.34(H) 3.80 - 9.90 K/cumm Hgb 11.5(L) 13.0 - 17.5 g/dL [facility] ([place]) Hct 37.0(L) 38.9 - 50.3 % [facility] ([place]) Plt 261 150 - 400 K/cumm [facility] ([place]) MPV 10.1 9.1 - 12.3 fL [facility] ([place]) RBC 4.33 4.30 - 5.80 M/cumm [facility] ([place]) MCV 85.5 81.3 - 96.4 fL [facility] ([place]) MCH 26.6(L) 27.1 - 33.3 pg [facility] ([place]) MCHC 31.1(L) 32.3 - 35.7 g/dL [facility] ([place]) RDW CV 14.8 11.1 - 14.9 % [facility] ([place]) RDW SD 46.7 35.7 - 48.1 fL [facility] ([place]) NRBC abs 0.00 0.00 - 0.01 K/cumm [facility] ([place]) Blood 08/22/2025 4:46 AM CDT 08/22/2025 4:58 AM CDT Angella Melendez NP LAB BLOOD ORDERABLES Final Result Performing Organization Address City/[facility]/[place] Co de Phone Number KELVIN ONTIVEROS ([place]) 1 [facility] [email or web address] [address] * (ABNORMAL) Hemoglobin A1c (08/22/2025 4:46 AM CDT) Hgb A1C 10.0(H) 4.0 - 5.6 % Estimated Average Glucose 240 mg/dL [facility] ([place]) Comment: The ADA recommends reporting an estimated Average Glucose (eAG) with all Hemoglobin A1c results using the equation derived from a study of 507 normal and diabetic adults. Minority populations were underrepresented and children were not included. (Diabetes Care 31:4068-8964, 2008). The eAG is not equivalent to a fasting glucose. Blood 08/22/2025 4:46 AM CDT 08/22/2025 4:58 AM CDT Angella Melendez NP LAB BLOOD ORDERABLES Final Result Performing Organization Address [facility]/[place] Co de Phone Number KELVIN ONTIVEROS ([place]) 1 [facility] [email or web address] [address] * (ABNORMAL) Comprehensive metabolic panel (08/22/2025 4:46 AM CDT) [facility] Sodium 137 135 - 145 mmol/L Potassium, pl 4.3 3.3 - 4.9 mmol/L [facility] ([place]) Chloride 103 97 - 110 mmol/L [facility] ([place]) CO2 24 22 - 32 mmol/L [facility] ([place]) Anion gap 10 2 - 15 mmol/L [facility] ([place]) BUN 30(H) 6 - 25 mg/dL [facility] ([place]) Creatinine 1.39(H) 0.80 - 1.30 mg/dL [facility] ([place]) Glucose 240(H) 70 - 199 mg/dL [facility] ([place]) Comment: Interpretive Data Fasting glucose >/= 126 mg/dl is diagnostic for diabetes. Fasting is defined as no caloric intake for at least 8 hours. Fasting glucose between 100 mg/dl to 125 mg/dl is diagnostic of prediabetes. In a patient with classic symptoms of hyperglycemia or hyperglycemic crisis, a random glucose >/= 200 mg/dl is diagnostic for diabetes. In the absence of unequivocal hyperglycemia, results should be confirmed by repeat testing. The classification and Diagnosis of Diabetes Diabetes Care 2021; 46: S19-S40. Current interpretive data was last revised 2022. Calcium 9.0 8.5 - 10.3 mg/dL [facility] ([place]) Bilirubin, total 0.4 0.1 - 1.2 mg/dL [facility] ([place]) Protein, pl 6.4(L) 6.5 - 8.5 g/dL [facility] ([place]) Albumin 3.1(L) 3.5 - 5.0 g/dL [facility] ([place]) Alk phos 138(H) 40 - 130 Units/L [facility] ([place]) ALT 49 7 - 55 Units/L [facility] ([place]) AST 24 10 - 50 Units/L [facility] ([place]) Blood 08/22/2025 4:46 AM CDT 08/22/2025 4:58 AM CDT us Angella Melendez NP LAB BLOOD ORDERABLES Final Result KELVIN ONTIVEROS ([place]) 1 [facility] [place] [address] * (ABNORMAL) POCT glucose (08/22/2025 2:03 AM CDT) [facility] Signature Glucose, POC 205(H) 70 - 199 mg/dL Blood 08/22/2025 2:03 AM CDT 08/22/2025 2:03 AM CDT us Liliana Mei MD LAB POCT ORDERABLES - DEVICE F inal Result KELIVN ONTIVEROS ([place]) 1 [facility] [place] [address] * (ABNORMAL) POCT glucose (08/21/2025 10:32 PM CDT) Glucose, POC 287(H) 70 - 199 mg/dL Blood 08/21/2025 10:3 2 PM CDT 08/21/2025 10:32 PM CDT Liliana Mei MD LAB POCT ORDERABLES - DEVICE F inal Result Performing Organization Address [facility]/ZIP Co de Phone Number [facility] ([place]) 1 [facility] [place] [address] * (ABNORMAL) POCT glucose (08/21/2025 9:34 PM CDT) Pathologist [facility] Glucose, POC 303(H) 70 - 199 mg/dL Blood 08/21/2025 9:34 PM CDT 08/21/2025 9:34 PM CDT Liliana Mei MD LAB POCT ORDERABLES - DEVICE F inal Result Performing Organization Address [facility]/[place] Co de Phone Number [facility] ([place]) 1 [facility] [place] [address] * (ABNORMAL) Differential, auto (08/21/2025 8:36 PM CDT) Neutrophil abs 10.10(H) 1.50 - 6.50 K/cumm Imm gran abs 0.04 0.00 - 0.10 K/cumm [facility] ([place]) Lymphocyte abs 0.95 0.80 - 3.30 K/cumm [facility] ([place]) Monocyte abs 1.04(H) 0.20 - 0.80 K/cumm [facility] ([place]) Eosinophil abs 0.16 0.00 - 0.50 K/cumm [facility] ([place]) Basophil abs 0.04 0.00 - 0.10 K/cumm [facility] ([place]) Neutrophil pct 82.0 % [facility] ([place]) Comment: Interpretive Data Percent cell count reference ranges are not reported, since discordance with absolute values may lead to misinterpretation of CBC data. Current Interpretive Data was last revised on 2018. Imm gran pct 0.3 % [facility] ([place]) Comment: Interpretive Data Percent cell count reference ranges are not reported, since discordance with absolute values may lead to misinterpretation of CBC data. Current Interpretive Data was last revised on 2018. Lymphocyte pct 7.7 % [facility] ([place]) Comment: Interpretive Data Percent cell count reference ranges are not reported, since discordance with absolute values may lead to misinterpretation of CBC data. Current Interpretive Data was last revised on 2018. Monocyte pct 8.4 % [facility] ([place]) Comment: Interpretive Data Percent cell count reference ranges are not reported, since discordance with absolute values may lead to misinterpretation of CBC data. Current Interpretive Data was last revised on 2018. Eosinophil pct 1.3 % [facility] ([place]) Comment: Interpretive Data Percent cell count reference ranges are not reported, since discordance with absolute values may lead to misinterpretation of CBC data. Current Interpretive Data was last revised on 2018. Basophil pct 0.3 % [facility] ([place]) Comment: Interpretive Data Percent cell count reference ranges are not reported, since discordance with absolute values may lead to misinterpretation of CBC data. Current Interpretive Data was last revised on 2018. Blood 08/21/2025 8:36 PM CDT 08/21/2025 8:44 PM CDT Angella Melendez NP LAB BLOOD ORDERABLES Final Result [facility] ([place]) 1 [facility] [place] [address] * (ABNORMAL) CBC with auto differential (08/21/2025 8:36 PM CDT) WBC 12.33(H) 3.80 - 9.90 K/cumm Hgb 11.2(L) 13.0 - 17.5 g/dL [facility] ([place]) Hct 35.9(L) 38.9 - 50.3 % [facility] ([place]) Plt 260 150 - 400 K/cumm [facility] ([place]) MPV 10.1 9.1 - 12.3 fL [facility] ([place]) RBC 4.22(L) 4.30 - 5.80 M/cumm [facility] ([place]) MCV 85.1 81.3 - 96.4 fL [facility] ([place]) MCH 26.5(L) 27.1 - 33.3 pg [facility] ([place]) MCHC 31.2(L) 32.3 - 35.7 g/dL [facility] ([place]) RDW CV 14.7 11.1 - 14.9 % [facility] ([place]) RDW SD 45.0 35.7 - 48.1 fL [facility] ([place]) NRBC abs 0.00 0.00 - 0.01 K/cumm [facility] ([place]) Blood 08/21/2025 8:36 PM CDT 08/21/2025 8:44 PM CDT Angella Melendez NP LAB BLOOD ORDERABLES Final Result [facility] ([place]) 1 [facility] [place] [address] * (ABNORMAL) POCT glucose (08/21/2025 7:51 PM CDT) Glucose, POC 337(H) 70 - 199 mg/dL Blood 08/21/2025 7:51 PM CDT 08/21/2025 7:51 PM CDT Liliana Mei MD LAB POCT ORDERABLES - DEVICE F inal Result [facility] ([place]) 1 [facility] [place] [address] * (ABNORMAL) POCT glucose (08/21/2025 4:35 PM CDT) Glucose, POC 295(H) 70 - 199 mg/dL Blood 08/21/2025 4:35 PM CDT 08/21/2025 4:35 PM CDT Lilaina Mei MD LAB POCT ORDERABLES - DEVICE F inal Result [facility] ([place]) 1 [facility] [place] [address] * (ABNORMAL) Iron profile w/ IBC (08/21/2025 3:34 PM CDT) Iron 17(L) 50 - 150 mcg/dL TIBC 198(L) 250 - 400 mcg/dL [facility] ([place]) Transferrin saturation 9(L) 20 - 50 % [facility] ([place]) Blood 08/21/2025 3:34 PM CDT 08/21/2025 3:40 PM CDT Angella Melendez NP LAB BLOOD ORDERABLES Final Result Performing Organization Address City/[facility]/ZIP Co de Phone Number [facility] ([place]) 1 [facility] [email or web address] [address] * Folate (08/21/2025 3:34 PM CDT) Folic acid 13.3 >=5.0 ng/mL Blood 08/21/2025 3:34 PM CDT 08/21/2025 3:40 PM CDT Angella Melendez NP LAB BLOOD ORDERABLES Final Result [facility] ([place]) 1 [facility] [place] [address] * Ferritin (08/21/2025 3:34 PM CDT) Pathologist [facility] Ferritin 209 30 - 400 ng/mL Blood 08/21/2025 3:34 PM CDT 08/21/2025 3:40 PM CDT Angella Melendez [facility] LAB BLOOD ORDERABLES Final Result [facility] ([place]) 1 [place] [address] * Vitamin B12 (08/21/2025 3:34 PM CDT) Pathologist [facility] Vitamin B12 410 230 - 1,250 pg/mL Blood 08/21/2025 3:34 PM CDT 08/21/2025 3:40 PM CDT Angella Marie Melendez [facility] [employer] LAB BLOOD ORDERABLES Final Result Performing Organization Address [facility]/[place] Co de Phone Number [facility] ([place]) 1 [place] [address] * (ABNORMAL) POCT glucose (08/21/2025 12:15 PM CDT) Pathologist [facility] Glucose, POC 224(H) 70 - 199 mg/dL Comment:Glu2: RN/ Notified Blood 08/21/2025 12:1 5 PM CDT 08/21/2025 12:15 PM CDT Liliana Mei MD LAB POCT ORDERABLES - DEVICE F inal Result Performing Organization Address [facility]/ZIP Co de Phone Number [facility] ([place]) [address] [facility] [place] [address] * Urine culture Urine, bladder (08/21/2025 12:08 PM CDT) Report Final Report: Less than 100,000 colonies/mL (clinically insignificant growth based on current clinical standards) Comment:Testing performed by : [facility], 1 [facility], [place]., [address] Organism (CLINICALLY INSIGNIFICANT GROWTH [facility] ([place]) Urine, bladder 08/21/2025 12 :08 PM CDT 08/21/2025 3:40 PM CDT Narrative [facility] ([place]) - 08/22/2025 4:45 PM CDT Indications for Culture:->Urology patient Testing performed by [facility] ([phone]) us Joseph Sterling [facility] LAB MICROBIOLOGY - GENERAL O RDERABLES Final Result Performing Organization Address [facility]/ZIP Co de Phone Number [facility] ([place]) 1 [facility] [place] [address] * (ABNORMAL) eGFR (08/21/2025 9:14 AM CDT) eGFR 49(L) >=60 mL/min/1. 73 m2 Comment: Interpretive Data Reference Interval Normal >/= 90 mL/min/1.73m2 Mildly decreased* 60 - 89 mL/min/1.73m2 Mildly to moderately decreased 45 - 59 mL/min/1.73m2 Moderately to severely decreased 30 - 44 mL/min/1.73m2 Severely decreased 15 - 29 mL/min/1.73m2 Kidney Failure < 15 mL/min/1.73m2 *Relative to young adult level Estimated glomerular filtration rate is determined by the 2020 CKD-EPI equation recommended by the National Kidney Foundation (A Unifying Approach to GFR Estimation: Recommendations of the NKF-ASK Task Force on Reassessing the Inclusion of Race in Diagnosing Kidney Disease, JASN 202). The CKD-EPI equation should not be used for patients with unstable renal function and has not been validated in children and those over 70. Current interpretive data was last reviewed 2021. Blood 08/21/2025 9:14 AM CDT 08/21/2025 9:20 AM CDT us Aline Monroy [facility] [employer] LAB BLOOD ORDERABLES Final Re sult [facility] ([place]) 1 [facility] [place] [address] * (ABNORMAL) Differential, auto (08/21/2025 9:14 AM CDT) Neutrophil abs 10.02(H) 1.50 - 6.50 K/cumm Imm gran abs 0.05 0.00 - 0.10 K/cumm [facility] ([place]) Lymphocyte abs 0.97 0.80 - 3.30 K/cumm [facility] ([place]) Monocyte abs 1.00(H) 0.20 - 0.80 K/cumm [facility] ([place]) Eosinophil abs 0.18 0.00 - 0.50 K/cumm [facility] ([place]) Basophil abs 0.04 0.00 - 0.10 K/cumm [facility] ([place]) Neutrophil pct 81.7 % [facility] ([place]) Comment: Interpretive Data Percent cell count reference ranges are not reported, since discordance with absolute values may lead to misinterpretation of CBC data. Current Interpretive Data was last revised on 2018. Imm gran pct 0.4 % [facility] ([place]) Comment: Interpretive Data Percent cell count reference ranges are not reported, since discordance with absolute values may lead to misinterpretation of CBC data. Current Interpretive Data was last revised on 2018. Lymphocyte pct 7.9 % [facility] ([place]) Comment: Interpretive Data Percent cell count reference ranges are not reported, since discordance with absolute values may lead to misinterpretation of CBC data. Current Interpretive Data was last revised on 2018. Monocyte pct 8.2 % [facility] ([place]) Comment: Interpretive Data Percent cell count reference ranges are not reported, since discordance with absolute values may lead to misinterpretation of CBC data. Current Interpretive Data was last revised on 2018. Eosinophil pct 1.5 % [facility] ([place]) Comment: Interpretive Data Percent cell count reference ranges are not reported, since discordance with absolute values may lead to misinterpretation of CBC data. Current Interpretive Data was last revised on 2018. Basophil pct 0.3 % [facility] ([place]) Comment: Interpretive Data Percent cell count reference ranges are not reported, since discordance with absolute values may lead to misinterpretation of CBC data. Current Interpretive Data was last revised on 2018. Blood 08/21/2025 9:14 AM CDT 08/21/2025 9:20 AM CDT Aline Monroy [employer] LAB BLOOD ORDERABLES Final Re sult Performing Organization Address [facility]/ZIP Co de Phone Number [facility] ([place]) 1 [facility] Department [place] [address] * (ABNORMAL) Urinalysis reflex to microscopic and culture Urine (08/21/2025 9:14 AM CDT) Color, ur Yellow Yellow Clarity, ur Clear Clear [facility] ([place]) Specific gravity, ur 1.024 1.003 - 1.030 [facility] ([place]) pH, urine 5.5 [facility] ([place]) Comment: Interpretive Data U rine pH is affected by diet, medications, systemic acid-base disturbances, and renal tubular function. pH may affect urinary stone formation. For example, urine pH below 6.0 may help reduce the tendency for calcium phosphate stones and pH greater than 6.0 may reduce the tendency for uric acid stone formation. Source: [facility] [email or web address] Current Interpretive Data was last revised on 2017 Protein, ur ql 1+(A) Negative [facility] ([place]) Glucose, ur ql 4+(A) Negative [facility] ([place]) Ketones, ur Negative Negative [facility] ([place]) Bilirubin, ur Negative Negative [facility] ([place]) Blood, ur 1+(A) Negative [facility] ([place]) Urobilinogen, ur <2.0 <2.0 mg/dL [facility] ([place]) Nitrite, ur Negative Negative [facility] ([place]) Leukocyte esterase, ur Negative Negative [facility] ([place]) UA reflex comment Reflex to microscopic UA will be performed. [facility] ([place]) Urine 08/21/2025 9:14 AM CDT 08/21/2025 9:19 AM CDT us Aline Monroy NP LAB MICROBIOLOGY - GENERAL OR DERABLES Final Result [facility] ([place]) 1 [facility] [place] [address] * (ABNORMAL) CBC with auto differential (08/21/2025 9:14 AM CDT) Pathologist [facility] WBC 12.26(H) 3.80 - 9.90 K/cumm Hgb 11.9(L) 13.0 - 17.5 g/dL [facility] ([place]) Hct 37.1(L) 38.9 - 50.3 % [facility] ([place]) Plt 265 150 - 400 K/cumm [facility] ([place]) MPV 10.3 9.1 - 12.3 fL [facility] ([place]) RBC 4.39 4.30 - 5.80 M/cumm [facility] ([place]) MCV 84.5 81.3 - 96.4 fL [facility] ([place]) MCH 27.1 27.1 - 33.3 pg [facility] ([place]) MCHC 32.1(L) 32.3 - 35.7 g/dL [facility] ([place]) RDW CV 14.7 11.1 - 14.9 % [facility] ([place]) RDW SD 45.5 35.7 - 48.1 fL [facility] ([place]) NRBC abs 0.00 0.00 - 0.01 K/cumm [facility] ([place]) Blood 08/21/2025 9:14 AM CDT 08/21/2025 9:20 AM CDT Aline Monroy NP LAB BLOOD ORDERABLES Final Re sult [facility] ([place]) 1 [facility] [place] [address] * (ABNORMAL) Urinalysis, microscopic only (08/21/2025 9:14 AM CDT) Pathologist [facility] WBC, ur 6-10(A) 0 - 5 /HPF RBC, ur 11-20(A) 0 - 2 /HPF [facility] ([place]) Culture Reflex Comment Reflex conditions for urine culture (WBC >10) not met. [facility] ([place]) Urine 08/21/2025 9:14 AM CDT 08/21/2025 9:19 AM CDT us Aline Monroy NP LAB URINE ORDERABLES Final Re sult [facility] ([place]) 1 [facility] [place] [address] * (ABNORMAL) Comprehensive metabolic panel (08/21/2025 9:14 AM CDT) Sodium 139 135 - 145 mmol/L Potassium, pl 3.7 3.3 - 4.9 mmol/L [facility] ([place]) Chloride 102 97 - 110 mmol/L [facility] ([place]) CO2 27 22 - 32 mmol/L [facility] ([place]) Anion gap 10 2 - 15 mmol/L [facility] ([place]) BUN 29(H) 6 - 25 mg/dL [facility] ([place]) Creatinine 1.51(H) 0.80 - 1.30 mg/dL [facility] ([place]) Glucose 268(H) 70 - 199 mg/dL [facility] ([place]) Comment: Interpretive Data Fasting glucose >/= 126 mg/dl is diagnostic for diabetes. Fasting is defined as no caloric intake for at least 8 hours. Fasting glucose between 100 mg/dl to 125 mg/dl is diagnostic of prediabetes. In a patient with classic symptoms of hyperglycemia or hyperglycemic crisis, a random glucose >/= 200 mg/dl is diagnostic for diabetes. In the absence of unequivocal hyperglycemia, results should be confirmed by repeat testing. The classification and Diagnosis of Diabetes Diabetes Care 202; 46: S19-S40. Current interpretive data was last revised 2022. Calcium 9.4 8.5 - 10.3 mg/dL [facility] ([place]) Bilirubin, total 0.6 0.1 - 1.2 mg/dL [facility] ([place]) Protein, pl 6.3(L) 6.5 - 8.5 g/dL [facility] ([place]) Albumin 3.2(L) 3.5 - 5.0 g/dL [facility] ([place]) Alk phos 160(H) 40 - 130 Units/L [facility] ([place]) ALT 63(H) 7 - 55 Units/L [facility] ([place]) AST 30 10 - 50 Units/L [facility] ([place]) Blood 08/21/2025 9:14 AM CDT 08/21/2025 9:20 AM CDT us Aline Monroy [employer] LAB BLOOD ORDERABLES Final Re sult [facility] ([place]) 1 [facility] Department of Laboratories [place] [id number] * CT KUB Stone WO Contrast (08/06/2025 1:32 PM CDT) Anatomical Region Laterality Modality Abdomen N/A Computed Tomogra phy 08/06/2025 1:45 PM CDT Narrative 08/06/2025 2:32 PM CDT EXAM DESCRIPTION: CT CHEST WO CONTRAST; CT KUB STONE WO CONTRAST REASON FOR STUDY: Accidental fall. Hit right chest wall. Complaining of right chest wall pain Right sided chest pain after fall yesterday, hematuria for several weeks ; Abdominal/flank pain, stone suspected Right sided chest pain after fall yesterday, hematuria for several weeks TECHNIQUE: CT scan of the chest, abdomen, and pelvis performed without intravenous and without oral contrast using helical scanning technique. Reconstructed coronal and sagittal MPR images reviewed. All images stored on PACS. Automated exposure control was used as a dose optimization technique for this examination. COMPARISON: CT chest 08/27/2024; CT chest abdomen pelvis 07/12/2024 FINDINGS: The sensitivity for detection of visceral lesions is diminished without the use of intravenous contrast. CHEST LUNGS: There is bibasilar subsegmental atelectasis. The central airways are patent. New 3 mm solid nodule in the right upper lobe anteriorly on image 30. There are a few calcified granulomas. PLEURA: No effusion. No pneumothorax. MEDIASTINUM/RUEL: There are several prominent but nonenlarged mediastinal lymph nodes. HEART: Normal heart size without pericardial effusion. 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 CORONARY ARTERY CALCIFICATION: Positive VASCULATURE CHEST: No thoracic aortic aneurysm. AXILLA: No adenopathy. CHEST WALL: No masses. No subcutaneous air. HARDWARE/LINES/TUBES: Median sternotomy wires are present. 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 There are no suspicious osseous lesions. ABDOMEN/PELVIS LIVER: There are 6 new hypoattenuating lesions scattered throughout the right rosaline liver and hepatic segment 4. The largest of the lesions measures 4.5 cm (series 2, image 59) and 3.3 cm (series 2, image 21). These lesions have indistinct borders. GALLBLADDER: Surgically absent BILE DUCTS: No intrahepatic or extrahepatic ductal dilatation. SPLEEN: Normal size. No focal lesions. PANCREAS: No identified cystic or solid masses. No significant calcifications. No adjacent inflammation or peripancreatic fluid collections. Pancreatic duct not dilated. ADRENALS: There is an unchanged 2.3 cm left adrenal gland nodule which is indeterminate. There is similar appearance of thickening of the right adrenal gland without a discrete nodule. KIDNEYS/URINARY TRACT: There are a few small renal cysts on the left. There is mild hydronephrosis and hydroureter bilaterally. No obstructing calculi appreciated. Question nodularity in the posterior aspect of the urinary bladder versus mass effect from the enlarged prostate. GI: There appears to be some mild wall thickening of small bowel loops in the left abdomen. No dilated loops of bowel appreciated. No sign of appendicitis. There is colonic diverticulosis without diverticulitis. PERITONEUM/RETROPERITONEUM: No ascites or free air. There is a new 3.4 x 3.2 cm irregular mass just superior to the prostate and to the right of midline (series 2, image 133). There is also a mildly enlarged 1.3 cm right internal iliac chain lymph node (series 2, image 128). REPRODUCTIVE: The prostate is enlarged and contains dystrophic calcification. It appears to cause at least some mass effect on the posterior aspect of the urinary bladder. VASCULATURE ABDOMEN: There is a moderate amount of calcified atherosclerotic plaque in the aorta and iliac vessels without aneurism. MUSCULOSKELETAL ABDOMEN PELVIS: There is no suspicious osseous lesion. OTHER: No significant abnormality. IMPRESSION: No acute traumatic abnormality in the chest, abdomen, or pelvis. Mild bilateral hydronephrosis and hydroureter. No obstructing calculi appreciated. Question nodularity in the posterior aspect of the urinary bladder versus mass effect from the enlarged prostate. A urinary bladder mass can not be excluded. Recommend correlation with cystoscopy or CT urogram. New 3.4 cm irregular mass just superior to the prostate and to the right of midline. There is also an adjacent mildly enlarged right internal iliac chain lymph node. This is concerning for malignancy. New 6 hypoattenuating lesions scattered throughout the right rosaline liver and hepatic segment 4. These lesions have a fluid density but are atypical in appearance. Consider cystic metastatic disease versus possible hepatic abscesses. Recommend clinical correlation and further evaluation with MRI liver mass protocol. New 3 mm solid nodule in the right upper lobe. Follow-up recommended. Unchanged 2.3 cm left adrenal gland nodule which is indeterminate. Mild wall thickening of small bowel loops in the left abdomen. This is nonspecific but can be seen in the setting of enteritis. Additional findings as above. THIS IS AN ELECTRONICALLY VERIFIED FINAL REPORT 08/06/2025 2:32 PM - Electronically signed by Rosendo De La Rosa M.D. AM: AM Report ID: [id number] Reading Location: [id number] Procedure Note Rosendo De La Rosa MD - 08/06/2025 EXAM DESCRIPTION: CT CHEST WO CONTRAST; CT KUB STONE WO CONTRAST REASON FOR STUDY: Accidental fall. Hit right chest wall. Complaining of right chest wall pain Right sided chest pain after fall yesterday, hematuria for several weeks; Abdominal/flank pain, stone suspected Right sided chest pain after fall yesterday, hematuria for several weeks TECHNIQUE: CT scan of the chest, abdomen, and pelvis performed without intravenous and without oral contrast using helical scanning technique. Reconstructed coronal and sagittal MPR images reviewed. All images storedon PACS. Automated exposure control was used as a dose optimizationtechnique for this examination. COMPARISON: CT chest 08/27/2024; CT chest abdomen pelvis 07/12/2024 FINDINGS: The sensitivity for detection of visceral lesions is diminished withoutthe use of intravenous contrast. CHEST LUNGS: There is bibasilar subsegmental atelectasis. The central airwaysare patent. New 3 mm solid nodule in the right upper lobe anteriorly onimage 30. There are a few calcified granulomas. PLEURA: No effusion. No pneumothorax. MEDIASTINUM/RUEL: There are several prominent but nonenlargedmediastinal lymph nodes. HEART: Normal heart size without pericardial effusion. There arechanges of CABG. CORONARY ARTERY CALCIFICATION: Positive VASCULATURE CHEST: No thoracic aortic aneurysm. AXILLA: No adenopathy. CHEST WALL: No masses. No subcutaneous air. HARDWARE/LINES/TUBES: Median sternotomy wires are present. 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 There are no suspicious osseous lesions. ABDOMEN/PELVIS LIVER: There are 6 new hypoattenuating lesions scattered throughout the right rosaline liver and hepatic segment 4. The largest of the lesionsmeasures 4.5 cm (series 2, image 59) and 3.3 cm (series 2, image 21). Theselesions have indistinct borders. GALLBLADDER: Surgically absent BILE DUCTS: No intrahepatic or extrahepatic ductal dilatation. SPLEEN: Normal size. No focal lesions. PANCREAS: No identified cystic or solid masses. No significant calcifications. No adjacent inflammation or peripancreatic fluidcollections. Pancreatic duct not dilated. ADRENALS: There is an unchanged 2.3 cm left adrenal gland nodule whichis indeterminate. There is similar appearance of thickening of the rightadrenal gland without a discrete nodule. KIDNEYS/URINARY TRACT: There are a few small renal cysts on the left.There is mild hydronephrosis and hydroureter bilaterally. No obstructingcalculi appreciated. Question nodularity in the posterior aspect of the urinary bladder versus mass effect from the enlarged prostate. GI: There appears to be some mild wall thickening of small bowel loops inthe left abdomen. No dilated loops of bowel appreciated. No sign of appendicitis. There is colonic diverticulosis without diverticulitis. PERITONEUM/RETROPERITONEUM: No ascites or free air. There is a new 3.4x 3.2 cm irregular mass just superior to the prostate and to the right of midline (series 2, image 133). There is also a mildly enlarged 1.3 cmright internal iliac chain lymph node (series 2, image 128). REPRODUCTIVE: The prostate is enlarged and contains dystrophic calcification. It appears to cause at least some mass effect on theposterior aspect of the urinary bladder. VASCULATURE ABDOMEN: There is a moderate amount of calcifiedatherosclerotic plaque in the aorta and iliac vessels without aneurism. MUSCULOSKELETAL ABDOMEN PELVIS: There is no suspicious osseous lesion. OTHER: No significant abnormality. IMPRESSION: No acute traumatic abnormality in the chest, abdomen, or pelvis. Mild bilateral hydronephrosis and hydroureter. No obstructing calculi appreciated. Question nodularity in the posterior aspect of the urinary bladder versus mass effect from the enlarged prostate. A urinary bladdermass can not be excluded. Recommend correlation with cystoscopy or CT urogram. New 3.4 cm irregular mass just superior to the prostate and to the rightof midline. There is also an adjacent mildly enlarged right internal iliacchain lymph node. This is concerning for malignancy. New 6 hypoattenuating lesions scattered throughout the right rosaline liverand hepatic segment 4. These lesions have a fluid density but are atypical in appearance. Consider cystic metastatic disease versus possible hepatic abscesses. Recommend clinical correlation and further evaluation with MRI liver mass protocol. New 3 mm solid nodule in the right upper lobe. Follow-up recommended. Unchanged 2.3 cm left adrenal gland nodule which is indeterminate. Mild wall thickening of small bowel loops in the left abdomen. This is nonspecific but can be seen in the setting of enteritis. Additional findings as above. THIS IS AN ELECTRONICALLY VERIFIED FINAL REPORT 08/06/2025 2:32 PM - Electronically signed by Rosendo De La Rosa M.D. AM: AM Report ID: [id number] Reading Location: [id number] [facility] IMG CT PROCEDURES Final Resu lt * CT Chest WO Contrast (08/06/2025 1:32 PM CDT) Anatomical Region Laterality Modality Body N/A Computed Tomogra phy 08/06/2025 1:45 PM CDT Narrative 08/06/2025 2:32 PM CDT EXAM DESCRIPTION: CT CHEST WO CONTRAST; CT KUB STONE WO CONTRAST REASON FOR STUDY: Accidental fall. Hit right chest wall. Complaining of right chest wall pain Right sided chest pain after fall yesterday, hematuria for several weeks ; Abdominal/flank pain, stone suspected Right sided chest pain after fall yesterday, hematuria for several weeks TECHNIQUE: CT scan of the chest, abdomen, and pelvis performed without intravenous and without oral contrast using helical scanning technique. Reconstructed coronal and sagittal MPR images reviewed. All images stored on PACS. Automated exposure control was used as a dose optimization technique for this examination. COMPARISON: CT chest 08/27/2024; CT chest abdomen pelvis 07/12/2024 FINDINGS: The sensitivity for detection of visceral lesions is diminished without the use of intravenous contrast. CHEST LUNGS: There is bibasilar subsegmental atelectasis. The central airways are patent. New 3 mm solid nodule in the right upper lobe anteriorly on image 30. There are a few calcified granulomas. PLEURA: No effusion. No pneumothorax. MEDIASTINUM/RUEL: There are several prominent but nonenlarged mediastinal lymph nodes. HEART: Normal heart size without pericardial effusion. 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 CORONARY ARTERY CALCIFICATION: Positive VASCULATURE CHEST: No thoracic aortic aneurysm. AXILLA: No adenopathy. CHEST WALL: No masses. No subcutaneous air. HARDWARE/LINES/TUBES: Median sternotomy wires are present. 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 There are no suspicious osseous lesions. ABDOMEN/PELVIS LIVER: There are 6 new hypoattenuating lesions scattered throughout the right rosaline liver and hepatic segment 4. The largest of the lesions measures 4.5 cm (series 2, image 59) and 3.3 cm (series 2, image 21). These lesions have indistinct borders. GALLBLADDER: Surgically absent BILE DUCTS: No intrahepatic or extrahepatic ductal dilatation. SPLEEN: Normal size. No focal lesions. PANCREAS: No identified cystic or solid masses. No significant calcifications. No adjacent inflammation or peripancreatic fluid collections. Pancreatic duct not dilated. ADRENALS: There is an unchanged 2.3 cm left adrenal gland nodule which is indeterminate. There is similar appearance of thickening of the right adrenal gland without a discrete nodule. KIDNEYS/URINARY TRACT: There are a few small renal cysts on the left. There is mild hydronephrosis and hydroureter bilaterally. No obstructing calculi appreciated. Question nodularity in the posterior aspect of the urinary bladder versus mass effect from the enlarged prostate. GI: There appears to be some mild wall thickening of small bowel loops in the left abdomen. No dilated loops of bowel appreciated. No sign of appendicitis. There is colonic diverticulosis without diverticulitis. PERITONEUM/RETROPERITONEUM: No ascites or free air. There is a new 3.4 x 3.2 cm irregular mass just superior to the prostate and to the right of midline (series 2, image 133). There is also a mildly enlarged 1.3 cm right internal iliac chain lymph node (series 2, image 128). REPRODUCTIVE: The prostate is enlarged and contains dystrophic calcification. It appears to cause at least some mass effect on the posterior aspect of the urinary bladder. VASCULATURE ABDOMEN: There is a moderate amount of calcified atherosclerotic plaque in the aorta and iliac vessels without aneurism. MUSCULOSKELETAL ABDOMEN PELVIS: There is no suspicious osseous lesion. OTHER: No significant abnormality. IMPRESSION: No acute traumatic abnormality in the chest, abdomen, or pelvis. Mild bilateral hydronephrosis and hydroureter. No obstructing calculi appreciated. Question nodularity in the posterior aspect of the urinary bladder versus mass effect from the enlarged prostate. A urinary bladder mass can not be excluded. Recommend correlation with cystoscopy or CT urogram. New 3.4 cm irregular mass just superior to the prostate and to the right of midline. There is also an adjacent mildly enlarged right internal iliac chain lymph node. This is concerning for malignancy. New 6 hypoattenuating lesions scattered throughout the right rosaline liver and hepatic segment 4. These lesions have a fluid density but are atypical in appearance. Consider cystic metastatic disease versus possible hepatic abscesses. Recommend clinical correlation and further evaluation with MRI liver mass protocol. New 3 mm solid nodule in the right upper lobe. Follow-up recommended. Unchanged 2.3 cm left adrenal gland nodule which is indeterminate. Mild wall thickening of small bowel loops in the left abdomen. This is nonspecific but can be seen in the setting of enteritis. Additional findings as above. THIS IS AN ELECTRONICALLY VERIFIED FINAL REPORT 08/06/2025 2:32 PM - Electronically signed by Rosendo De La Rosa M.D. AM: AM Report ID: [id number] Reading Location: [id number] Procedure Note Rosendo De La Rosa MD - 08/06/2025 EXAM DESCRIPTION: CT CHEST WO CONTRAST; CT KUB STONE WO CONTRAST REASON FOR STUDY: Accidental fall. Hit right chest wall. Complaining of right chest wall pain Right sided chest pain after fall yesterday, hematuria for several weeks; Abdominal/flank pain, stone suspected Right sided chest pain after fall yesterday, hematuria for several weeks TECHNIQUE: CT scan of the chest, abdomen, and pelvis performed without intravenous and without oral contrast using helical scanning technique. Reconstructed coronal and sagittal MPR images reviewed. All images storedon PACS. Automated exposure control was used as a dose optimizationtechnique for this examination. COMPARISON: CT chest 08/27/2024; CT chest abdomen pelvis 07/12/2024 FINDINGS: The sensitivity for detection of visceral lesions is diminished withoutthe use of intravenous contrast. CHEST LUNGS: There is bibasilar subsegmental atelectasis. The central airwaysare patent. New 3 mm solid nodule in the right upper lobe anteriorly onimage 30. There are a few calcified granulomas. PLEURA: No effusion. No pneumothorax. MEDIASTINUM/RUEL: There are several prominent but nonenlargedmediastinal lymph nodes. HEART: Normal heart size without pericardial effusion. There arechanges of CABG. CORONARY ARTERY CALCIFICATION: Positive VASCULATURE CHEST: No thoracic aortic aneurysm. AXILLA: No adenopathy. CHEST WALL: No masses. No subcutaneous air. HARDWARE/LINES/TUBES: Median sternotomy wires are present. 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 There are no suspicious osseous lesions. ABDOMEN/PELVIS LIVER: There are 6 new hypoattenuating lesions scattered throughout the right rosaline liver and hepatic segment 4. The largest of the lesionsmeasures 4.5 cm (series 2, image 59) and 3.3 cm (series 2, image 21). Theselesions have indistinct borders. GALLBLADDER: Surgically absent BILE DUCTS: No intrahepatic or extrahepatic ductal dilatation. SPLEEN: Normal size. No focal lesions. PANCREAS: No identified cystic or solid masses. No significant calcifications. No adjacent inflammation or peripancreatic fluidcollections. Pancreatic duct not dilated. ADRENALS: There is an unchanged 2.3 cm left adrenal gland nodule whichis indeterminate. There is similar appearance of thickening of the rightadrenal gland without a discrete nodule. KIDNEYS/URINARY TRACT: There are a few small renal cysts on the left.There is mild hydronephrosis and hydroureter bilaterally. No obstructingcalculi appreciated. Question nodularity in the posterior aspect of the urinary bladder versus mass effect from the enlarged prostate. GI: There appears to be some mild wall thickening of small bowel loops inthe left abdomen. No dilated loops of bowel appreciated. No sign of appendicitis. There is colonic diverticulosis without diverticulitis. PERITONEUM/RETROPERITONEUM: No ascites or free air. There is a new 3.4x 3.2 cm irregular mass just superior to the prostate and to the right of midline (series 2, image 133). There is also a mildly enlarged 1.3 cmright internal iliac chain lymph node (series 2, image 128). REPRODUCTIVE: The prostate is enlarged and contains dystrophic calcification. It appears to cause at least some mass effect on theposterior aspect of the urinary bladder. VASCULATURE ABDOMEN: There is a moderate amount of calcifiedatherosclerotic plaque in the aorta and iliac vessels without aneurism. MUSCULOSKELETAL ABDOMEN PELVIS: There is no suspicious osseous lesion. OTHER: No significant abnormality. IMPRESSION: No acute traumatic abnormality in the chest, abdomen, or pelvis. Mild bilateral hydronephrosis and hydroureter. No obstructing calculi appreciated. Question nodularity in the posterior aspect of the urinary bladder versus mass effect from the enlarged prostate. A urinary bladdermass can not be excluded. Recommend correlation with cystoscopy or CT urogram. New 3.4 cm irregular mass just superior to the prostate and to the rightof midline. There is also an adjacent mildly enlarged right internal iliacchain lymph node. This is concerning for malignancy. New 6 hypoattenuating lesions scattered throughout the right rosaline liverand hepatic segment 4. These lesions have a fluid density but are atypical in appearance. Consider cystic metastatic disease versus possible hepatic abscesses. Recommend clinical correlation and further evaluation with MRI liver mass protocol. New 3 mm solid nodule in the right upper lobe. Follow-up recommended. Unchanged 2.3 cm left adrenal gland nodule which is indeterminate. Mild wall thickening of small bowel loops in the left abdomen. This is nonspecific but can be seen in the setting of enteritis. Additional findings as above. THIS IS AN ELECTRONICALLY VERIFIED FINAL REPORT 08/06/2025 2:32 PM - Electronically signed by Rosendo De La Rosa M.D. AM: AM Report ID: [id number] Reading Location: [id number] us [facility] IMG CT PROCEDURES Final Resu lt * (ABNORMAL) Urinalysis reflex to microscopic and culture Urine (08/06/2025 1:24 PM CDT) Color, ur Light-Paxton Clarity, ur Turbid(A) Clear [facility] (TYRA) Specific gravity, ur 1.028 1.003 - 1.030 [facility] ([facility]) pH, urine 5.5 [facility] ([facility]) Comment: Interpretive Data U rine pH is affected by diet, medications, systemic acid-base disturbances, and renal tubular function. pH may affect urinary stone formation. For example, urine pH below 6.0 may help reduce the tendency for calcium phosphate stones and pH greater than 6.0 may reduce the tendency for uric acid stone formation. Source: [facility] Current Interpretive Data was last revised on 2017 Protein, ur ql 1+(A) Negative [facility] ([facility]) Glucose, ur ql 4+(A) Negative [facility] ([facility]) Ketones, ur Negative Negative [facility] ([facility]) Bilirubin, ur Negative Negative [facility] (TY[facility]) Blood, ur 3+(A) Negative [facility] (TY[facility]) Urobilinogen, ur <2.0 <2.0 mg/dL [facility] ([facility]) Nitrite, ur Negative Negative [facility] (TYRA) Leukocyte esterase, ur Negative Negative [facility] (TYRA) UA reflex comment Reflex to microscopic UA will be performed. KELVIN [facility] (TYRA) Urine 08/06/2025 1:24 PM CDT 08/06/2025 1:26 PM CDT us [facility] LAB MICROBIOLOGY - GENERAL O RDERABLES Final Result [facility] (TYRA) 1 [facility] Department [place] [address] * (ABNORMAL) Urinalysis, microscopic only (08/06/2025 1:24 PM CDT) WBC, ur 0-5 0 - 5 /HPF RBC, ur >50(A) 0 - 2 /HPF [facility] ([facility]) Mucous, ur Present(A) [facility] (TYRA) Culture Reflex Comment Reflex conditions for urine culture (WBC >10) not met. KELVIN [facility] (TYRA) Urine 08/06/2025 1:24 PM CDT 08/06/2025 1:26 PM CDT [facility] LAB URINE ORDERABLES Final R esult Performing Organization Address [facility] Co de Phone Number KELVIN [place]ahS[place]) 1 [facility] [email or web address] [address] * eGFR (08/06/2025 12:51 PM CDT) eGFR 81 >=60 mL/min/1. 73 m2 Comment: Interpretive Data Reference Interval Normal >/= 90 mL/min/1.73m2 Mildly decreased* 60 - 89 mL/min/1.73m2 Mildly to moderately decreased 45 - 59 mL/min/1.73m2 Moderately to severely decreased 30 - 44 mL/min/1.73m2 Severely decreased 15 - 29 mL/min/1.73m2 Kidney Failure < 15 mL/min/1.73m2 *Relative to young adult level Estimated glomerular filtration rate is determined by the 2020 CKD-EPI equation recommended by the National Kidney Foundation (A Unifying Approach to GFR Estimation: Recommendations of the NKF-ASK Task Force on Reassessing the Inclusion of Race in Diagnosing Kidney Disease, JASN 2020). The CKD-EPI equation should not be used for patients with unstable renal function and has not been validated in children and those over 70. Current interpretive data was last reviewed 2021. Blood 08/06/2025 12:5 1 PM CDT 08/06/2025 1:01 PM CDT [facility] LAB BLOOD ORDERABLES Final R esult [place]IN [place]ahS[place]) [address] [facility] [email or web address] [address] * (ABNORMAL) Differential, auto (08/06/2025 12:51 PM CDT) Neutrophil abs 7.32(H) 1.50 - 6.50 K/cumm Imm gran abs 0.03 0.00 - 0.10 K/cumm [facility] ([place]) Lymphocyte abs 1.74 0.80 - 3.30 K/cumm [facility] ([place]) Monocyte abs 0.81(H) 0.20 - 0.80 K/cumm [facility] (TRYA) Eosinophil abs 0.20 0.00 - 0.50 K/cumm [facility] ([facility]) Basophil abs 0.08 0.00 - 0.10 K/cumm [facility] ([place]) Neutrophil pct 71.8 % [facility] ([place]) Comment: Interpretive Data Percent cell count reference ranges are not reported, since discordance with absolute values may lead to misinterpretation of CBC data. Current Interpretive Data was last revised on 2018. Imm gran pct 0.3 % [facility] ([place]) Comment: Interpretive Data Percent cell count reference ranges are not reported, since discordance with absolute values may lead to misinterpretation of CBC data. Current Interpretive Data was last revised on 2018. Lymphocyte pct 17.1 % [facility] ([place]) Comment: Interpretive Data Percent cell count reference ranges are not reported, since discordance with absolute values may lead to misinterpretation of CBC data. Current Interpretive Data was last revised on 2018. Monocyte pct 8.0 % [facility] (TY[place]) Comment: Interpretive Data Percent cell count reference ranges are not reported, since discordance with absolute values may lead to misinterpretation of CBC data. Current Interpretive Data was last revised on 2018. Eosinophil pct 2.0 % [facility] ([facility]) Comment: Interpretive Data Percent cell count reference ranges are not reported, since discordance with absolute values may lead to misinterpretation of CBC data. Current Interpretive Data was last revised on 2018. Basophil pct 0.8 % [facility] ([place]) Comment: Interpretive Data Percent cell count reference ranges are not reported, since discordance with absolute values may lead to misinterpretation of CBC data. Current Interpretive Data was last revised on 2018. Blood 08/06/2025 12:5 1 PM CDT 08/06/2025 1:01 PM CDT [facility] LAB BLOOD ORDERABLES Final R esult [place]IN [place]ah[place]) 1 [facility] [email or web address] [address] * PSA screen (08/06/2025 12:51 PM CDT) Pathologist [facility] PSA-Total 0.84 <=6.20 ng/mL KELVIN ONTIVEROS ([place]) Comment: Interpretive Data AGE SEX REFERENCE INTERVAL 0 minutes-150 years Female None 0 minutes-49 years Male None 50-59 years Male 0-3.90 60-69 years Male 0-5.40 70-79 years Male 0-6.20 80-150 years Male 0-6.20 The Jourdan PSA Total assay procedure was used. Results from different manufacturers or methods may not be comparable. Serial testing should be performed using the same method. Current interpretive data last revised 22. Blood 08/06/2025 12:5 1 PM CDT 08/06/2025 4:18 PM CDT [facility]iels [facility] LAB BLOOD ORDERABLES Final R esult Performing Organization Address [facility]/ZIP Co de Phone Number KELVIN [place]ahS[place]) 1 [facility] [email or web address] [address] * (ABNORMAL) CBC with auto differential (08/06/2025 12:51 PM CDT) Pathologist [facility] WBC 10.18(H) 3.80 - 9.90 K/cumm Hgb 12.8(L) 13.0 - 17.5 g/dL [facility] ([facility]) Hct 41.5 38.9 - 50.3 % [facility] (TY[facility]) Plt 262 150 - 400 K/cumm [facility] ([facility]) MPV 9.9 9.1 - 12.3 fL [facility] ([facility]) RBC 4.85 4.30 - 5.80 M/cumm [facility] ([facility]) MCV 85.6 81.3 - 96.4 fL [facility] ([facility]) MCH 26.4(L) 27.1 - 33.3 pg [facility] ([facility]) MCHC 30.8(L) 32.3 - 35.7 g/dL [facility] ([place]) RDW CV 14.6 11.1 - 14.9 % [facility] ([place]) RDW SD 45.1 35.7 - 48.1 fL [facility] (TYRA) NRBC abs 0.00 0.00 - 0.01 K/cumm [facility] (TYRA) Blood 08/06/2025 12:5 1 PM CDT 08/06/2025 1:01 PM CDT us Niels [facility] LAB BLOOD ORDERABLES Final R esult [facility] ([place]) 1 [facility] Department [place] [address] * (ABNORMAL) Comprehensive metabolic panel (08/06/2025 12:51 PM CDT) Sodium 140 135 - 145 mmol/L [facility] ([facility]) Potassium, pl 3.9 3.3 - 4.9 mmol/L [facility] ([facility]) Chloride 103 97 - 110 mmol/L [facility] ([facility]) CO2 24 22 - 32 mmol/L [facility] ([facility]) Anion gap 13 2 - 15 mmol/L [facility] (TYRA) BUN 10 6 - 25 mg/dL [facility] (TYRA) Creatinine 1.00 0.80 - 1.30 mg/dL [facility] ([facility]) Glucose 311(H) 70 - 199 mg/dL [facility] ([facility]) Comment: Interpretive Data Fasting glucose >/= 126 mg/dl is diagnostic for diabetes. Fasting is defined as no caloric intake for at least 8 hours. Fasting glucose between 100 mg/dl to 125 mg/dl is diagnostic of prediabetes. In a patient with classic symptoms of hyperglycemia or hyperglycemic crisis, a random glucose >/= 200 mg/dl is diagnostic for diabetes. In the absence of unequivocal hyperglycemia, results should be confirmed by repeat testing. The classification and Diagnosis of Diabetes Diabetes Care 2021; 46: S19-S40. Current interpretive data was last revised 2022. Calcium 9.5 8.5 - 10.3 mg/dL [facility] ([facility]) Bilirubin, total 0.3 0.1 - 1.2 mg/dL [facility] (TY[facility]) Protein, pl 6.6 6.5 - 8.5 g/dL [facility] ([facility]) Albumin 3.8 3.5 - 5.0 g/dL [facility] ([facility]) Alk phos 145(H) 40 - 130 Units/L [facility] (TY[facility]) ALT 62(H) 7 - 55 Units/L [facility] ([facility]) AST 38 10 - 50 Units/L [facility] (TYRA) Blood 08/06/2025 12:5 1 PM CDT 08/06/2025 1:01 PM CDT Niels [facility] LAB BLOOD ORDERABLES Final R esult [facility] (TYRA) 1 [facility] Department [place] [address] * (ABNORMAL) Lipid panel (06/28/2024 4:57 AM CDT) Cholesterol 103 30 - 199 mg/dL Comment: Interpretive Data Ages < or = 19 years Acceptable: <170 mg/dL Borderline high: 170-199 mg/dL High: >or= 200 mg/dL Ages > or = 20 years Desirable: <200 mg/dL Borderline high: 200-239 mg/dL High: >or= 240 mg/dL Literature References: 1. Expert Panel on Integrated Guidelines for Cardiovascular Health and Risk Reduction in Children and Adolescents. Pediatrics 2011;128:S213 2. NCEP Expert Panel. Circulation 2004;110:227 Current Interpretive Data was last revised on 2018. Triglycerides 140 <=149 mg/dL KELVIN Comment: Interpretive Data Ages < or = 9 years Acceptable: <75 mg/dL Borderline high: 75-99 mg/dL High: >or= 100 mg/dL Ages 10 to 20 years Acceptable: <90 mg/dL Borderline high: 90-129 mg/dL High: >or= 130 mg/dL Ages > or = 20 years Desirable: <150 mg/dL Borderline high: 150-199 mg/dL High: 200-499 mg/dL Very high: >or= 499 mg/dL Literature References: 1. Expert Panel on Integrated Guidelines for Cardiovascular Health and Risk Reduction in Children and Adolescents. Pediatrics 2011;128:S213 2. NCEP Expert Panel. Circulation 2004;110:227 Current Interpretive Data was last revised on 2018. HDL 29(L) >=40 mg/dL KELVIN REARDON Comment: Interpretive Data Ages < or = 19 years Acceptable: >45 mg/dL Borderline low: 40-45 mg/dL Low: <40 mg/dL Ages > or = 20 years Desirable: >or= 60 mg/dL Low: <40 mg/dL Literature References: 1. Expert Panel on Integrated Guidelines for Cardiovascular Health and Risk Reduction in Children and Adolescents. Pediatrics 2011;128:S213 2. NCEP Expert Panel. Circulation 2004;110:227 Current Interpretive Data was last revised on 2018. LDL, calculated 49 <=129 mg/dL KELVIN REARDON Comment: Interpretive Data Ages < or = 19 years Acceptable: <110 mg/dL Borderline high: 110-129 mg/dL High: >or= 130 mg/dL Ages > or = 20 years Optimal: <100 mg/dL Near optimal: 100-129 mg/dL Borderline high: 130-159 mg/dL High: >160 mg/dL Calculated using the Memo LDL-C estimating equation. This equation was implemented on 2024. Prior to this date LDL-C was estimated using the Friedewald equation. Literature References: 1. Expert Panel on Integrated Guidelines for Cardiovascular Health and Risk Reduction in Children and Adolescents. Pediatrics 2011;128:S213 2. NCEP Expert Panel. Circulation 2004;110:227 3. Memo Sutton al. RIGOBERTO Cardiol. 2020 March 06;5(5):540-548. doi: 10.1001/[email or web address].2020.0013 Current Interpretive Data was last revised on 2024. Non-HDL Cholesterol 74 mg/dL KELVIN REARDON Comment: Interpretive Data Ages < or = 19 years Acceptable: <120 mg/dL Borderline high: 120-144 mg/dL High: >145 mg/dL Ages > or = 20 years When triglycerides are >200 mg/dL, Non-HDL cholesterol is a secondary target of therapy with treatment goals that are 30 mg/dL greater than the LDL cholesterol target. Literature References: 1. Expert Panel on Integrated Guidelines for Cardiovascular Health and Risk Reduction in Children and Adolescents. Pediatrics 2011;128:S213 2. NCEP Expert Panel. Circulation 2004;110:227 Current Interpretive Data was last revised on 2018. Chol/HDL ratio 4 KELVIN REARDON Blood 06/28/2024 4:57 AM CDT 06/28/2024 5:09 AM CDT Pinky Boo NP LAB BLOOD ORDERABLES nal Result KELVIN REARDON [id number] Department [place] [address] from Last 3 Months or Most Recently Relevant to Health Maintenance Additional Health Concerns Active Problems Noted Date Diagnosed Date eSyM Medical Oncology 09/04/[address] [facility] MEDICARE ADVANTAGE [facility] MEDICARE Address: [facility] [address] [place] [address] [facility] MEDICARE ADVANTAGE [facility] MEDICARE Address: [facility] [address] [place] [address] Advance Directives For more information, please contact: [phone] * Full Code (Latest Code Status on File) Date Activated Date Inactivated Comments 08/27/2025 4:37 AM 09/04/2025 3:53 PM * Full Code Date Activated Date Inactivated Comments 08/21/2025 11:32 AM 08/26/2025 11:38 PM * Full Code Date Activated Date Inactivated Comments 08/02/2024 9:26 AM 08/07/2024 5:54 PM * Full Code Date Activated Date Inactivated Comments 06/21/2024 3:54 PM 06/28/2024 5:09 PM * Full Code Date Activated Date Inactivated Comments 06/14/2024 2:27 PM 06/14/2024 8:50 PM Care Teams Mechanical Design Technician Relationship Specialty Start Date End Date Skip Quick MD PCP - General Family Practice 01/08/21 Stu Kim MD Surgeon Cardiothoracic Surgery 06/28/24 Gumaro Khan MD Consulting Physician Cardiology 06/28/24 Miscellaneous, Not In File 06/28/24 Johnny Nagy MD [address] [place] [address] [address] Surgeon General Surgery 08/06/24 [place] [address] [address] Consulting Physician Urology 09/04/25 Ryder De Leon MD [address] [place] [address] Consulting Physician Hematology and Oncology 09/04/25
[2025-09-09 15:40] LABS: Hemoglobin A1C 8.9 % (<5.7)
== END 2025-09-09 11:10 | disposition home or self-care (01) ==
PROVIDERS: PCP Family Medicine; Visit Provider Family Medicine
DX: I10 Essential (primary) hypertension (principal); E11.9 Type 2 diabetes mellitus without complications
CPT/HCPCS: 36415; 80053; 83036